=== PATIENT | female | born 1985 | race Caucasian/White ===

== ENCOUNTER 2021-11-05 10:03 | Emergency (ER) | payer OTHER, SELFPAY ==
--- NOTE | 2021-11-05 10:09 | ED.URI ---
HPI - URI/Sore Throat General Chief Complaint: Upper Respiratory Infection Stated Complaint: Cough,Headache,Body Aches Source: patient, RN notes reviewed and old records reviewed History of Present Illness HPI Narrative: 36-year-old female presents with 1-1/2 days of cough, generalized headache, sinus congestion. She also complains of chills. Denies fevers. Has taken Tylenol and ibuprofen for symptoms. MD elicited complaint: cough Pertinent past history: sinusitis Related Data Allergies Allergy/AdvReac Type Severity Reaction Status Date / Time cefprozil Allergy Intermediate DIARRHEA Verified 11/05/21 10:13 clavulanic acid Allergy Intermediate Nausea and Verified 11/05/21 10:13 Vomiting methylphenidate Allergy Intermediate Confusion Verified 11/05/21 10:13 metoclopramide Allergy Intermediate Confusion Verified 11/05/21 10:13 azithromycin AdvReac Intermediate CONSTANT Verified 11/05/21 10:13 DIARRHEA Review of Systems Review of Systems: All systems reviewed & are unremarkable except as noted in HPI and below Constitutional: Constitutional: Reports as per HPI, Reports chills and Denies fever(s) Eyes: Eyes: Reports no additional eye complaints ENT: Reports as per HPI, Reports nasal congestion and Denies sore throat Cardiovascular: Cardiovascular: Denies chest pain Respiratory: Respiratory: Reports as per HPI, Denies chest congestion, Reports cough, Denies dyspnea and Denies wheezing Gastrointestinal: Gastrointestinal: Reports no additional gastrointestinal complaints, Denies abdominal pain, Denies nausea and Denies vomiting Musculoskeletal: Musculoskeletal: Reports no additional musculoskeletal complaints Integumentary/Breasts: Skin/Breast: Reports system reviewed and no additional complaints, except as docu Neurologic: Reports as per HPI and Reports headache(s) Psychiatric: Psychiatric: Reports no additional psychiatric complaints Allergic/Immunologic: Allergic/Immunologic: Reports no additional allergic/immunologic complaints [facility] Surgical History Surgical History (Updated 11/05/21 @ 10:38 by Angelique Shen) Hx of cholecystectomy Social History Social History (Updated 11/05/21 @ 10:38 by Angelique Shen) Living arrangements: with family Gender identity (if verbalized by the patient): Female Comments At the time of my signature, I reviewed and agree with the nursing past medical, surgical, social, and family history. There is no relevant family history pertinent to the patient complaint. Exam Const: General: healthy appearing, no acute distress and alert Nutritional Appearance: well nourished and obese morbidly obese Orientation/consciousness: patient oriented x3 Limitations: no limitations HENMT: Head: normal to inspection Ears: external ears normal, TM's normal bilaterally and EAC's normal Eyes: Conjunctivae: conjunctivae normal Pupils: Equal, round and reactive pupils present Neck: Neck: normal visual inspection, no lymphadenopathy and no meningeal signs Chest: Chest palpation & inspection: normal inspection of the chest Resp: Effort & Inspection: normal respiratory effort and no use of accessory muscles Auscultation: clear to auscultation bilaterally, no crackles, no rales, no rhonchi and no wheezes Cardio: Rate: regular rate Rhythm: regular rhythm Back/Spine/Pelvis: Back: no CVA tenderness Skin: General skin exam: normal color Rashes: no rashes Wounds: no wounds Neuro: General: patient oriented x3, moves all extremities, no meningeal signs and no focal motor deficits Speech: normal speech Gait exam (Neuro): Normal gait present Extrem: General: normal to inspection Psych: Appearance: grossly normal and well kempt Mental Status: mental status grossly normal Affect: normal affect Thought content: Yes Normal thought content present Course Course Emergency Course: Discharge instructions reviewed with patient, as well as provided in writing per nursing staff. The ins
[2021-11-05 10:23] VITALS: BP 159/98; PULSE 112; RESP 18; TEMP 37.6; O2SAT 98
== END 2021-11-05 10:43 | disposition home or self-care (01) ==
PROVIDERS: Emergency Provider Nurse Practitioner; PCP Emergency Medicine
DX: J06.9 Acute upper respiratory infection, unspecified (principal)
CPT/HCPCS: 99213; G0463

== ENCOUNTER 2022-10-18 15:31 | Emergency (ER) | payer OTHER, SELFPAY ==
[2022-10-18 15:55] VITALS: BP 147/101; PULSE 99; RESP 18; TEMP 36.4; O2SAT 98
--- NOTE | 2022-10-18 15:56 | ED.URI ---
HPI - URI/Sore Throat General Chief Complaint: Upper Respiratory Infection Stated Complaint: cough,congestion Time Seen by Provider: 10/18/22 15:57 Source: patient, RN notes reviewed and old records reviewed Mode of arrival: ambulatory Limitations: no limitations History of Present Illness HPI Narrative: 36-year-old female to the [facility] with complaints of cough and congestion for about 1 week. Also complaining of a rash that she normally uses triamcinolone on on the right lateral abdomen. Has tried a couple [id number] cold medications denies chest pain, shortness of breath or abdominal pain. No nausea vomiting or diarrhea. Related Data Allergies Allergy/AdvReac Type Severity Reaction Status Date / Time cefprozil Allergy Intermediate DIARRHEA Verified 10/18/22 16:01 clavulanic acid Allergy Intermediate Nausea and Verified 10/18/22 16:01 Vomiting methylphenidate Allergy Intermediate Confusion Verified 10/18/22 16:01 metoclopramide Allergy Intermediate Confusion Verified 10/18/22 16:01 azithromycin AdvReac Intermediate CONSTANT Verified 10/18/22 16:01 DIARRHEA Review of Systems Review of Systems: All systems reviewed & are unremarkable except as noted in HPI and below Constitutional: Constitutional: Reports no additional constitutional complaints Eyes: Eyes: Reports no additional eye complaints ENT: Reports as per HPI and Reports nasal congestion Cardiovascular: Cardiovascular: Reports no additional cardiovascular complaints, Denies chest pain and Denies dyspnea Respiratory: Respiratory: Reports as per HPI, Denies chest congestion, Reports cough and Denies dyspnea Gastrointestinal: Gastrointestinal: Reports no additional gastrointestinal complaints, Denies abdominal pain, Denies nausea and Denies vomiting Musculoskeletal: Musculoskeletal: Reports no additional musculoskeletal complaints Integumentary/Breasts: Skin/Breast: Reports as per HPI and Reports rash Neurologic: Reports system reviewed and no additional complaints, except as documented Psychiatric: Psychiatric: Reports no additional psychiatric complaints Allergic/Immunologic: Allergic/Immunologic: Reports no additional allergic/immunologic complaints [facility] Surgical History Surgical History Hx of cholecystectomy Social History Social History Gender identity (if verbalized by the patient): Female Comments At the time of my signature, I reviewed and agree with the nursing past medical, surgical, social, and family history. There is no relevant family history pertinent to the patient complaint. Exam Const: General: cooperative, healthy appearing, comfortable, no acute distress, alert and well nourished Nutritional Appearance: well nourished and obese Orientation/consciousness: patient oriented x3 Limitations: no limitations HENMT: Head: normal to inspection Ears: hearing grossly normal bilaterally and external ears normal Face/Nose/Sinus: Normal external nose present, Normal nares present, Normal nasal mucous membranes and turbinates present and normal facial exam Face and sinus: normal facial exam Mouth: Yes Normal oral and palatal mucosa present, Yes lip normal and Yes moist mucous membranes Throat: posterior oropharynx normal, uvula midline and postnasal drainage Eyes: General: appearance normal, both eyes and all related structures Alignment and Position: alignment normal Periorbital: periorbital findings normal Conjunctivae: conjunctivae normal Pupils: Equal, round and reactive pupils present EOM: EOMs intact bilaterally Neck: Neck: normal visual inspection, full ROM, no lymphadenopathy and no meningeal signs Chest: Chest palpation & inspection: normal inspection of the chest Resp: Effort & Inspection: normal respiratory effort and able to speak in complete sentences Auscultation: clear to auscultation bilat
== END 2022-10-18 16:27 | disposition home or self-care (01) ==
PROVIDERS: Emergency Provider Nurse Practitioner; PCP Emergency Medicine
DX: J06.9 Acute upper respiratory infection, unspecified (principal); R21 Rash and other nonspecific skin eruption; R09.82 Postnasal drip
CPT/HCPCS: 99213; G0463

== ENCOUNTER 2024-10-12 10:15 | Outpatient (CLI) | payer OTHER, SELFPAY ==
[2024-10-12 11:43] LABS: Basophils Absolute Auto 0.1 K/mm3 (0.0-0.1); Basophils Percent Auto 0.4 % (0.2-1.2); Eosinophils Absolute Auto 0.2 K/mm3 (0-0.3); Eosinophils Percent Auto 1.3 % (0-4.4); Hematocrit 41.8 % (37.0-47.0); Hemoglobin 14.1 g/dL (12.0-15.0); Immature Granulocyte Absolute 0.13 K/mm3 (0.00-0.031); Immature Granulocyte Percent A 0.9 % (0-0.5); Lymphocytes Percent Auto 17.5 % (18.3-44.2); Mean Corpuscular HGB Conc 33.7 g/dl (32-36); Mean Corpuscular Hemoglobin 29.7 pg (26-34); Mean Corpuscular Volume 88.2 fl (80-100); Mean Platelet Volume 8.8 fl (7.4-10.4); Monocytes Absolute Auto 0.6 K/mm3 (0.1-0.6); Monocytes Percent Auto 4.2 % (2.6-8.5); Neutrophils Absolute Auto 10.8 K/mm3 (1.3-6.7); Neutrophils Percent Auto 75.7 % (45.5-73.1); Platelet Count Result 293 k/mm3 (150-375); Red Blood Count 4.74 M/mm3 (4.2-5.4); Red Cell Distribution Width 12.5 % (11.5-14.5); White Blood Count 14.3 K/mm3 (4.5-10.0)
[2024-10-12 11:54] LABS: Glucose 1 Hour PP 50gm Dose 124 mg/dL
[2024-10-12 12:36] LABS: HIV 1/2 Ab P24 Ag Result Negative (Negative)
[2024-10-12 12:38] LABS: Hepatitis B Surface Antigen Negative (Negative); Rubella IgG Antibody 4.7 IU/ML
[2024-10-12 14:07] LABS: Rapid Plasma Reagin Non-Reactive (NonReactive)
[2024-10-13 08:27] LABS: Varicella IgG Antibody 7.51 S/CO
== END 2024-10-12 10:16 | disposition home or self-care (01) ==
LOC: ANHLAB 10:17
PROVIDERS: PCP Emergency Medicine; Visit Provider Student in an Organized Health Care Education/Training Program
DX: N94.89 Other specified conditions associated with female genital organs and menstrual cycle (principal)
CPT/HCPCS: 36415; 82947; 84702; 85025; 86592; 86644; 86703; 86747; 86762; 86787; 86850; 86900; 86901; 87086; 87340; G0432

== ENCOUNTER 2024-11-11 10:34 | Outpatient (CLI) | payer OTHER, SELFPAY ==
--- NOTE | ~2024-11-11 | US_ITS ---
EXAMINATION: US OB limited DATE: 11/11/2024 12:19 INDICATION: Unable to keep may be on monitor TECHNIQUE: Real-time ultrasound of the pelvis was performed. The interpreting radiologist was not pre sent for the study. COMPARISON: None. FINDINGS: There is a single living fetus in vertex presentation. The placenta is anterior fundal. heart rate is 153 beats per minute (bpm). The amniotic fluid volume is subjectively normal with normal deep est vertical pocket measurement of 6.5 cm. IMPRESSION: 1. Single living fetus in vertex presentation with heart rate of 153 bpm. 2. Subjectively normal amniotic fluid volume. Reviewed, dictated and finalized at location B. AT[employer] PROFESSIONAL IMPRESSION: 1. Single living fetus in vertex presentation with heart rate of 153 bpm . 2. Subjectively normal amniotic fluid volume.
[2024-11-11 11:13] VITALS: BP 134/62; PULSE 84
[2024-11-11 11:16] VITALS: BP 131/56; PULSE 91
[2024-11-11 11:20] LABS: Basophils Absolute Auto 0.1 K/mm3 (0.0-0.1); Basophils Percent Auto 0.5 % (0.2-1.2); Eosinophils Absolute Auto 0.2 K/mm3 (0-0.3); Eosinophils Percent Auto 1.5 % (0-4.4); Hematocrit 37.8 % (37.0-47.0); Hemoglobin 12.9 g/dL (12.0-15.0); Immature Granulocyte Absolute 0.13 K/mm3 (0.00-0.031); Lymphocytes Absolute Auto 2.25 K/mm3 (0.9-3.2); Lymphocytes Percent Auto 17.4 % (18.3-44.2); Mean Corpuscular HGB Conc 34.1 g/dl (32-36); Mean Corpuscular Volume 87.9 fl (80-100); Mean Platelet Volume 8.8 fl (7.4-10.4); Monocytes Absolute Auto 0.9 K/mm3 (0.1-0.6); Monocytes Percent Auto 6.6 % (2.6-8.5); Neutrophils Absolute Auto 9.5 K/mm3 (1.3-6.7); Platelet Count Result 296 k/mm3 (150-375); Red Cell Distribution Width 13.1 % (11.5-14.5)
[2024-11-11 11:24] LABS: Add Urine Microscopic? YES; Appearance Urine Cloudy (Clear); Bacteria Urine 4+ /hpf; Bilirubin Urine Negative (Negative); Blood Urine Negative (Negative); Color Urine Yellow (Yellow); Glucose Urine UA 3+ mg/dL (Negative); Ketones Urine Negative (Negative); Leukocyte Esterase Ur 2+ LEU/UL (Negative); Nitrate Urine Negative (Negative); Non Pathogenic Casts 0-2; Protein Urine Trace mg/dL (Negative); RBC Urine 0-2 /hpf (0-2); Specific Grav Ur 1.022 (1.001-1.035); Squamous Epithelial Cell Urine Many /hpf (Few); Urobilinogen Urine 0.2 mg/dL (<2.0); WBC Urine 21-50 /hpf (0-3); pH Urine 5.5 (5.0-9.0)
[2024-11-11 11:29] LABS: Alanine Aminotransferase 13 U/L (6-35); Albumin Level 3.4 g/dL (3.5-5.1); Alkaline Phosphatase 58 U/L (38-126); Anion Gap 3 mmol/L (4-12); Aspartate Amino Transferase 15 U/L (14-36); Bilirubin,Total 0.3 mg/dL (0.2-1.3); Blood Urea Nitrogen 7 mg/dL (7-17); Calcium 9.2 mg/dL (8.4-10.2); Carbon Dioxide 22 mmol/L (22-30); Chloride 109 mmol/L (98-107); Estimated Glomerular Filt Rate > 60; Glucose 103 mg/dL (65-110); Potassium 3.7 mmol/L (3.4-5.0); Sodium 134 mmol/L (137-145); Uric Acid 4.1 mg/dL (2.5-7.5)
[2024-11-11 11:31] VITALS: BP 130/62; PULSE 79
[2024-11-11 11:37] LABS: Creatinine Urine 94.8 mg/dL; Total Protein Urine Random 8 mg/dL; Ur Ttl Prot Creatinine Ratio 0.08 mg/mg (0-0.20)
--- NOTE | 2024-11-11 11:38 | PC.NURSE ---
Unable to keep baby on the monitor due to gestational age and maternal size, FHT's 130's. Dr Villeda notified and orders for US to confirm well being.
[2024-11-11 12:15] VITALS: BMI 60.3
== END 2024-11-11 12:15 | disposition home or self-care (01) ==
LOC: ANHOBOP 10:37 → ANHOBPP 10:39
PROVIDERS: PCP Emergency Medicine; Visit Provider Obstetrics & Gynecology
DX: O13.9 Gestational [pregnancy-induced] hypertension without significant proteinuria, unspecified trimester (principal); Z3A.00 Weeks of gestation of pregnancy not specified
CPT/HCPCS: 36415; 76815; 80053; 81001; 82570; 84156; 84550; 85025; 87086; 99199

== ENCOUNTER 2024-12-06 08:17 | Outpatient (CLI) | payer OTHER, SELFPAY ==
--- OUTSIDE RECORDS SUMMARY | 2024-12-06 08:33 | XMS_ITS | Clinical Summary ---
Author Organization [facility] Address [address] [place] [address]. 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 6 tablet 3 Active aspirin 81 MG chewable tablet Chew 2 tablets (162 mg total) by mouth daily. Active albuterol sulfate HFA 108 (90 Base) MCG/ACT inhaler Inhale 4 puffs into the lungs every 4 (four) hours as needed for Wheezing or Shortness of breath (cough). 18 g 4 Active Encounters Date Type Department Care Team Description 09/12/2024 11:00 AM INSULATOR TECHNICIAN - 09/12/2024 12:27 PM [facility] Emergency [facility] Emergency Room [address] [place] [address] Amanda Marquez MD URI Discharge Disposition: Home or Self Care (Routine Discharge) 09/12/2024 Travel from Last 3 Months Social History Tobacco Use Types Packs/Day Years Used Date Smoking Tobacco: Never Smokeless Tobacco: Never Tobacco Cessation:Counseling Given: Not Answered Comments Yes Sex and Gender Information Value Date Recorded Sex Assigned at Not on file Legal Sex Female 7:54 PM CDT Gender Identity Not on file Sexual Orientation Not on file Last Filed Vital Signs Vital Sign Reading Time Taken Comments Blood Pressure 131/72 09/12/2024 12:25 PM INSULATOR TECHNICIAN Pulse 70 09/12/2024 12:25 PM INSULATOR TECHNICIAN Temperature 36.7 ??C (98 ??F) 09/12/2024 12:25 PM INSULATOR TECHNICIAN Respiratory Rate 22 09/12/2024 12:25 PM INSULATOR TECHNICIAN Oxygen Saturation 95% 09/12/2024 12:25 PM INSULATOR TECHNICIAN Inhaled Oxygen Concentration - - Weight 159.2 kg (351 lb) 09/12/2024 11:02 AM INSULATOR TECHNICIAN Height 165.1 cm (5' 5 ) 09/12/2024 11:02 AM INSULATOR TECHNICIAN Body Mass Index 58.41 09/12/2024 11:02 AM INSULATOR TECHNICIAN Plan of Treatment Health Maintenance Due Date Last Done Comments Cervical Cancer Screening Pa p Smear (Age 30 to 64) Every 3 Years 1987 Annual Physical 1990 Hepatitis C 2005 DTaP, Tdap and Td Vaccines ( 1 - Tdap) 2006 Hepatitis B Vaccines (1 of 3 - 19+ 3-dose series) 2006 Cervical Cancer Screening Pa p with HPV Testing (Age 30 to 64) Every 5 Years 2017 Cervical Cancer Screening [facility] HPV 2017 COVID-19 Vaccine ( - 2023-2 5 season) 2024 Influenza Adult (#1) 2024 08/06/2019, 07/30/2018, 10/08/2017 RSV Immunization or 60+ Years (1 - 1-dose 75+ series) 2062 HPV Vaccines Aged Out No longer eligi ble based on patient's age to complete this topic Meningococcal B Vaccine Aged Out No l onger eligible based on patient's age to complete this topic Meningococcal Vaccine Aged Out No timur kosta eligible based on patient's age to complete this topic Pneumococcal Vaccine: Pediatrics (0 to 5 Years) and At-Risk Patients (6 to 64 Years) Aged Out No longer eligible b ased on patient's age to complete this topic RSV Immunizations Under 20 Months Aged Out No longer eligible b ased on patient's age to complete this topic Procedures Procedure Name Priority Date/Time Associated Diagnosis Comments XR CHEST PA+LAT STAT 09/12/2024 11:50 AM INSULATOR TECHNICIAN INFLUENZA A & B STAT 09/12/2024 11:23 AM INSULATOR TECHNICIAN CORONAVIRUS (COVID 19) STAT 09/12/2024 11:23 AM INSULATOR TECHNICIAN from Last 3 Months Results * XR CHEST PA+LAT (09/12/2024 11:50 AM INSULATOR TECHNICIAN) Anatomical Region Laterality Modality Chest Radiographic Carmen ging 09/12/2024 11:5 4 AM INSULATOR TECHNICIAN Impressions 09/12/2024 11:54 AM INSULATOR TECHNICIAN IMPRESSION: No acute findings Ordered By: AMANDA MARQUEZ Interpreted By: Caden Valente MD, 09/12/2024 11:54 AM Narrative 09/12/2024 11:54 AM INSULATOR TECHNICIAN [address] [place] [address] 2 VIEWS OF THE CHEST Clinical history: Cough Comparison: None 2 views of the chest demonstrate the cardiac silhouette to be normal in size and appearance. The pulmonary vasculature appears normal. The Lungs are clear. No consolidations or effusions are seen. Procedure Note Caden Valente MD - 09/12/[address] [place] [address] 2 VIEWS OF THE CHEST Clinical history: Cough Comparison: None 2 views of the chest demonstrate the cardiac silhouette to be normal insize and appearance. The pulmonary vasculature appears normal. The Lungsare clear. No consolidations or effusions are seen. IMPRESSION: No acute findings Ordered By: AMANDA MARQUEZ Interpreted By: Caden Valente MD, 09/12/2024 11:54 AM us Amanda Marquez MD GENERAL IMAGING Final Resu lt * CORONAVIRUS (COVID-19) MOLECULAR (09/12/2024 11:23 AM INSULATOR TECHNICIAN) CORONAVIRUS SARS COV 2 RNA NEGATIVE NEGATIVE 09/12/2024 12:17 PM INSULATOR TECHNICIAN [facility] Comment: NEGATIVE RESULTS DO NOT RULE OUT COVID 19 AND SHOULD NOT BE USED THE SOLE BASIS FOR TREATMENT OR PATIENT MANAGEMENT DECISIONS, INCLUDING INFECTION CONTROL DECISIONS. NEGATIVE RESULTS SHOULD BE CONSIDERED IN THE CONTEXT OF A PATIENT'S RECENT EXPOSURES, HISTORY AND THE PRESENCE OF CLINICAL SIGNS AND SYMPTOMS CONSISTENT WITH COVID 19. THE ID NOW COVID-19 2.0 TEST HAS BEEN AUTHORIZED BY THE FDA UNDER EAU FOR USE BY AUTHORIZED LABORATORIES. PERFORMED BY NUCLEIC ACID AMPLIFICATION FOR MOLECULAR QUALITATIVE DETECTION OF SARS-COV-2. SPECIMEN TYPE NASAL 09/12/2024 11:23 AM INSULATOR TECHNICIAN [facility] NASOPHARYNGEAL SWAB / Unknown 09/12/2024 11:23 AM INSULATOR TECHNICIAN Amanda Marquez MD MICROBIOLOGY - GENERAL ORD ERABLES Final Result [facility] [address] [place] [address], [place] [phone] * INFLUENZA A & B (09/12/2024 11:23 AM INSULATOR TECHNICIAN) SPECIMEN TYPE NASOPHARYNX 09/12/2024 11:59 AM INSULATOR TECHNICIAN [facility] INFLUENZA A NEGATIVE NEGATIVE 09/12/2024 11:59 AM INSULATOR TECHNICIAN [facility] INFLUENZA B NEGATIVE NEGATIVE 09/12/2024 11:59 AM INSULATOR TECHNICIAN [facility] NASOPHARYNGEAL SWAB / Unknown 09/12/2024 11:23 AM INSULATOR TECHNICIAN us Amanda Marquez MD MICROBIOLOGY - GENERAL ORD ERABLES Final Result [facility] [address] [place] [address], from Last 3 Months Insurance [employer] Care Teams Thermoforming Machine Operator Relationship Specialty Start Date End Date Yvon Crook MD [address] [place] [address] PCP - General FAMILY PRACTICE 12/18/22
--- OUTSIDE RECORDS SUMMARY | 2024-12-06 08:33 | XMS_ITS | Referral Summary ---
Author Organization [facility] Address [address] [address] Care Team Providers Care Nursing Technician Name Role Phone Unavailable Primary Care Provider Unavailabl e Source Comments [facility],non-owned Affiliates and Associated Physician Practices is amultiple site organization consisting of ambulatory clinics and hospital sitesin [place], [place], [place] and [place]. This disclosure is being madepursuant to the Care Everywhere program and may not contain all information available regarding this patient. Last updated 18.[facility] Encounters Date Type Department Care Team Description 11/09/2024 9:43 AM CRIMINOLOGY PROFESSOR - 11/09/2024 11:59 PM CRIMINOLOGY PROFESSOR Hospital Encounter Replaced by [facility] [address] [place], [place] [id number] Head, Shanel Chen MD Discharge Disposition: Home or Self Care 10/26/2024 8:15 AM CRIMINOLOGY PROFESSOR - 10/26/2024 11:59 PM CRIMINOLOGY PROFESSOR Hospital Encounter Replaced by [facility] [address] [place] [phone] Walter Joshi MD Discharge Disposition: Home or Self Care 10/12/2024 9:00 AM CRIMINOLOGY PROFESSOR - 10/12/2024 11:59 PM CRIMINOLOGY PROFESSOR Hospital Encounter Replaced by [facility] [address] [place] [phone] Lobito Alexander DO SWITCH REPAIRER Discharge Disposition: Home or Self Care 09/28/2024 8:09 AM CRIMINOLOGY PROFESSOR - 09/28/2024 11:59 PM CRIMINOLOGY PROFESSOR Hospital Encounter Replaced by [facility] [address] [place] [phone] Tamia Rangel MD Discharge Disposition: Home or Self Care 09/15/2024 Travel 09/15/2024 12:08 PM CRIMINOLOGY PROFESSOR - 09/15/2024 3:18 PM CRIMINOLOGY PROFESSOR Hospital Encounter [facility] [address] [place] [address] Head, Shanel Chen MD Discharge Disposition: Home or Self Care 09/15/2024 Telephone Replaced by [facility] [address] [place] [phone] Monica Meléndez, DEVANTE Question (Called to see if OB has intial labs are back.) 09/15/2024 8:56 AM CRIMINOLOGY PROFESSOR - 09/15/2024 12:07 PM CRIMINOLOGY PROFESSOR Hospital Encounter Replaced by [facility] [address] [place] [phone] Walter Joshi MD Discharge Disposition: Home or Self Care 09/15/2024 8:54 AM CRIMINOLOGY PROFESSOR - 09/15/2024 8:55 AM CRIMINOLOGY PROFESSOR Hospital Encounter Replaced by [facility] [address] [place] [phone] Walter Joshi MD Discharge Disposition: Home or Self Care 09/14/2024 Telephone Replaced by [facility] [address] [place] [phone] Monica Meléndez RN Future Appointment (Called patient about her upcoming appt tomorrow regarding PTD at 32 weeks. ) from Last 3 Months Allergies Active Allergy Reactions Criticality Noted Date Comments Augmentin Nausea and/or Vomiting 08/24/2024 Azithromycin Diarrhea 08/24/2024 Cefprozil Diarrhea 08/24/2024 Methylphenidate CREW BOSS Dysfunction 08/24/2024 Metoclopramide CREW BOSS Dysfunction 08/24/2024 Medications * Be aware that medications may not be up to date on this document. Alwaysverify current medications with the patient. Medication Sig Dispensed Refills Start Date End Date Status Vit-Fe Fumarate-FA ( vitamin) 28-0.8 MG tablet Take 1 (one) tablet by mouth once daily Active aspirin EC (Ecotrin) 81 MG tablet Take 2 (two) tablets by mouth once daily Active guaiFENesin ER 12hr (Mucinex) 600 MG tablet Take 1 (one) tablet by mouth every 12 hours Active famotidine (Pepcid) 20 MG tablet Take 1 (one) tablet by mouth every 12 hours 30 tablet 2 09/15/2024 Active budesonide-formoterol (Symbicort) 80-4.5 MCG/ACT inhaler Inhale 2 (two) puffs by mouth 2 times daily 10.2 g 1 09/15/2024 Active NIFEdipine CR osmotic 24hr (Procardia-XL) 30 MG tablet Take 1 (one) tablet by mouth once daily 30 tablet 2 09/15/2024 Active Active Problems Problem Noted Date Diagnosed Date Shortness of breath 09/15/2024 Estimated Date of Delivery Comme nts Yes 02/28/2025 Based on last me nstrual period of 05/24/2024 Social History Tobacco Use Types Packs/Day Years Used Date Smoking Tobacco: Never Smokeless Tobacco: Never Tobacco Cessation:Counseling Given: Not Answered Alcohol Use Standard Drinks/Week Comments Not Currently 0 (1 standard drink = 0.6 oz pur e alcohol) Overall Financial Resource Strain (CARDIA) Answe r Date Recorded How hard is it for you to pa y for the very basics like food, housing, medical care, and heating? Not hard at all 09/15/2024 [facility] - Occupational Stress Questionnaire Answer Date Recorded Do you feel stress - tense, restless, nervous, or anxious, or unable to sleep at night because your mind is troubled all the time - these days? Not at all 09/15/2024 Hunger Vital Sign Answer Date Recorded Within the past 12 months, y ou worried that your food would run out before you got the money to buy more. Never true 09/15/20 24 Within the past 12 months, t he food you bought just didn't last and you didn't have money to get more. Never true 09/15/2024 PRAPARE - Transportation Answer Date Re corded In the past 12 months, has l ack of transportation kept you from medical appointments or from getting medications? No 04/2024 In the past 12 months, has l ack of transportation kept you from meetings, work, or from getting things needed for daily living? No 09/15/2024 Housing Stability Vital Sign Answer [place] e Recorded In the last 12 months, was t here a time when you were not able to pay the mortgage or rent on time? No 09/15/2024 In the past 12 months, how m any times have you moved where you were living? 1 09/15/2024 At any time in the past 12 m [facility], were you homeless or living in a correction (including now)? No 09/15/2024 Estimated Date of Delivery Comme nts Yes 02/28/2025 Based on last me nstrual period of 05/24/2024 Sex and Gender Information Value Date Recorded Sex Assigned at Not on file Gender Identity Not on file Sexual Orientation Not on file Last Filed Vital Signs Vital Sign Reading Time Taken Comments Blood Pressure 151/66 09/15/2024 2:50 PM CRIMINOLOGY PROFESSOR Pulse 88 09/15/2024 1:53 PM CRIMINOLOGY PROFESSOR Temperature 37.1 ??C (98.7 ??F) 09/15/2024 12:[address] Respiratory Rate 19 09/15/2024 1:53 PM CRIMINOLOGY PROFESSOR Oxygen Saturation 98% 09/15/2024 1:29 PM CRIMINOLOGY PROFESSOR Inhaled Oxygen Concentration - - Weight 159.2 kg (351 lb) 09/15/2024 9:30 AM CRIMINOLOGY PROFESSOR Height 165.1 cm (5' 5 ) 09/15/2024 9:30 AM CRIMINOLOGY PROFESSOR Body Mass Index 58.41 09/15/2024 9:30 AM CRIMINOLOGY PROFESSOR Plan of Treatment Upcoming Encounters Date Type Department Care Team (Late st Contact Info) Description 12/07/2024 9:45 AM CRIMINOLOGY PROFESSOR Hospital Encounter [facility] [address] [place] [phone] Tamia Rangel MD [address] [place] [address] 03/29/2025 Hospital Encounter [facility] [address] [place] [address] Procedures Procedure Name Priority Date/Time Associated Diagnosis Comments SONOGRAM - COMPLETE Routine 11/09/2024 9 :49 AM CRIMINOLOGY PROFESSOR Antepartum multigravida of advanced maternal age (HCC) Obesity affecting in second trimester, unspecified obesity type (HCC) History of delivery, currently (HCC) 20 weeks gestation of (HCC) Encounter for screening for cervical length (HCC) SONOGRAM - COMPLETE Routine 10/26/2024 8 :17 AM CRIMINOLOGY PROFESSOR Antepartum multigravida of advanced maternal age (HCC) Obesity affecting in second trimester, unspecified obesity type (HCC) History of delivery, currently (HCC) 20 weeks gestation of ([facility]) Encounter for screening for cervical length ([facility]) SONOGRAM - COMPLETE Routine 10/12/2024 9 :07 AM CRIMINOLOGY PROFESSOR Antepartum multigravida of advanced maternal age (HCC) Obesity affecting in second trimester, unspecified obesity type (HCC) History of delivery, currently (HCC) 20 weeks gestation of ([facility]) Encounter for screening for cervical length (HCC) SONOGRAM - TRANSVAGINAL Routine 09/28/2024 8:10 AM CRIMINOLOGY PROFESSOR Antepartum multigravida of advanced maternal age (HCC) Obesity affecting in second trimester, unspecified obesity type (HCC) History of delivery, currently ([facility]) Encounter for screening for cervical length (HCC) 18 weeks gestation of ([facility]) Encounter for anatomic survey ([facility]) URINE MICROSCOPIC ONLY REFLEX TO CULTURE Routine 09/15/2024 2:23 PM CRIMINOLOGY PROFESSOR Chronic hypertension affecting (HCC) PROTEIN CREATININE RATIO URINE RANDOM PNL STAT 09/15/2024 2:23 PM CRIMINOLOGY PROFESSOR Chronic hypertension affecting (HCC) URINALYSIS REFLEX MICROSCOPIC REFLEX CULTURE STAT 09/15/2024 2:23 PM CRIMINOLOGY PROFESSOR Chronic hypertension affecting (HCC) CULTURE URINE Routine 09/15/2024 2:23 PM CRIMINOLOGY PROFESSOR Chronic hypertension affecting (HCC) RESPIRATORY PANEL WITH SARS-COV-2 BY PCR (STL) Routine 09/15/2024 2:13 PM CRIMINOLOGY PROFESSOR Shortness of breath COMPREHENSIVE METABOLIC PANEL STAT 09/15/2024 12:38 PM CRIMINOLOGY PROFESSOR Shortness of breath CBC W AUTO DIFFERENTIAL STAT 09/15/2024 12:38 PM CRIMINOLOGY PROFESSOR Shortness of breath SONOGRAM - COMPLETE Routine 09/15/2024 8 :56 AM CRIMINOLOGY PROFESSOR Encounter for (NT) nuchal translucency scan (HCC) History of delivery, currently (HCC) Antepartum multigravida of advanced maternal age (HCC) Class 3 severe obesity with body mass index (BMI) of 50.0 to 59.9 in adult, unspecified obesity type, unspecified whether serious comorbidity present (HCC) from Last 3 Months Results * SONOGRAM - COMPLETE (11/09/2024 9:49 AM CRIMINOLOGY PROFESSOR) Only the most recent of4 resultswithin the time period is included. Linked Results Indication ======== Incomplete Anatomy Screen Left Complex Adnexal Mass History ====== OB History ? 4. Para 1 ? [id number] ? 1. miscarriage ? 2. live 2010. ? Gest. age 32 w + 5 d. Weight 1,956 g. Details: PPROM/PTL ? 3. miscarriage Lab Tests Test ? Date ? Result NIPT ? Low risk Maternal Assessment Physical Exam ??Height 168 cm, 5 ft 6 in. Initial weight 160 kg, 353 lb. Initial BMI 56.98 kg/m? Method ====== Transabdominal ultrasound. View: Poor view ========= Meier . Number of fetuses: 1 Dating ====== ? Date ?Details ? Gest. age ? RAMU LMP ?05/24/2024 ? 24 w + 1 d ?02/28/2025 U/S ?11/09/2024 ?based upon AC, BPD, Femur, HC ? 24 w + 6 d ?02/23/2025 Assigned dating based on the LMP, selected on 09/15/2024 ?24 w + 1 d ?02/28/2025 General Evaluation Cardiac activity present. FHR 157 bpm. Presentation: cephalic Placenta: Placental site: anterior Amniotic fluid: Amount of AF: normal. MVP 8.4 cm Biometry BPD ?61.0 ?mm ?24w 6d ??68% ? Hadlock HC ? 234.7 ?? mm ?25w 4d ??81% ? Hadlock AC ? 205.4 ?? mm ?25w 1d ??72% ? Hadlock Femur ?42.1 ?mm ?23w 5d ??24% ? Hadlock Humerus ?39.8 ?mm ?24w 1d ??42% ? Jluio HC / AC ?1.14 ?-/- ? Hadlock Weight Calculation: EFW ?718 ? g ? 63% ? Hadlock EFW (lb,oz) ?1 lb 9 ??oz EFW by ? Hadlock ([id number]) appropriate Growth Overview Exam date ?GA ?BPD (mm) ?HC (mm) AC (mm) FL (mm) HL (mm) EFW (g) 09/15/2024 ?16w 2d ??33.5 ?52% ? 122.6 ?? 29% ? 102 ? 48% ? 19.6 ?27% ?143 ?27% 10/12/2024 ?20w 1d ??48.4 ?70% ? 179.4 ?? 53% ? 158.7 ?? 72% ? 33 ?48% ? 29.3 ?32% ? 368 ? 73% 11/09/2024 ? 24w 1d ??61 ?68% ? 234.7 ?? 81% ? 205.4 ?? 72% ? 42.1 ?24% ? 39.8 ?42% ? 718 ? 63% Anatomy The following structures appear normal: Head / Neck ?Cranium. Abdomen ?Stomach. Kidneys. Bladder. The following structures could not be adequately visualized: Heart / Thorax 4-chamber view. 3-vessel view. 5-lctthm-qqeaqib view. Aortic arch view. Great vessels. Spine ?Cervical spine. Thoracic spine. Lumbar spine. Sacral spine. The following structures were documented previously: Head / Neck ?Lateral ventricles. Choroid plexus. Midline falx. Cavum septi pellucidi. Cerebellum. Cisterna magna. Face ? Lips. Profile. Nose. Heart / Thorax RVOT view. LVOT view. Situs. Bicaval view. Ductal arch view. ? Right lung. Left lung. Diaphragm. Abdomen ?Cord insertion. Genitals. Extremities / Skeleton Arms. Hands. Legs. Feet. sex: male. Maternal Structures Left Ovary ? Size 52 mm x 54 mm x 52 mm Left Adnexal Mass ?Findings: Echogenic. Size 21.0 mm x 24.0 mm x 14.0 mm. Mean 19.7 mm. Vol 3.695 cm? Impression ========= Single, live, intrauterine at 24w 1d size appears appropriate Amniotic fluid volume: normal No major malformations were seen within the limitations of ultrasound. Comment ======== A complex adnexal mass is identified on the left. Visualization is difficult due to acoustic properties however this appears largely unchanged from US imaging 10/12. The renal pelves are prominent bilaterally. Follow-up ======== Follow up in 4 weeks to complete anatomy. The left adnexa should be reevaluated at that time as well. Coding ====== Procedures ? 057[address]: US Preg Uterus Follow Up [employer] Anatomical Region Laterality Modality Other 11/09/2024 9:49 AM CRIMINOLOGY PROFESSOR Viktor Rodriguez MD [facility] ORDERABLES * SONOGRAM - TRANSVAGINAL (09/28/2024 8:10 AM CRIMINOLOGY PROFESSOR) Linked Results Indication ======== G1: SAB G2: 32 wk 1956 gm, PROM/PTL G3: SAB G4: Current , AMA 37 low-risk cf-DNA, Class III obesity (BMI 56) History ====== OB History ? 4. Para 1 ? [id number] Lab Tests Test ? Date ? Result NIPT ? Low risk Maternal Assessment = Physical Exam ??Height 168 cm, 5 ft 6 in. Weight 162 kg, 357 lb. Initial weight 160 kg, 353 lb. BMI 57.62 kg/m?. Initial BMI 56.98 kg/m?. Weight gain 2 kg, 4 lb ========= Meier . Number of fetuses: 1 Dating ====== ? Date ?Details ? Gest. age ? RAMU LMP ?05/24/2024 ? 18 w + 1 d ?02/28/2025 Assigned dating based on the LMP, selected on 09/15/2024 ?18 w + 1 d ?02/28/2025 General Evaluation Cardiac activity present. FHR 150 bpm. Presentation: cephalic Placenta: Placental site: anterior Amniotic fluid: Amount of AF: normal. MVP 5.8 cm Maternal Structures Cervix ? reassuring ? Approach - Transvaginal: Cervical length 4.60 cm Impression ========= Single , live, intrauterine at 18w 1d Amniotic fluid volume: normal Transvaginal cervical length appears reassuring measuring 4.6cm Anterior placenta, not a previa. Follow-up ======== Follow up ultrasound in 2 weeks for growth, detailed anatomic survey and transvaginal cervical length screening is recommended Coding ====== Procedures ? 23025: US Uterus Limited ? 13258: US Preg Uterus Transvaginal [employer] PACS Anatomical Region Laterality Modality Other 09/28/2024 8:10 AM CRIMINOLOGY PROFESSOR Viktor Rodriguez MD [facility] ORDERABLES * URINE MICROSCOPIC ONLY REFLEX TO CULTURE (09/15/2024 2:23 PM CRIMINOLOGY PROFESSOR) Reflex Status Culture to follow 09/15/2024 2:51 PM CRIMINOLOGY PROFESSOR [facility] RBC UA 3-5 0 - 5 # /hpf 09/15/2024 2:51 PM CRIMINOLOGY PROFESSOR [facility] WBC UA 0-5 0 - 5 # /hpf 09/15/2024 2:51 PM CRIMINOLOGY PROFESSOR [facility] Bacteria UA None Seen None Seen 09/15/2024 2:51 PM CRIMINOLOGY PROFESSOR [facility] Squamous Epithelial Cells 3-5 0 - 5 /hpf 09/15/2024 2:51 PM CRIMINOLOGY PROFESSOR [facility] Mucus UA 1+ /LPF 09/15/2024 2:51 PM CRIMINOLOGY PROFESSOR [facility] Urine URINE SPECIMEN OBTAINED BY CLEAN CATCH PROCEDURE / Unknown Collection / Unknown 09/15/2024 2:23 PM CRIMINOLOGY PROFESSOR 09/15/2024 2:30 PM CRIMINOLOGY PROFESSOR [facility] - 09/15/2024 2:51 PM CRIMINOLOGY PROFESSOR Shanel Gustavo Cast MD LAB - URINALYSIS ORD ERABLES [facility] [address] [place] [address] * (ABNORMAL) URINALYSIS REFLEX MICROSCOPIC REFLEX CULTURE (09/15/2024 2:23 PM CRIMINOLOGY PROFESSOR) Color UA Yellow Straw, Yellow 09/15/2024 2:47 PM [facility] Clarity UA Slt Cloudy(A) Clear 09/15/2024 2:47 PM [facility] Glucose UA Negative Negative 09/15/2024 2:47 PM [facility] Bilirubin UA Negative Negative 09/15/2024 2:47 PM [facility] Ketone UA 1+(A) Negative 09/15/2024 2:47 PM [facility] Specific [place] UA 1.029 1.005 - 1.030 09/15/2024 2:47 PM [facility] Blood UA Negative Negative 09/15/2024 2:47 PM [facility] pH UA 5.0 5.0 - 8.0 pH 09/15/2024 2:47 PM [facility] Protein UA 1+(A) Negative 09/15/2024 2:47 PM [facility] Urobilinogen UA Negative Negative mg/dL 09/15/2024 2:47 PM [facility] Nitrite UA Negative Negative 09/15/2024 2:47 PM [facility] Leukocyte UA Trace(A) Negative 09/15/2024 2:47 PM [facility] Urine Microscopy Urine microscopy to follow 09/15/2024 2:47 PM [facility] Reflex Status Culture to follow 09/15/2024 2:47 PM [facility] Urine URINE SPECIMEN OBTAINED BY CLEAN CATCH PROCEDURE / Unknown Collection / Unknown 09/15/2024 2:23 PM CRIMINOLOGY PROFESSOR 09/15/2024 2:30 PM CRIMINOLOGY PROFESSOR Narrative [facility] - 09/15/2024 2:47 PM CRIMINOLOGY PROFESSOR Ascorbic Acid can cause false negative urine strip tests for blood, glucose, nitrite, and bilirubin. Authorizing Provider Result Rebeca Cast MD LAB - URINALYSIS ORD ERABLES Performing Organization Address City/[facility]/ZIP Co de Phone Number [facility] [address] [place] [address] * CULTURE URINE (09/15/2024 2:23 PM CRIMINOLOGY PROFESSOR) Culture Urine <10,000 CFU/mL urogenital evgeny REYES 09/16/2024 9:43 PM CRIMINOLOGY PROFESSOR [facility] Urine URINE SPECIMEN OBTAINED BY CLEAN CATCH PROCEDURE / Unknown Collection / Unknown 09/15/2024 2:23 PM CRIMINOLOGY PROFESSOR 09/15/2024 2:30 PM CRIMINOLOGY PROFESSOR Narrative Authorizing Provider Result Rebeca Cast MD LAB - MICROBIOLOGY O RDERABLES Performing Organization Address City/[facility]/ZIP Co de Phone Number [facility] [address] [phone] * (ABNORMAL) PROTEIN CREATININE RATIO URINE RANDOM PNL (09/15/2024 2:23 PM CRIMINOLOGY PROFESSOR) Protein Urine 16.6(H) <11.9 mg/dL 09/15/2024 3:02 PM CRIMINOLOGY PROFESSOR [facility] Creatinine Urine 194.48 mg/dL 09/15/2024 3:02 PM CRIMINOLOGY PROFESSOR [facility] Protein/Creatin ine Ratio Urine 0.09 09/15/2024 3:02 PM CRIMINOLOGY PROFESSOR [facility] Urine URINE SPECIMEN OBTAINED BY CLEAN CATCH PROCEDURE / Unknown Collection / Unknown 09/15/2024 2:23 PM CRIMINOLOGY PROFESSOR 09/15/2024 2:29 PM CRIMINOLOGY PROFESSOR Narrative Authorizing Provider Result Rebeca Cast MD LAB - URINE CHEMISTR Y ORDERABLES Performing Organization Address City/[facility]/ZIP Co de Phone Number [facility] [address] [place] [address] * RESPIRATORY PANEL WITH SARS-COV-2 BY PCR (STL) (09/15/2024 2:13 PM CRIMINOLOGY PROFESSOR) Adenovirus PCR Not detected Not detected 09/15/2024 7:39 PM CRIMINOLOGY PROFESSOR [facility] Coronavirus 229E PCR Not detected Not detected 09/15/2024 7:39 PM CRIMINOLOGY PROFESSOR [facility] Coronavirus HKU1 PCR Not detected Not detected 09/15/2024 7:39 PM CRIMINOLOGY PROFESSOR [facility] Coronavirus NL63 PCR Not detected Not detected 09/15/2024 7:39 PM CRIMINOLOGY PROFESSOR [facility] Coronavirus OC43 PCR Not detected Not detected 09/15/2024 7:39 PM CRIMINOLOGY PROFESSOR [facility] COVID-19 PCR Not detected Not detected 09/15/2024 7:39 PM CRIMINOLOGY PROFESSOR [facility] Human Metapneumovirus PCR Not detected Not detected 09/15/2024 7:39 PM CRIMINOLOGY PROFESSOR [facility] Human Rhinovirus/Enterov irus PCR Not detected Not detected 09/15/2024 7:39 PM CRIMINOLOGY PROFESSOR [facility] Influenza A PCR Not detected Not detected 09/15/2024 7:39 PM CRIMINOLOGY PROFESSOR [facility] Influenza B PCR Not detected Not detected 09/15/2024 7:39 PM CRIMINOLOGY PROFESSOR [facility] Parainfluenza Virus 1 PCR Not detected Not detected 09/15/2024 7:39 PM CRIMINOLOGY PROFESSOR [facility] Parainfluenza Virus 2 PCR Not detected Not detected 09/15/2024 7:39 PM CRIMINOLOGY PROFESSOR [facility] Parainfluenza Virus 3 PCR Not detected Not detected 09/15/2024 7:39 PM CRIMINOLOGY PROFESSOR [facility] Parainfluenza Virus 4 PCR Not detected Not detected 09/15/2024 7:39 PM CRIMINOLOGY PROFESSOR [facility] Respiratory Syncytial Virus PCR Not detected Not detected 09/15/2024 7:39 PM CRIMINOLOGY PROFESSOR [facility] Bordetella parapertussis PCR Not detected Not detected 09/15/2024 7:39 PM CRIMINOLOGY PROFESSOR [facility] Bordetella pertussis PCR Not detected Not detected 09/15/2024 7:39 PM CRIMINOLOGY PROFESSOR [facility] Chlamydia pneumoniae PCR Not detected Not detected 09/15/2024 7:39 PM CRIMINOLOGY PROFESSOR [facility] Mycoplasma pneumoniae PCR Not detected Not detected 09/15/2024 7:39 PM CRIMINOLOGY PROFESSOR [facility] Microbiology SPECIMEN FROM NASOPHARYNGEAL STRUCTURE / Unknown Collection / Unknown 09/15/2024 2:13 PM CRIMINOLOGY PROFESSOR 09/15/2024 2:19 PM CRIMINOLOGY PROFESSOR Narrative [facility] - 09/15/2024 7:39 PM CRIMINOLOGY PROFESSOR This nucleic amplification assay has received FDA authorization via the [employer] [place]. Shanel Cast MD LAB - MICROBIOLOGY O RDERABLES [facility] [address] [place], [place] [address], [place] [phone] * (ABNORMAL) CBC W AUTO DIFFERENTIAL (09/15/2024 12:38 PM CRIMINOLOGY PROFESSOR) WBC 11.6(H) 4.0 - 10.7 x10E9/L 09/15/2024 12:44 PM [facility] RBC Count 4.64 3.90 - 5.20 x10E12/L 09/15/2024 12:44 PM [facility] Hemoglobin 13.6 11.9 - 15.8 g/dL 09/15/2024 12:44 PM [facility] Hematocrit 39.7 34.8 - 46.1 % 09/15/2024 12:44 PM [facility] MCV 85.6 80.0 - 98.0 fL 09/15/2024 12:44 PM [facility] MCH 29.3 26.7 - 33.6 pg 09/15/2024 12:44 PM [facility] MCHC 34.3 31.7 - 36.3 g/dL 09/15/2024 12:44 PM [facility] RDW-CV 11.7 11.3 - 14.8 % 09/15/2024 12:44 PM [facility] Platelet Count 307 150 - 420 x10E9/L 09/15/2024 12:44 PM [facility] MPV 8.5 7.8 - 11.4 fL 09/15/2024 12:44 PM [facility] Neutrophil % 68.6 41.0 - 74.0 % 09/15/2024 12:44 PM [facility] Lymphocyte % 23.2 17.0 - 47.0 % 09/15/2024 12:44 PM [facility] Monocyte % 5.9 3.0 - 11.0 % 09/15/2024 12:44 PM [facility] Eosinophil % 1.2 0.0 - 7.0 % 09/15/2024 12:44 PM [facility] Basophil % 0.3 0.0 - 1.6 % 09/15/2024 12:44 PM [facility] Immature Granulocytes % 0.8 0.0 - 1.0 % 09/15/2024 12:44 PM [facility] Neutrophil Absolute 7.94(H) 1.60 - 7.50 x10E9/L 09/15/2024 12:44 PM [facility] Lymphocyte Absolute 2.69 1.00 - 4.40 x10E9/L 09/15/2024 12:44 PM [facility] Monocyte Absolute 0.68 0.15 - 1.00 x10E9/L 09/15/2024 12:44 PM [facility] Eosinophil Absolute 0.14 0.00 - 0.60 x10E9/L 09/15/2024 12:44 PM [facility] Basophil Absolute 0.04 0.00 - 0.13 x10E9/L 09/15/2024 12:44 PM [facility] Blood BLOOD SPECIMEN / Unknown Venipuncture / Unknown 09/15/2024 12:38 PM CRIMINOLOGY PROFESSOR 09/15/2024 12:41 PM [facility] Shanel Cast MD LAB - HEMATOLOGY ORD ERABLES [facility] [address], [place] [id number] * (ABNORMAL) COMPREHENSIVE METABOLIC PANEL (09/15/2024 12:38 PM [facility]) [facility] Glucose 81 70 - 99 mg/dL 09/15/2024 1:03 PM [facility] Sodium 137 136 - 145 mmol/L 09/15/2024 1:03 PM [facility] Potassium 3.8 3.5 - 5.1 mmol/L 09/15/2024 1:03 PM [facility] Chloride 110(H) 98 - 107 mmol/L 09/15/2024 1:03 PM [facility] CO2 18(L) 22 - 29 mmol/L 09/15/2024 1:03 PM CRIMINOLOGY PROFESSOR [facility] Calcium 9.1 8.4 - 10.4 mg/dL 09/15/2024 1:03 PM CRIMINOLOGY PROFESSOR [facility] Anion Gap 9 6 - 16 mmol/L 09/15/2024 1:03 PM CRIMINOLOGY PROFESSOR [facility] BUN 6 5.3 - 18.7 mg/dL 09/15/2024 1:03 PM CRIMINOLOGY PROFESSOR [facility] Creatinine 0.52(L) 0.57 - 1.11 mg/dL 09/15/2024 1:03 PM [facility]INOLOG[facility] PROFESS[facility] Alkaline Phosphatase 42 40 - 150 U/L 09/15/2024 1:03 PM CRIMINOLOG[facility] PROFESS[facility] ALT 14 0 - 55 U/L 09/15/2024 1:03 PM CRIMINOLOGY PROFESSOR [facility] AST 14 5 - 34 U/L 09/15/2024 1:03 PM [facility] Protein Total 6.9 6.4 - 8.3 gm/dL 09/15/2024 1:03 PM CRIMINOLOGY PROFESSOR [facility] Albumin 2.8(L) 3.4 - 5.0 gm/dL 09/15/2024 1:03 PM [facility] Bilirubin Total 0.2 0.2 - 1.2 mg/dL 09/15/2024 1:03 PM CRIMINOLOGY PROFESSOR [facility] eGFR by CKD-EPI >90 >=90 mL/min/1.7 3 m2 09/15/2024 1:03 PM [facility] Blood BLOOD SPECIMEN / Unknown Venipuncture / Unknown 09/15/2024 12:38 PM CRIMINOLOGY PROFESSOR 09/15/2024 12:41 PM CRIMINOLOGY PROFESSOR Shanel Cast MD LAB - CHEMISTRY ROSARIO DURÁN Performing Organization Address City/State/[facility] Co de Phone Number [facility] [address] [place] [address] from Last 3 Months Jennifer Guzman Personal/Family Self 1985
--- OUTSIDE RECORDS SUMMARY | 2024-12-06 08:33 | XMS_ITS | Clinical Summary ---
Author Organization [facility] [email or web address] Address [address] [place] [address] Care Team Providers Care Plastics Fabricator And Assembler Name Role Phone Unavailable Primary Care Provider Unavailabl e Source Comments [facility] [email or web address],non-owned Affiliates and Associated Physician Practices is amultiple site organization consisting of ambulatory clinics and hospital sitesin [place], [place], [place] and [place]. This disclosure is being madepursuant to the Care Everywhere program and may not contain all information available regarding this patient. Last updated 18.[facility] [email or web address] Allergies Active Allergy Reactions Criticality Noted Date Comments Augmentin Nausea and/or Vomiting 08/24/2024 Azithromycin Diarrhea 08/24/2024 Cefprozil Diarrhea 08/24/2024 Methylphenidate TECHNICIAN'S HELPER Dysfunction 08/24/2024 Metoclopramide TECHNICIAN'S HELPER Dysfunction 08/24/2024 Medications * Be aware that [...] on last me nstrual period of 05/24/2024 Encounters Date Type Department Care Team Description 11/09/2024 9:43 AM STOCK GRADER - 11/09/2024 11:59 PM STOCK GRADER Hospital Encounter [facility] [address] [place] [phone] Head, Shanel Chen MD Discharge Disposition: Home or Self Care 10/26/2024 8:15 AM STOCK GRADER - 10/26/2024 11:59 PM STOCK GRADER Hospital Encounter [facility] [address] [place] [phone] Walter Joshi MD Discharge Disposition: Home or Self Care 10/12/2024 9:00 AM STOCK GRADER - 10/12/2024 11:59 PM STOCK GRADER Hospital Encounter [facility] [address] [place] [phone] Lobito Alexander DO BONE CHAR KILN TENDER Discharge Disposition: Home or Self Care 09/28/2024 8:09 AM STOCK GRADER - 09/28/2024 11:59 PM STOCK GRADER Hospital Encounter [facility] [address] [place] [phone] Tamia Rangel MD Discharge Disposition: Home or Self Care 09/15/2024 12:08 PM STOCK GRADER - 09/15/2024 3:18 PM STOCK GRADER Hospital Encounter [facility] [address] [place] [phone] Head, Shanel Chen MD Discharge Disposition: Home or Self Care 09/15/2024 8:56 AM STOCK GRADER - 09/15/2024 12:07 PM STOCK GRADER Hospital Encounter [facility] [address] [place] [address] [phone] Walter Joshi MD Discharge Disposition: Home or Self Care 09/15/2024 8:54 AM STOCK GRADER - 09/15/2024 8:55 AM STOCK GRADER Hospital Encounter [facility] [address] [place], [place] [phone] Walter Joshi MD Discharge Disposition: Home or Self Care 09/15/2024 Travel 09/15/2024 Telephone [facility] [address] [place] [phone] Monica Meléndez, RN Question (Called to see if OB has intial labs are back.) 09/14/2024 Telephone [facility] [address] [place] [phone] Monica Meléndez RN Future Appointment (Called patient about her upcoming appt tomorrow regarding PTD at 32 weeks. ) from Last 3 Months Family History Medical History Relation Name Comments Hypertension Father Anxiety Disorder Mother Hypertension Mother Relation Name Status Comments Father Mother Social History Tobacco Use Types Packs/Day Years [...] and heating? Not hard at all 09/15/2024 [facility] [place] [facility] Occupat ional [facility] - Occupational Stress [...] any time in the past 12 m [facility], were you homeless or living in a prison (including now)? No 09/15/2024 Estimated Date of Delivery Comme nts Yes 02/28/2025 Based on last me nstrual period of 05/24/2024 Sex and Gender Information Value Date Recorded Sex Assigned at Not on file Gender Identity Not on file Sexual Orientation Not on file Last Filed Vital Signs Vital Sign Reading Time Taken Comments Blood Pressure 151/66 09/15/2024 2:50 PM STOCK GRADER Pulse 88 09/15/2024 1:53 PM STOCK GRADER Temperature 37.1 ??C (98.7 ??F) 09/15/2024 12:[address] Respiratory Rate 19 09/15/2024 1:53 PM STOCK GRADER Oxygen Saturation 98% 09/15/2024 1:29 PM STOCK GRADER Inhaled Oxygen Concentration - - Weight 159.2 kg (351 lb) 09/15/2024 9:30 AM STOCK GRADER Height 165.1 cm (5' 5 ) 09/15/2024 9:30 AM STOCK GRADER Body Mass Index 58.41 09/15/2024 9:30 AM STOCK GRADER Plan of Treatment Upcoming Encounters Date Type Department Care Team (Late st Contact Info) Description 12/07/2024 9:45 AM STOCK GRADER Hospital Encounter [facility] [address] [place] [address] Tamia Rangel MD [facility] 4[address] [place] [address] 03/29/2025 Hospital Encounter [facility] [address] [place] [address] Health Maintenance Due Date Last Done Comments PAP SMEAR 1985 HIV SCREENING 2002 HEPATITIS C SCREENING 10/17/2005 DTAP/TDAP/TD VACCINES (1 - Tdap) 2006 HEPATITIS B VACCINE (1 of 3 - 19+ 3-dose series) 2006 COVID-19 VACCINE (2023-2 5 season) 2024 INFLUENZA VACCINE (#1) 2024 9, 07/30/2018, 10/08/2017 DEPRESSION SCREENING 11/10/2024 OB-ONE HOUR GLUCOSE 11/22/2024 OB-TDAP CURRENT 11/29/2024 OB-RHOGAM INJECTION 12/06/2024 ZOSTER VACCINE (1 of 2) 2037 HIB VACCINE Aged Out No longer eligi ble based on patient's age to complete this topic HPV VACCINE Aged Out No longer eligi ble based on patient's age to complete this topic MENINGOCOCCAL (Group B) VACCINE Aged Out No longer eligible b ased on patient's age to complete this topic MENINGOCOCCAL VACCINE Aged Out No timur kosta eligible based on patient's age to complete this topic PNEUMOCOCCAL VACCINE Aged Out No long er eligible based on patient's age to complete this topic Respiratory Syncytial Virus (RSV) Vaccine Pt: or over 60 yrs (No Doses Required) Completed Procedures Procedure Name Priority Date/Time Associated Diagnosis Comments SONOGRAM - COMPLETE Routine 11/09/2024 9 :49 AM STOCK GRADER Antepartum multigravida of advanced maternal age (HCC) Obesity affecting in second trimester, unspecified obesity type (HCC) History of delivery, currently (HCC) 20 weeks gestation of (HCC) Encounter for screening for cervical length (HCC) SONOGRAM - COMPLETE Routine 10/26/2024 8 :17 AM STOCK GRADER Antepartum multigravida of advanced maternal age (HCC) Obesity affecting in second trimester, unspecified obesity type (HCC) History of delivery, currently (HCC) 20 weeks gestation of (HCC) Encounter for screening for cervical length (HCC) SONOGRAM - COMPLETE Routine 10/12/2024 9 :07 AM STOCK GRADER Antepartum multigravida of advanced maternal age (HCC) Obesity affecting in second trimester, unspecified obesity type ([facility]) History of delivery, currently (HCC) 20 weeks gestation of ([facility]) Encounter for screening for cervical length ([facility]) SONOGRAM - TRANSVAGINAL Routine 09/28/2024 8:10 AM STOCK GRADER Antepartum multigravida of advanced maternal age (HCC) Obesity affecting in second trimester, unspecified obesity type (HCC) History of delivery, currently ([facility]) Encounter for screening for cervical length ([facility]) 18 weeks gestation of ([facility]) Encounter for anatomic survey ([facility]) URINE MICROSCOPIC ONLY REFLEX TO CULTURE Routine 09/15/2024 2:23 PM STOCK GRADER Chronic hypertension affecting ([facility]) PROTEIN CREATININE RATIO URINE RANDOM PNL STAT 09/15/2024 2:23 PM STOCK GRADER Chronic hypertension affecting ([facility]) URINALYSIS REFLEX MICROSCOPIC REFLEX CULTURE STAT 09/15/2024 2:23 PM STOCK GRADER Chronic hypertension affecting ([facility]) CULTURE URINE Routine 09/15/2024 2:23 PM STOCK GRADER Chronic hypertension affecting ([facility]) RESPIRATORY PANEL WITH SARS-COV-2 BY PCR ([facility]) Routine 09/15/2024 2:13 PM STOCK GRADER Shortness of breath COMPREHENSIVE METABOLIC PANEL STAT 09/15/2024 12:38 PM STOCK GRADER Shortness of breath CBC W AUTO DIFFERENTIAL STAT 09/15/2024 12:38 PM STOCK GRADER Shortness of breath SONOGRAM - COMPLETE Routine 09/15/2024 8 :56 AM STOCK GRADER Encounter for (NT) nuchal translucency scan ([facility]) History of delivery, currently ([facility]) Antepartum multigravida of advanced maternal age ([facility]) Class 3 severe obesity with body mass index (BMI) of 50.0 to 59.9 in adult, unspecified obesity type, unspecified whether serious comorbidity present ([facility]) from Last 3 Months Results * SONOGRAM - COMPLETE (11/09/2024 9:49 AM STOCK GRADER) Only the most recent of4 resultswithin the time period is included. Linked Results Indication ======== Incomplete Anatomy Screen Left Complex Adnexal Mass History ====== OB History ? 4. Para 1 ? [id number] ? 1. miscarriage ? 2. live 2010. [...] Humerus ?39.8 ?mm ?24w 1d ??42% ? Julio HC / AC ?1.14 ?-/- ? Hadlock Weight Calculation: EFW ?718 ? g ? 63% ? Hadlock EFW (lb,oz) ?1 lb 9 ??oz EFW by ? Hadlock ([id number]) appropriate Growth Overview Exam date ?GA ?BPD [...] Heart / Thorax 4-chamber view. 3-vessel view. 6-pjgeyz-ccyuqce view. Aortic arch view. Great vessels. Spine [...] time as well. Coding ====== Procedures ? 90284: US Preg Uterus Follow Up Runnit PACS Anatomical Region Laterality Modality Other 11/09/2024 9:49 AM STOCK GRADER Viktor Rodriguez MD [facility] ORDERABLES * SONOGRAM - TRANSVAGINAL (09/28/2024 8:10 AM STOCK GRADER) Linked Results Indication ======== G1: SAB G2: 32 wk 1956 gm, PROM/PTL G3: SAB G4: Current , AMA 37 low-risk cf-DNA, Class III obesity (BMI 56) History ====== OB History ? 4. Para 1 ? [id number] Lab Tests Test ? Date ? Result [...] screening is recommended Coding ====== Procedures ? 78410: US Uterus Limited ? 44715: US Preg Uterus Transvaginal [facility] Dizzion PACS Anatomical Region Laterality Modality Other 09/28/2024 8:10 AM STOCK GRADER Viktor Rodriguez MD [facility] ORDERABLES * URINE MICROSCOPIC ONLY REFLEX TO CULTURE (09/15/2024 2:23 PM STOCK GRADER) Reflex Status Culture to follow 09/15/2024 2:51 PM STOCK GRADER [facility] RBC UA 3-5 0 - 5 # /hpf 09/15/2024 2:51 PM STOCK GRADER [facility] WBC UA 0-5 0 - 5 # /hpf 09/15/2024 2:51 PM STOCK GRADER [facility] Bacteria UA None Seen None Seen 09/15/2024 2:51 PM STOCK GRADER [facility] Squamous Epithelial Cells 3-5 0 - 5 /hpf 09/15/2024 2:51 PM STOCK GRADER [facility] Mucus UA 1+ /LPF 09/15/2024 2:51 PM STOCK GRADER [facility] Urine URINE SPECIMEN OBTAINED BY CLEAN CATCH PROCEDURE / Unknown Collection / Unknown 09/15/2024 2:23 PM STOCK GRADER 09/15/2024 2:30 PM STOCK GRADER Narrative [facility] - 09/15/2024 2:51 PM STOCK GRADER Shanel Cast MD LAB - URINALYSIS ORD ERABLES [facility] [address] [place] [address] * (ABNORMAL) URINALYSIS REFLEX MICROSCOPIC REFLEX CULTURE (09/15/2024 2:23 PM STOCK GRADER) Color UA Yellow Straw, Yellow 09/15/2024 2:47 PM STOCK GRADER [facility] Clarity UA Slt Cloudy(A) Clear 09/15/2024 2:47 PM STOCK GRADER [facility] Glucose UA Negative Negative 09/15/2024 2:47 PM STOCK GRADER [facility] Bilirubin UA Negative Negative 09/15/2024 2:47 PM STOCK GRADER [facility] Ketone UA 1+(A) Negative 09/15/2024 2:47 PM STOCK GRADER [facility] Specific [place] UA 1.029 1.005 - 1.030 09/15/2024 2:47 PM STOCK GRADER [facility] Blood UA Negative Negative 09/15/2024 2:47 PM STOCK GRADER [facility] pH UA 5.0 5.0 - 8.0 pH 09/15/2024 2:47 PM STOCK GRADER [facility] Protein UA 1+(A) Negative 09/15/2024 2:47 PM STOCK GRADER [facility] Urobilinogen UA Negative Negative mg/dL 09/15/2024 2:47 PM STOCK GRADER [facility] Nitrite UA Negative Negative 09/15/2024 2:47 PM STOCK GRADER [facility] Leukocyte UA Trace(A) Negative 09/15/2024 2:47 PM [facility] Urine Microscopy Urine microscopy to follow 09/15/2024 2:47 PM [facility] Reflex Status Culture to follow 09/15/2024 2:47 PM [facility] Urine URINE SPECIMEN OBTAINED BY CLEAN CATCH PROCEDURE / Unknown Collection / Unknown 09/15/2024 2:23 PM STOCK GRADER 09/15/2024 2:30 PM STOCK GRADER Narrative [facility] - 09/15/2024 2:47 PM STOCK GRADER Ascorbic Acid can cause false negative urine strip tests for blood, glucose, nitrite, and bilirubin. Shanel Cast MD LAB - URINALYSIS ORD ERABLES [facility] [address] [place], [place] [id number] * CULTURE URINE (09/15/2024 2:23 PM STOCK GRADER) Culture Urine <10,000 CFU/mL urogenital evgeny REYES 09/16/2024 9:[address] [facility] Urine URINE SPECIMEN OBTAINED BY CLEAN CATCH PROCEDURE / Unknown Collection / Unknown 09/15/2024 2:23 PM STOCK GRADER 09/15/2024 2:30 PM STOCK GRADER Narrative Authorizing Provider Result Rebeca Cast MD LAB - MICROBIOLOGY O RDERABLES [facility] [address] [place] [address], [facility] [phone] * (ABNORMAL) PROTEIN CREATININE RATIO URINE RANDOM PNL (09/15/2024 2:23 PM STOCK GRADER) Pathologist [facility] Protein Urine 16.6(H) <11.9 mg/dL 09/15/2024 3:02 PM STOCK GRADER [facility] Creatinine Urine 194.48 mg/dL 09/15/2024 3:02 PM STOCK GRADER [facility] Protein/Creatin ine Ratio Urine 0.09 09/15/2024 3:02 PM STOCK GRADER [facility] Urine URINE SPECIMEN OBTAINED BY CLEAN CATCH PROCEDURE / Unknown Collection / Unknown 09/15/2024 2:23 PM STOCK GRADER 09/15/2024 2:29 PM STOCK GRADER Narrative Authorizing Provider Result Rebeac Cast MD LAB - URINE CHEMISTR Y ORDERABLES [facility] [address] [place] [address] * RESPIRATORY PANEL WITH SARS-COV-2 BY PCR ([facility]) (09/15/2024 2:13 PM STOCK GRADER) Pathologist [facility] Adenovirus PCR Not detected Not detected 09/15/2024 7:39 PM [facility] Coronavirus 229E PCR Not detected Not detected 09/15/2024 7:[address] [facility] Coronavirus HKU1 PCR Not detected Not detected 09/15/2024 7:[address] [facility] Coronavirus NL63 PCR Not detected Not detected 09/15/2024 7:39 PM STOCK GRADER [facility] Coronavirus OC43 PCR Not detected Not detected 09/15/2024 7:39 PM [facility] COVID-19 PCR Not detected Not detected 09/15/2024 7:39 PM STOCK GRADER [facility] Human Metapneumovirus PCR Not detected Not detected 09/15/2024 7:[address] [facility] Human Rhinovirus/Enterov irus PCR Not detected Not detected 09/15/2024 7:39 PM STOCK GRADER [facility] Influenza A PCR Not detected Not detected 09/15/2024 7:39 PM STOCK GRADER [facility] Influenza B PCR Not detected Not detected 09/15/2024 7:[address] [facility] Parainfluenza Virus 1 PCR Not detected Not detected 09/15/2024 7:39 PM STOCK GRADER [facility] Parainfluenza Virus 2 PCR Not detected Not detected 09/15/2024 7:39 PM STOCK GRADER [facility] Parainfluenza Virus 3 PCR Not detected Not detected 09/15/2024 7:39 PM STOCK GRADER [facility] Parainfluenza Virus 4 PCR Not detected Not detected 09/15/2024 7:[address] [facility] Respiratory Syncytial Virus PCR Not detected Not detected 09/15/2024 7:[address] [facility] Bordetella parapertussis PCR Not detected Not detected 09/15/2024 7:[address] [facility] Bordetella pertussis PCR Not detected Not detected 09/15/2024 7:[address] [facility] Chlamydia pneumoniae PCR Not detected Not detected 09/15/2024 7:39 PM STOCK GRADER [facility] Mycoplasma pneumoniae PCR Not detected Not detected 09/15/2024 7:[address] [facility] Microbiology SPECIMEN FROM NASOPHARYNGEAL STRUCTURE / Unknown Collection / Unknown 09/15/2024 2:13 PM STOCK GRADER 09/15/2024 2:19 PM STOCK GRADER Narrative [facility] - 09/15/2024 7:39 PM STOCK GRADER This nucleic amplification assay has received FDA authorization via the [employer]. Shanel Cast MD LAB - MICROBIOLOGY O RDERABLES [facility] [address] [place] [address], [facility] [phone] * (ABNORMAL) CBC W AUTO DIFFERENTIAL (09/15/2024 12:38 PM STOCK GRADER) WBC 11.6(H) 4.0 - 10.7 x10E9/L 09/15/2024 12:44 PM STOCK GRADER [facility] RBC Count 4.64 3.90 - 5.20 x10E12/L 09/15/2024 12:44 PM [facility] Hemoglobin 13.6 11.9 - 15.8 g/dL 09/15/2024 12:44 PM [facility] Hematocrit 39.7 34.8 - 46.1 % 09/15/2024 12:44 PM [facility] MCV 85.6 80.0 - 98.0 fL 09/15/2024 12:44 PM [facility] MCH 29.3 26.7 - 33.6 pg 09/15/2024 12:44 PM [facility] MCHC 34.3 31.7 - 36.3 g/dL 09/15/2024 12:44 PM [facility] RDW-CV 11.7 11.3 - 14.8 % 09/15/2024 12:44 PM [facility] Platelet Count 307 150 - 420 x10E9/L 09/15/2024 12:44 PM [facility] MPV 8.5 7.8 - 11.4 fL 09/15/2024 12:44 PM [facility] Neutrophil % 68.6 41.0 - 74.0 % 09/15/2024 12:44 PM [facility] Lymphocyte % 23.2 17.0 - 47.0 % 09/15/2024 12:44 PM [facility] Monocyte % 5.9 3.0 - 11.0 % 09/15/2024 12:44 PM [facility] Eosinophil % 1.2 0.0 - 7.0 % 09/15/2024 12:44 PM [facility] Basophil % 0.3 0.0 - 1.6 % 09/15/2024 12:44 PM [facility] Immature Granulocytes % 0.8 0.0 - 1.0 % 09/15/2024 12:44 PM [facility] Neutrophil Absolute 7.94(H) 1.60 - 7.50 x10E9/L 09/15/2024 12:44 PM [facility] Lymphocyte Absolute 2.69 1.00 - 4.40 x10E9/L 09/15/2024 12:44 PM [facility] Monocyte Absolute 0.68 0.15 - 1.00 x10E9/L 09/15/2024 12:44 PM [facility] Eosinophil Absolute 0.14 0.00 - 0.60 x10E9/L 09/15/2024 12:44 PM [facility] Basophil Absolute 0.04 0.00 - 0.13 x10E9/L 09/15/2024 12:44 PM [facility] Blood BLOOD SPECIMEN / Unknown Venipuncture / Unknown 09/15/2024 12:38 PM STOCK GRADER 09/15/2024 12:41 PM [facility] Shanel Cast MD LAB - HEMATOLOGY ORD ERABLES [facility] [address] [place], [place] [id number] * (ABNORMAL) COMPREHENSIVE METABOLIC PANEL (09/15/2024 12:38 PM [facility]) Glucose 81 70 - 99 mg/dL 09/15/2024 1:03 PM [facility] Sodium 137 136 - 145 mmol/L 09/15/2024 1:03 PM [facility] Potassium 3.8 3.5 - 5.1 mmol/L 09/15/2024 1:03 PM [facility] Chloride 110(H) 98 - 107 mmol/L 09/15/2024 1:03 PM [facility] CO2 18(L) 22 - 29 mmol/L 09/15/2024 1:03 PM [facility] Calcium 9.1 8.4 - 10.4 mg/dL 09/15/2024 1:03 PM [facility] Anion Gap 9 6 - 16 mmol/L 09/15/2024 1:03 PM [facility] BUN 6 5.3 - 18.7 mg/dL 09/15/2024 1:03 PM [facility] Creatinine 0.52(L) 0.57 - 1.11 mg/dL 09/15/2024 1:03 PM [facility] Alkaline Phosphatase 42 40 - 150 U/L 09/15/2024 1:03 PM [facility] ALT 14 0 - 55 U/L 09/15/2024 1:03 PM [facility] AST 14 5 - 34 U/L 09/15/2024 1:03 PM [facility] Protein Total 6.9 6.4 - 8.3 gm/dL 09/15/2024 1:03 PM STOCK GRADER [facility] Albumin 2.8(L) 3.4 - 5.0 gm/dL 09/15/2024 1:03 PM STOCK GRADER [facility] Bilirubin Total 0.2 0.2 - 1.2 mg/dL 09/15/2024 1:03 PM STOCK GRADER [facility] eGFR by CKD-EPI >90 >=90 mL/min/1.7 3 m2 09/15/2024 1:03 PM STOCK GRADER [facility] Blood BLOOD SPECIMEN / Unknown Venipuncture / Unknown 09/15/2024 12:38 PM STOCK GRADER 09/15/2024 12:41 PM STOCK GRADER Shanel Cast MD LAB - CHEMISTRY ROSARIO DURÁN Performing Organization Address City/State/[facility] Co de Phone Number [facility] [address] [place] [address] from Last 3 Months Jennifer Guzman Personal/Family Self 1985
--- OUTSIDE RECORDS SUMMARY | 2024-12-06 08:33 | XMS_ITS | Patient Health Summary ---
Author Organization [facility] [employer] Address [address] [place] [address] Care Team Providers Care Scalp Treatment Operator Name Role Phone Unavailable Primary Care Provider Unavailabl e Note from [facility],non-owned Affiliates and Associated Physician Practices is amultiple site organization consisting of ambulatory clinics and hospital sitesin [place], [place], [place] and [place]. This disclosure is being madepursuant to the Care Everywhere program and may not contain all information available regarding this patient. Last updated 18.[facility] [employer] Allergies * Augmentin(Nausea and/or Vomiting) * Azithromycin(Diarrhea) * Cefprozil(Diarrhea) * Methylphenidate(CROP DUSTER Dysfunction) * Metoclopramide(CROP DUSTER Dysfunction) Medications * Be aware that medications may not be up to date on this document. Alwaysverify current medications with the patient. * Vit-Fe Fumarate-FA ( vitamin) 28-0.8 MG tablet Take 1 (one) tablet by mouth once daily * aspirin EC (Ecotrin) 81 MG tablet Take 2 (two) tablets by mouth once daily * guaiFENesin ER 12hr (Mucinex) 600 MG tablet Take 1 (one) tablet by mouth every 12 hours * famotidine (Pepcid) 20 MG tablet(Started 09/15/2024) Take 1 (one) tablet by mouth every 12 hours 2 refills by 09/15/2025 * budesonide-formoterol (Symbicort) 80-4.5 MCG/ACT inhaler(Started 09/15/2024) Inhale 2 (two) puffs by mouth 2 times daily 1 refill by 09/15/2025 * NIFEdipine CR osmotic 24hr (Procardia-XL) 30 MG tablet(Started 09/15/2024) Take 1 (one) tablet by mouth once daily 2 refills by 09/15/2025 Active Problems Problem Noted Date Diagnosed Date Shortness of breath 09/15/2024 Social History Tobacco Use Types Packs/Day Years [...] and heating? Not hard at all 09/15/2024 [facility] Occupat ional Health - Occupational Stress [...] any time in the past 12 m [facility], were you homeless or living in a intermediate (including now)? No 09/15/2024 Estimated Date of Delivery Comme nts Yes 02/28/2025 Based on last me nstrual period of 05/24/2024 Sex and Gender Information Value Date Recorded Sex Assigned at Not on file Gender Identity Not on file Sexual Orientation Not on file Last Filed Vital Signs Vital Sign Reading Time Taken Comments Blood Pressure 151/66 09/15/2024 2:50 PM FACILITY ENVIRONMENTAL TECHNICIAN Pulse 88 09/15/2024 1:53 PM FACILITY ENVIRONMENTAL TECHNICIAN Temperature 37.1 ??C (98.7 ??F) 09/15/2024 12:[address] Respiratory Rate 19 09/15/2024 1:53 PM FACILITY ENVIRONMENTAL TECHNICIAN Oxygen Saturation 98% 09/15/2024 1:29 PM FACILITY ENVIRONMENTAL TECHNICIAN Inhaled Oxygen Concentration - - Weight 159.2 kg (351 lb) 09/15/2024 9:30 AM FACILITY ENVIRONMENTAL TECHNICIAN Height 165.1 cm (5' 5 ) 09/15/2024 9:30 AM FACILITY ENVIRONMENTAL TECHNICIAN Body Mass Index 58.41 09/15/2024 9:30 AM FACILITY ENVIRONMENTAL TECHNICIAN Procedures * SONOGRAM - COMPLETE(Performed 11/09/2024) Performed for Antepartum multigravida of advanced maternal age ([facility]), Obesity affecting in second trimester, unspecified obesity type ([facility]), History of delivery, currently ([facility]), 20 weeks gestation of ([facility]), Encounter for screening for cervical length ([facility]) * SONOGRAM - COMPLETE(Performed 10/26/2024) Performed for Antepartum multigravida of advanced maternal age (HCC), Obesity affecting in second trimester, unspecified obesity type ([facility]), History of delivery, currently ([facility]), 20 weeks gestation of ([facility]), Encounter for screening for cervical length ([facility]) * SONOGRAM - COMPLETE(Performed 10/12/2024) Performed for Antepartum multigravida of advanced maternal age (HCC), Obesity affecting in second trimester, unspecified obesity type ([facility]), History of delivery, currently ([facility]), 20 weeks gestation of ([facility]), Encounter for screening for cervical length ([facility]) * SONOGRAM - TRANSVAGINAL(Performed 09/28/2024) Performed for Antepartum multigravida of advanced maternal age (HCC), Obesity affecting in second trimester, unspecified obesity type ([facility]), History of delivery, currently ([facility]), Encounter for screening for cervical length ([facility]), 18 weeks gestation of ([facility]), Encounter for anatomic survey ([facility]) * URINE MICROSCOPIC ONLY REFLEX TO CULTURE(Performed 09/15/2024) Performed for Chronic hypertension affecting (HCC) * PROTEIN CREATININE RATIO URINE RANDOM PNL(Performed 09/15/2024) Performed for Chronic hypertension affecting (HCC) * URINALYSIS REFLEX MICROSCOPIC REFLEX CULTURE(Performed 09/15/2024) Performed for Chronic hypertension affecting (HCC) * CULTURE URINE(Performed 09/15/2024) Performed for Chronic hypertension affecting (HCC) * RESPIRATORY PANEL WITH SARS-COV-2 BY PCR ([facility])(Performed 09/15/2024) Performed for Shortness of breath * COMPREHENSIVE METABOLIC PANEL(Performed 09/15/2024) Performed for Shortness of breath * CBC W AUTO DIFFERENTIAL(Performed 09/15/2024) Performed for Shortness of breath * SONOGRAM - COMPLETE(Performed 09/15/2024) Performed for Encounter for (NT) nuchal translucency scan (HCC), History of delivery, currently (HCC), Antepartum multigravida of advanced maternal age (HCC), Class 3 severe obesity with body mass index (BMI) of 50.0 to 59.9 in adult, unspecified obesity type, unspecified whether serious comorbidity present (HCC) * SONOGRAM - COMPLETE(Performed 08/27/2024) Performed for Encounter for (NT) nuchal translucency scan (HCC), History of delivery, currently (HCC), Antepartum multigravida of advanced maternal age (HCC), Class 3 severe obesity with body mass index (BMI) of 50.0 to 59.9 in adult, unspecified obesity type, unspecified whether serious comorbidity present (HCC) Results * SONOGRAM - COMPLETE (11/09/2024 9:49 AM FACILITY ENVIRONMENTAL TECHNICIAN) Only the most recent of5 resultswithin the time period is included. Linked Results Indication ======== Incomplete Anatomy Screen Left Complex Adnexal Mass History ====== OB History ? 4. Para 1 ? [id number] ? 1. miscarriage ? 2. live 2010. [...] lb 9 ??oz EFW by ? Hadlock ([id number]) appropriate Growth Overview Exam date ?GA ?BPD [...] Heart / Thorax 4-chamber view. 3-vessel view. 0-llfsyu-zksodih view. Aortic arch view. Great vessels. Spine [...] time as well. Coding ====== Procedures ? 80846: US Preg Uterus Follow Up [email or web address] PACS Anatomical Region Laterality Modality Other 11/09/2024 9:49 AM FACILITY ENVIRONMENTAL TECHNICIAN Viktor Rodriguez MD [facility] ORDERABLES * SONOGRAM - TRANSVAGINAL (09/28/2024 8:10 AM FACILITY ENVIRONMENTAL TECHNICIAN) Linked Results Indication ======== G1: SAB G2: 32 wk 1956 gm, PROM/PTL G3: SAB G4: Current , AMA 37 low-risk cf-DNA, Class III obesity (BMI 56) History ====== OB History ? 4. Para 1 ? [id number] Lab Tests Test ? Date ? Result [...] screening is recommended Coding ====== Procedures ? 91149: US Uterus Limited ? 13460: US Preg Uterus Transvaginal [employer] PACS Anatomical Region Laterality Modality Other 09/28/2024 8:10 AM FACILITY ENVIRONMENTAL TECHNICIAN Viktor Rodriguez MD [facility] ORDERABLES * URINE MICROSCOPIC ONLY REFLEX TO CULTURE (09/15/2024 2:23 PM FACILITY ENVIRONMENTAL TECHNICIAN) Reflex Status Culture to follow 09/15/2024 2:51 PM FACILITY ENVIRONMENTAL TECHNICIAN [facility] RBC UA 3-5 0 - 5 # /hpf 09/15/2024 2:51 PM FACILITY ENVIRONMENTAL TECHNICIAN [facility] WBC UA 0-5 0 - 5 # /hpf 09/15/2024 2:51 PM FACILITY ENVIRONMENTAL TECHNICIAN [facility] Bacteria UA None Seen None Seen 09/15/2024 2:51 PM FACILITY ENVIRONMENTAL TECHNICIAN [facility] Squamous Epithelial Cells 3-5 0 - 5 /hpf 09/15/2024 2:51 PM FACILITY ENVIRONMENTAL TECHNICIAN [facility] Mucus UA 1+ /LPF 09/15/2024 2:51 PM FACILITY ENVIRONMENTAL TECHNICIAN [facility] Urine URINE SPECIMEN OBTAINED BY CLEAN CATCH PROCEDURE / Unknown Collection / Unknown 09/15/2024 2:23 PM FACILITY ENVIRONMENTAL TECHNICIAN 09/15/2024 2:30 PM FACILITY ENVIRONMENTAL TECHNICIAN Narrative [facility] - 09/15/2024 2:51 PM FACILITY ENVIRONMENTAL TECHNICIAN Shanel Cast MD LAB - URINALYSIS ORD ERABLES [facility] [address] [place] [address] * (ABNORMAL) URINALYSIS REFLEX MICROSCOPIC REFLEX CULTURE (09/15/2024 2:23 PM FACILITY ENVIRONMENTAL TECHNICIAN) Color UA Yellow Straw, Yellow 09/15/2024 2:47 PM FACILITY ENVIRONMENTAL TECHNICIAN [facility] Clarity UA Slt Cloudy(A) Clear 09/15/2024 2:47 PM FACILITY ENVIRONMENTAL TECHNICIAN [facility] Glucose UA Negative Negative 09/15/2024 2:47 PM FACILITY ENVIRONMENTAL TECHNICIAN [facility] Bilirubin UA Negative Negative 09/15/2024 2:47 PM FACILITY ENVIRONMENTAL TECHNICIAN [facility] Ketone UA 1+(A) Negative 09/15/2024 2:47 PM FACILITY ENVIRONMENTAL TECHNICIAN [facility] Specific [place] UA 1.029 1.005 - 1.030 09/15/2024 2:47 PM FACILITY ENVIRONMENTAL TECHNICIAN [facility] Blood UA Negative Negative 09/15/2024 2:47 PM FACILITY ENVIRONMENTAL TECHNICIAN [facility] pH UA 5.0 5.0 - 8.0 pH 09/15/2024 2:47 PM FACILITY ENVIRONMENTAL TECHNICIAN [facility] Protein UA 1+(A) Negative 09/15/2024 2:47 PM FACILITY ENVIRONMENTAL TECHNICIAN [facility] Urobilinogen UA Negative Negative mg/dL 09/15/2024 2:47 PM FACILITY ENVIRONMENTAL TECHNICIAN [facility] Nitrite UA Negative Negative 09/15/2024 2:47 PM FACILITY ENVIRONMENTAL TECHNICIAN [facility] Leukocyte UA Trace(A) Negative 09/15/2024 2:47 PM FACILITY ENVIRONMENTAL TECHNICIAN [facility] Urine Microscopy Urine microscopy to follow 09/15/2024 2:47 PM FACILITY ENVIRONMENTAL TECHNICIAN [facility] Reflex Status Culture to follow 09/15/2024 2:47 PM FACILITY ENVIRONMENTAL TECHNICIAN [facility] Urine URINE SPECIMEN OBTAINED BY CLEAN CATCH PROCEDURE / Unknown Collection / Unknown 09/15/2024 2:23 PM FACILITY ENVIRONMENTAL TECHNICIAN 09/15/2024 2:30 PM FACILITY ENVIRONMENTAL TECHNICIAN Narrative [facility] - 09/15/2024 2:47 PM FACILITY ENVIRONMENTAL TECHNICIAN Ascorbic Acid can cause false negative urine strip tests for blood, glucose, nitrite, and bilirubin. Shanel Cast MD LAB - URINALYSIS ORD ERABLES Performing Organization Address City/[facility]/ZIP Co de Phone Number [facility] [address] [place] [address] * CULTURE URINE (09/15/2024 2:23 PM FACILITY ENVIRONMENTAL TECHNICIAN) Culture Urine <10,000 CFU/mL urogenital evgeny REEYS 09/16/2024 9:43 PM FACILITY ENVIRONMENTAL TECHNICIAN [facility] Urine URINE SPECIMEN OBTAINED BY CLEAN CATCH PROCEDURE / Unknown Collection / Unknown 09/15/2024 2:23 PM FACILITY ENVIRONMENTAL TECHNICIAN 09/15/2024 2:30 PM FACILITY ENVIRONMENTAL TECHNICIAN Narrative Authorizing Provider Result Rebeca Cast MD LAB - MICROBIOLOGY O RDERABLES [facility] [address] [phone] * (ABNORMAL) PROTEIN CREATININE RATIO URINE RANDOM PNL (09/15/2024 2:23 PM FACILITY ENVIRONMENTAL TECHNICIAN) Protein Urine 16.6(H) <11.9 mg/dL 09/15/2024 3:02 PM [facility] Creatinine Urine 194.48 mg/dL 09/15/2024 3:02 PM [facility] Protein/Creatin ine Ratio Urine 0.09 09/15/2024 3:02 PM FACILITY ENVIRONMENTAL TECHNICIAN [facility] Urine URINE SPECIMEN OBTAINED BY CLEAN CATCH PROCEDURE / Unknown Collection / Unknown 09/15/2024 2:23 PM FACILITY ENVIRONMENTAL TECHNICIAN 09/15/2024 2:29 PM FACILITY ENVIRONMENTAL TECHNICIAN Shanel Chne Head LAB - URINE CHEMISTR Y ORDERABLES [facility] [address] [id number] * RESPIRATORY PANEL WITH SARS-COV-2 BY PCR ([facility]) (09/15/2024 2:13 PM FACILITY ENVIRONMENTAL TECHNICIAN) Adenovirus PCR Not detected Not detected 09/15/2024 7:39 PM FACILITY ENVIRONMENTAL TECHNICIAN [facility] Coronavirus 229E PCR Not detected Not detected 09/15/2024 7:39 PM FACILITY ENVIRONMENTAL TECHNICIAN [facility] Coronavirus HKU1 PCR Not detected Not detected 09/15/2024 7:39 PM FACILITY ENVIRONMENTAL TECHNICIAN [facility] Coronavirus NL63 PCR Not detected Not detected 09/15/2024 7:39 PM FACILITY ENVIRONMENTAL TECHNICIAN [facility] Coronavirus OC43 PCR Not detected Not detected 09/15/2024 7:39 PM FACILITY ENVIRONMENTAL TECHNICIAN [facility] COVID-19 PCR Not detected Not detected 09/15/2024 7:39 PM FACILITY ENVIRONMENTAL TECHNICIAN [facility] Human Metapneumovirus PCR Not detected Not detected 09/15/2024 7:39 PM FACILITY ENVIRONMENTAL TECHNICIAN [facility] Human Rhinovirus/Enterov irus PCR Not detected Not detected 09/15/2024 7:39 PM FACILITY ENVIRONMENTAL TECHNICIAN [facility] Influenza A PCR Not detected Not detected 09/15/2024 7:39 PM FACILITY ENVIRONMENTAL TECHNICIAN [facility] Influenza B PCR Not detected Not detected 09/15/2024 7:39 PM FACILITY ENVIRONMENTAL TECHNICIAN [facility] Parainfluenza Virus 1 PCR Not detected Not detected 09/15/2024 7:39 PM FACILITY ENVIRONMENTAL TECHNICIAN [facility] Parainfluenza Virus 2 PCR Not detected Not detected 09/15/2024 7:39 PM FACILITY ENVIRONMENTAL TECHNICIAN [facility] Parainfluenza Virus 3 PCR Not detected Not detected 09/15/2024 7:39 PM FACILITY ENVIRONMENTAL TECHNICIAN [facility] Parainfluenza Virus 4 PCR Not detected Not detected 09/15/2024 7:39 PM FACILITY ENVIRONMENTAL TECHNICIAN [facility] Respiratory Syncytial Virus PCR Not detected Not detected 09/15/2024 7:39 PM FACILITY ENVIRONMENTAL TECHNICIAN [facility] Bordetella parapertussis PCR Not detected Not detected 09/15/2024 7:39 PM FACILITY ENVIRONMENTAL TECHNICIAN [facility] Bordetella pertussis PCR Not detected Not detected 09/15/2024 7:39 PM FACILITY ENVIRONMENTAL TECHNICIAN [facility] Chlamydia pneumoniae PCR Not detected Not detected 09/15/2024 7:39 PM FACILITY ENVIRONMENTAL TECHNICIAN [facility] Mycoplasma pneumoniae PCR Not detected Not detected 09/15/2024 7:39 PM [facility] Microbiology SPECIMEN FROM NASOPHARYNGEAL STRUCTURE / Unknown Collection / Unknown 09/15/2024 2:13 PM FACILITY ENVIRONMENTAL TECHNICIAN 09/15/2024 2:19 PM FACILITY ENVIRONMENTAL TECHNICIAN Narrative [facility] - 09/15/2024 7:39 PM FACILITY ENVIRONMENTAL TECHNICIAN This nucleic amplification assay has received FDA authorization via the [place] [employer]. Shanel Chen Head LAB - MICROBIOLOGY O R[place] [facility] [address] [place] [address], [facility] [phone] * (ABNORMAL) CBC W AUTO DIFFERENTIAL (09/15/2024 12:38 PM FACILITY ENVIRONMENTAL TECHNICIAN) WBC 11.6(H) 4.0 - 10.7 x10E9/L 09/15/2024 12:44 PM FACILITY ENVIRONMENTAL TECHNICIAN [facility] RBC Count 4.64 3.90 - 5.20 x10E12/L 09/15/2024 12:44 PM FACILITY ENVIRONMENTAL TECHNICIAN [facility] Hemoglobin 13.6 11.9 - 15.8 g/dL 09/15/2024 12:44 PM FACILITY ENVIRONMENTAL TECHNICIAN [facility] Hematocrit 39.7 34.8 - 46.1 % 09/15/2024 12:44 PM FACILITY ENVIRONMENTAL TECHNICIAN [facility] MCV 85.6 80.0 - 98.0 fL 09/15/2024 12:44 PM FACILITY ENVIRONMENTAL TECHNICIAN [facility] MCH 29.3 26.7 - 33.6 pg 09/15/2024 12:44 PM FACILITY ENVIRONMENTAL TECHNICIAN [facility] MCHC 34.3 31.7 - 36.3 g/dL 09/15/2024 12:44 PM FACILITY ENVIRONMENTAL TECHNICIAN [facility] RDW-CV 11.7 11.3 - 14.8 % 09/15/2024 12:44 PM [facility] Platelet Count 307 150 - 420 x10E9/L 09/15/2024 12:44 PM [facility] MPV 8.5 7.8 - 11.4 fL 09/15/2024 12:44 PM [facility] Neutrophil % 68.6 41.0 - 74.0 % 09/15/2024 12:44 PM [facility] Lymphocyte % 23.2 17.0 - 47.0 % 09/15/2024 12:44 PM [facility] Monocyte % 5.9 3.0 - 11.0 % 09/15/2024 12:44 PM [facility] Eosinophil % 1.2 0.0 - 7.0 % 09/15/2024 12:44 PM [facility] Basophil % 0.3 0.0 - 1.6 % 09/15/2024 12:44 PM [facility] Immature Granulocytes % 0.8 0.0 - 1.0 % 09/15/2024 12:44 PM [facility] Neutrophil Absolute 7.94(H) 1.60 - 7.50 x10E9/L 09/15/2024 12:44 PM [facility] Lymphocyte Absolute 2.69 1.00 - 4.40 x10E9/L 09/15/2024 12:44 PM [facility] Monocyte Absolute 0.68 0.15 - 1.00 x10E9/L 09/15/2024 12:44 PM [facility] Eosinophil Absolute 0.14 0.00 - 0.60 x10E9/L 09/15/2024 12:44 PM [facility] Basophil Absolute 0.04 0.00 - 0.13 x10E9/L 09/15/2024 12:44 PM [facility] Blood BLOOD SPECIMEN / Unknown Venipuncture / Unknown 09/15/2024 12:38 PM FACILITY ENVIRONMENTAL TECHNICIAN 09/15/2024 12:41 PM [facility] Shanel Cast MD LAB - HEMATOLOGY ORD ERABLES [facility] [address] [place] [address] * (ABNORMAL) COMPREHENSIVE METABOLIC PANEL (09/15/2024 12:38 PM [facility]) [facility] Glucose 81 70 - 99 mg/dL 09/15/2024 1:03 PM [facility] Sodium 137 136 - 145 mmol/L 09/15/2024 1:03 PM [facility] Potassium 3.8 3.5 - 5.1 mmol/L 09/15/2024 1:03 PM [facility] Chloride 110(H) 98 - 107 mmol/L 09/15/2024 1:03 PM [facility] CO2 18(L) 22 - 29 mmol/L 09/15/2024 1:03 PM [facility] Calcium 9.1 8.4 - 10.4 mg/dL 09/15/2024 1:03 PM [facility] Anion Gap 9 6 - 16 mmol/L 09/15/2024 1:03 PM [facility] BUN 6 5.3 - 18.7 mg/dL 09/15/2024 1:03 PM [facility] Creatinine 0.52(L) 0.57 - 1.11 mg/dL 09/15/2024 1:03 PM [facility] Alkaline Phosphatase 42 40 - 150 U/L 09/15/2024 1:03 PM [facility] ALT 14 0 - 55 U/L 09/15/2024 1:03 PM [facility] AST 14 5 - 34 U/L 09/15/2024 1:03 PM [facility] Protein Total 6.9 6.4 - 8.3 gm/dL 09/15/2024 1:03 PM [facility] Albumin 2.8(L) 3.4 - 5.0 gm/dL 09/15/2024 1:03 PM [facility] Bilirubin Total 0.2 0.2 - 1.2 mg/dL 09/15/2024 1:03 PM [facility] eGFR by CKD-EPI >90 >=90 mL/min/1.7 3 m2 09/15/2024 1:03 PM [facility] Blood BLOOD SPECIMEN / Unknown Venipuncture / Unknown 09/15/2024 12:38 PM [facility] 09/15/2024 12:41 PM FACILITY ENVIRONMENTAL TECHNICIAN Shanel Chen Head LAB - CHEMISTRY ROSARIO DURÁN Performing Organization Address City/State/[facility] Co de Phone Number [facility] [address] [place] [address]
[2024-12-06 09:08] LABS: Basophils Absolute Auto 0.1 K/mm3 (0.0-0.1); Basophils Percent Auto 0.5 % (0.2-1.2); Eosinophils Absolute Auto 0.2 K/mm3 (0-0.3); Eosinophils Percent Auto 1.3 % (0-4.4); Hematocrit 41.4 % (37.0-47.0); Hemoglobin 13.8 g/dL (12.0-15.0); Immature Granulocyte Absolute 0.15 K/mm3 (0.00-0.031); Immature Granulocyte Percent A 1.1 % (0-0.5); Lymphocytes Absolute Auto 2.04 K/mm3 (0.9-3.2); Lymphocytes Percent Auto 14.8 % (18.3-44.2); Mean Corpuscular HGB Conc 33.3 g/dl (32-36); Mean Corpuscular Hemoglobin 29.9 pg (26-34); Mean Corpuscular Volume 89.6 fl (80-100); Monocytes Absolute Auto 0.7 K/mm3 (0.1-0.6); Monocytes Percent Auto 5.4 % (2.6-8.5); Neutrophils Absolute Auto 10.6 K/mm3 (1.3-6.7); Neutrophils Percent Auto 76.9 % (45.5-73.1); Platelet Count Result 319 k/mm3 (150-375); Red Blood Count 4.62 M/mm3 (4.2-5.4); Red Cell Distribution Width 13.2 % (11.5-14.5); White Blood Count 13.8 K/mm3 (4.5-10.0)
[2024-12-06 09:24] LABS: Alanine Aminotransferase 12 U/L (6-35); Albumin Level 3.4 g/dL (3.5-5.1); Alkaline Phosphatase 69 U/L (38-126); Anion Gap 11 mmol/L (4-12); Aspartate Amino Transferase 17 U/L (14-36); Bilirubin,Total 0.4 mg/dL (0.2-1.3); Blood Urea Nitrogen 7 mg/dL (7-17); Calcium 9.3 mg/dL (8.4-10.2); Carbon Dioxide 22 mmol/L (22-30); Chloride 102 mmol/L (98-107); Estimated Glomerular Filt Rate > 60; Glucose 98 mg/dL (65-110); Lactate Dehydrogenase 153 U/L (120-246); Potassium 4.1 mmol/L (3.4-5.0); Sodium 135 mmol/L (137-145); Uric Acid 4.3 mg/dL (2.5-7.5)
[2024-12-06 09:55] LABS: Rapid Plasma Reagin Non-Reactive (NonReactive)
[2024-12-06 09:56] LABS: HIV 1/2 Ab P24 Ag Result Negative (Negative)
[2024-12-06 10:03] LABS: Total Protein Urine Random < 5 mg/dL
== END 2024-12-06 08:18 | disposition home or self-care (01) ==
PROVIDERS: PCP Emergency Medicine; Visit Provider Obstetrics & Gynecology
DX: O10.919 Unspecified pre-existing hypertension complicating pregnancy, unspecified trimester (principal); Z3A.00 Weeks of gestation of pregnancy not specified
CPT/HCPCS: 36415; 80053; 81050; 82570; 83615; 84156; 84550; 85025; 86592; 86703; G0432

== ENCOUNTER 2024-12-20 07:56 | Outpatient (CLI) | payer OTHER, SELFPAY ==
--- OUTSIDE RECORDS SUMMARY | 2024-12-20 08:01 | XMS_ITS | Patient Health Summary ---
Author Organization [facility] [employer] Address [address] [place] [address] Care Team Providers Care Career Based Intervention Coordinator Name Role Phone Unavailable Primary Care Provider Unavailabl e Note from [facility] [place],non-owned Affiliates and Associated Physician Practices is amultiple site organization consisting of ambulatory clinics and hospital sitesin [place], [place], [place] and [place]. This disclosure is being madepursuant to the Care Everywhere program and may not contain all information available regarding this patient. Last updated 18.[facility] [employer] Allergies * Augmentin(Nausea and/or Vomiting) * Azithromycin(Diarrhea) * Cefprozil(Diarrhea) * Methylphenidate(PATIENT'S LIBRARIAN Dysfunction) * Metoclopramide(PATIENT'S LIBRARIAN Dysfunction) Medications * Be aware that medications [...] and heating? Not hard at all 09/15/2024 [facility] - Occupational Stress [...] any time in the past 12 m [facility], were you homeless or living in a retirement (including now)? No 09/15/2024 Estimated Date of Delivery Comme nts Yes 02/28/2025 Based on last me nstrual period of 05/24/2024 Sex and Gender Information Value Date Recorded Sex Assigned at Not on file Gender Identity Not on file Sexual Orientation Not on file Last Filed Vital Signs Vital Sign Reading Time Taken Comments Blood Pressure 151/66 09/15/2024 2:50 PM ANNUAL GIVING MANAGER Pulse 88 09/15/2024 1:53 PM ANNUAL GIVING MANAGER Temperature 37.1 C (98.7 F) 09/15/2024 12:14 PM ANNUAL GIVING MANAGER Respiratory Rate 19 09/15/2024 1:53 PM ANNUAL GIVING MANAGER Oxygen Saturation 98% 09/15/2024 1:29 PM ANNUAL GIVING MANAGER Inhaled Oxygen Concentration - - Weight 159.2 kg (351 lb) 09/15/2024 9:30 AM ANNUAL GIVING MANAGER Height 165.1 cm (5' 5 ) 09/15/2024 9:30 AM ANNUAL GIVING MANAGER Body Mass Index 58.41 09/15/2024 9:30 AM ANNUAL GIVING MANAGER Procedures * SONOGRAM - COMPLETE(Performed 12/07/2024) Performed for Antepartum multigravida of advanced maternal age (HCC), History of delivery, currently (HCC), Obesity affecting in second trimester, unspecified obesity type (HCC), Encounter for ultrasound to assess growth ([facility]), Encounter for follow-up ultrasound of anatomy ([facility]), 28 weeks gestation of ([facility]) * SONOGRAM - COMPLETE(Performed 11/09/2024) Performed for Antepartum multigravida of advanced maternal age (HCC), Obesity affecting in second trimester, unspecified obesity type (HCC), History of delivery, currently (HCC), 20 weeks gestation of (HCC), Encounter for screening for cervical length ([facility]) * SONOGRAM - COMPLETE(Performed 10/26/2024) Performed for Antepartum multigravida of advanced maternal age (HCC), Obesity affecting in second trimester, unspecified obesity type (HCC), History of delivery, currently (HCC), 20 weeks gestation of (HCC), Encounter for screening for cervical length ([facility]) * SONOGRAM - COMPLETE(Performed 10/12/2024) Performed for Antepartum multigravida of advanced maternal age (HCC), Obesity affecting in second trimester, unspecified obesity type (HCC), History of delivery, currently (HCC), 20 weeks gestation of (HCC), Encounter for screening for cervical length ([facility]) * SONOGRAM - TRANSVAGINAL(Performed 09/28/2024) Performed for Antepartum multigravida of advanced maternal age (HCC), Obesity affecting in second trimester, unspecified obesity type (HCC), History of delivery, currently (HCC), Encounter for screening for cervical length ([facility]), 18 weeks gestation of ([facility]), Encounter for anatomic survey ([facility]) * URINE MICROSCOPIC ONLY REFLEX TO CULTURE(Performed [...] present (HCC) Results * SONOGRAM - COMPLETE (12/07/2024 9:40 AM ANNUAL GIVING MANAGER) Only the most recent of6 resultswithin the time period is included. Linked Results Indication ======== Incomplete Anatomy Screen Left Complex Adnexal Mass Class III Obesity History of History ====== OB History 4. Para 1 [id number] 1. miscarriage 2. live 2010. Gest. age 32 w + 5 d. Weight 1,956 g. Details: PPROM/PTL 3. miscarriage Lab Tests Test Date Result NIPT Low risk Maternal Assessment Physical Exam Height 168 cm, 5 ft 6 in. Weight 164 kg, 362 lb. Initial weight 160 kg, 353 lb. BMI 58.43 kg/m . Initial BMI 56.98 kg/m . Weight gain 4 kg, 9 lb Method ====== Transabdominal ultrasound. View: Suboptimal view: limited by maternal body habitus ========= Meier . Number of fetuses: 1 Dating ====== Date Details Gest. age RAMU LMP 05/24/2024 28 w + 1 d 02/28/2025 U/S 12/07/2024 based upon AC, BPD, Femur, HC 29 w + 5 d 02/17/2025 Assigned dating based on the LMP, selected on 09/15/2024 28 w + 1 d 02/28/2025 General Evaluation Cardiac activity present. Presentation: cephalic Placenta: Placental site: anterior Amniotic fluid: Amount of AF: normal. MVP 8.7 cm. RAZ 19.9 cm. Q1 5.0 cm, Q2 4.4 cm, Q3 1.8 cm, Q4 8.7 cm Biometry BPD 75.8 mm 30w 3d 95% Hadlock HC 275.8 mm 30w 1d 80% Hadlock AC 249.9 mm 29w 1d 75% Hadlock Femur 55.2 mm 29w 1d 64% Hadlock Humerus 48.4 mm 28w 3d 52% Julio HC / AC 1.10 -/- Hadlock Weight Calculation: EFW 1,378 g 81% Hadlock EFW (lb,oz) 3 lb 1 oz EFW by Hadlock ([id number]) appropriate Growth Overview Exam date GA BPD (mm) HC (mm) AC (mm) FL (mm) HL (mm) EFW (g) 09/15/2024 16w 2d 33.5 52% 122.6 29% 102 48% 19.6 27% 143 27% 10/12/2024 20w 1d 48.4 70% 179.4 53% 158.7 72% 33 48% 29.3 32% 368 73% 11/09/2024 24w 1d 61 68% 234.7 81% 205.4 72% 42.1 24% 39.8 42% 718 63% 12/07/2024 28w 1d 75.8 95% 275.8 80% 249.9 75% 55.2 64% 48.4 52% 1378 81% Anatomy The following structures appear normal: Head / Neck Cranium. Heart / Thorax 4-chamber view. Interventricular septum. Great vessels. Abdomen Stomach. Kidneys. Bladder. Spine Cervical spine. Thoracic spine. Lumbar spine. Sacral spine. The following structures could not be adequately visualized: Heart / Thorax 9-[id number] view. Aortic arch view. The following structures were documented previously: Head / Neck Lateral ventricles. Choroid plexus. Midline falx. Cavum septi pellucidi. Cerebellum. Cisterna magna. Face Lips. Profile. Nose. Orbits. Heart / Thorax RVOT view. LVOT view. 3-vessel view. Situs. Bicaval view. Ductal arch view. Right lung. Left lung. Diaphragm. Abdomen Cord insertion. Genitals. Extremities / Skeleton Arms. Hands. Legs. Feet. sex: male. Maternal Structures Left Ovary Abnormal Size 55 mm x 39 mm x 44 mm Left Adnexal Mass Size 20.0 mm x 24.0 mm x 19.0 mm. Mean 21.0 mm. Vol 4.775 cm Impression ========= Single, live, intrauterine at 28w 1d size is consistent with the stated gestational age. Amniotic fluid volume: normal Left adnexal mass again noted No major malformations were seen within the limitations of ultrasound - Overall exam quality is suboptimal, due to poor acoustic window. Follow-up ======== Follow up ultrasound in 4 weeks to complete anatomy and growth Coding ====== Procedures [id number]: US Preg Uterus Follow Up [facility] PACS Anatomical Region Laterality Modality Other 12/07/2024 9:40 AM ANNUAL GIVING MANAGER Viktor Rodriguez MD [facility] ORDERABLES * SONOGRAM - TRANSVAGINAL (09/28/2024 8:10 AM ANNUAL GIVING MANAGER) Linked Results Indication ======== G1: SAB G2: 32 wk 1956 gm, PROM/PTL G3: SAB G4: Current , AMA 37 low-risk cf-DNA, Class III obesity (BMI 56) History ====== OB History 4. Para 1 [id number] Lab Tests Test Date Result NIPT Low risk Maternal Assessment = Physical Exam Height 168 cm, 5 ft 6 in. Weight 162 kg, 357 lb. Initial weight 160 kg, 353 lb. BMI 57.62 kg/m . Initial BMI 56.98 kg/m . Weight gain 2 kg, 4 lb ========= Meier . Number of fetuses: 1 Dating ====== Date Details Gest. age RAMU LMP 05/24/2024 18 w + 1 d 02/28/2025 Assigned dating based on the LMP, selected on 09/15/2024 18 w + 1 d 02/28/2025 General Evaluation Cardiac activity present. FHR 150 bpm. Presentation: cephalic Placenta: Placental site: anterior Amniotic fluid: Amount of AF: normal. MVP 5.8 cm Maternal Structures Cervix reassuring Approach - Transvaginal: Cervical length 4.60 cm Impression ========= Single , live, intrauterine at 18w 1d Amniotic fluid volume: normal Transvaginal cervical length appears reassuring measuring 4.6cm Anterior placenta, not a previa. Follow-up ======== Follow up ultrasound in 2 weeks for growth, detailed anatomic survey and transvaginal cervical length screening is recommended Coding ====== Procedures [id number]: US Uterus Limited [id number]: US Preg [facility] Anatom[facility] Region Laterality Modality Other 09/28/2024 8:10 AM ANNUAL GIVING MANAGER Viktor Rodriguez MD [facility] ORDERABLES * URINE MICROSCOPIC ONLY REFLEX TO CULTURE (09/15/2024 2:23 PM ANNUAL GIVING MANAGER) Reflex Status Culture to follow 09/15/2024 2:51 PM ANNUAL GIVING MANAGER [facility] RBC UA 3-5 0 - 5 # /hpf 09/15/2024 2:51 PM ANNUAL GIVING MANAGER [facility] WBC UA 0-5 0 - 5 # /hpf 09/15/2024 2:51 PM ANNUAL GIVING MANAGER [facility] Bacteria UA None Seen None Seen 09/15/2024 2:51 PM ANNUAL GIVING MANAGER [facility] Squamous Epithelial Cells 3-5 0 - 5 /hpf 09/15/2024 2:51 PM ANNUAL GIVING MANAGER [facility] Mucus UA 1+ /LPF 09/15/2024 2:51 PM ANNUAL GIVING MANAGER [facility] Urine URINE SPECIMEN OBTAINED BY CLEAN CATCH PROCEDURE / Unknown Collection / Unknown 09/15/2024 2:23 PM ANNUAL GIVING MANAGER 09/15/2024 2:30 PM ANNUAL GIVING MANAGER Narrative [facility] - 09/15/2024 2:51 PM ANNUAL GIVING MANAGER Shanel Cast MD LAB - URINALYSIS ORD ERABLES [facility] [address] [place] [address] * (ABNORMAL) URINALYSIS REFLEX MICROSCOPIC REFLEX CULTURE (09/15/2024 2:23 PM ANNUAL GIVING MANAGER) Color UA Yellow Straw, Yellow 09/15/2024 2:47 PM ANNUAL GIVING MANAGER [facility] Clarity UA Slt Cloudy(A) Clear 09/15/2024 2:47 PM ANNUAL GIVING MANAGER [facility] Glucose UA Negative Negative 09/15/2024 2:47 PM ANNUAL GIVING MANAGER [facility] Bilirubin UA Negative Negative 09/15/2024 2:47 PM ANNUAL GIVING MANAGER [facility] Ketone UA 1+(A) Negative 09/15/2024 2:47 PM ANNUAL GIVING MANAGER [facility] Specific [place] UA 1.029 1.005 - 1.030 09/15/2024 2:47 PM ANNUAL GIVING MANAGER [facility] Blood UA Negative Negative 09/15/2024 2:47 PM ANNUAL GIVING MANAGER [facility] pH UA 5.0 5.0 - 8.0 pH 09/15/2024 2:47 PM ANNUAL GIVING MANAGER [facility] Protein UA 1+(A) Negative 09/15/2024 2:47 PM ANNUAL GIVING MANAGER [facility] Urobilinogen UA Negative Negative mg/dL 09/15/2024 2:47 PM ANNUAL GIVING MANAGER [facility] Nitrite UA Negative Negative 09/15/2024 2:47 PM ANNUAL GIVING MANAGER [facility] Leukocyte UA Trace(A) Negative 09/15/2024 2:[address] [facility] Urine Microscopy Urine microscopy to follow 09/15/2024 2:[address] [facility] Reflex Status Culture to follow 09/15/2024 2:47 PM ANNUAL GIVING MANAGER [facility] Urine URINE SPECIMEN OBTAINED BY CLEAN CATCH PROCEDURE / Unknown Collection / Unknown 09/15/2024 2:23 PM ANNUAL GIVING MANAGER 09/15/2024 2:30 PM ANNUAL GIVING MANAGER Narrative [facility] - 09/15/2024 2:47 PM ANNUAL GIVING MANAGER Ascorbic Acid can cause false negative urine strip tests for blood, glucose, nitrite, and bilirubin. Shanel Cast MD LAB - URINALYSIS ORD ERABLES [facility] [address] [place] [address] * CULTURE URINE (09/15/2024 2:23 PM ANNUAL GIVING MANAGER) Culture Urine <10,000 CFU/mL urogenital evgeny REYES 09/16/2024 9:43 PM ANNUAL GIVING MANAGER [facility] Urine URINE SPECIMEN OBTAINED BY CLEAN CATCH PROCEDURE / Unknown Collection / Unknown 09/15/2024 2:23 PM ANNUAL GIVING MANAGER 09/15/2024 2:30 PM ANNUAL GIVING MANAGER Narrative Authorizing Provider Result Rebeca Cast MD LAB - MICROBIOLOGY O RDERABLES [facility] [address] [place] [address], [facility] [phone] * (ABNORMAL) PROTEIN CREATININE RATIO URINE RANDOM PNL (09/15/2024 2:23 PM ANNUAL GIVING MANAGER) Protein Urine 16.6(H) <11.9 mg/dL 09/15/2024 3:02 PM ANNUAL GIVING MANAGER [facility] Creatinine Urine 194.48 mg/dL 09/15/2024 3:02 PM ANNUAL GIVING MANAGER [facility] Protein/Creatin ine Ratio Urine 0.09 09/15/2024 3:02 PM ANNUAL GIVING MANAGER [facility] Urine URINE SPECIMEN OBTAINED BY CLEAN CATCH PROCEDURE / Unknown Collection / Unknown 09/15/2024 2:23 PM ANNUAL GIVING MANAGER 09/15/2024 2:29 PM ANNUAL GIVING MANAGER Narrative Authorizing Provider Result Rebeca Cast MD LAB - URINE CHEMISTR Y ORDERABLES [facility] [address] [place] [phone] * RESPIRATORY PANEL WITH SARS-COV-2 BY PCR (ST[facility]) (09/15/2024 2:13 PM ANNUAL GIVING MANAGER) Pathologist [facility] Adenovirus PCR Not detected Not detected 09/15/2024 7:39 PM [facility] Coronavirus 229E PCR Not detected Not detected 09/15/2024 7:39 PM [facility] Coronavirus HKU1 PCR Not detected Not detected 09/15/2024 7:39 PM ANNUAL GIVING MANAGER [facility] MICRO[facility]OLOG[facility] Coronavirus NL63 PCR Not detected Not detected 09/15/2024 7:39 PM ANNUAL GIVING MANAGER [facility] MICRO[facility]OLOG[facility] Coronavirus OC43 PCR Not detected Not detected 09/15/2024 7:39 PM [facility] COVID-19 PCR Not detected Not detected 09/15/2024 7:39 PM ANNUAL GIVING MANAGER [facility]CRO[facility] Human Metapneumovirus PCR Not detected Not detected 09/15/2024 7:39 PM [facility] Human Rhinovirus/Enterov irus PCR Not detected Not detected 09/15/2024 7:39 PM ANNUAL GIVING MANAGER [facility] Influenza A PCR Not detected Not detected 09/15/2024 7:39 PM ANNUAL GIVING MANAGER [facility] MICRO[facility]OLOG[facility] Influenza B PCR Not detected Not detected 09/15/2024 7:39 PM ANNUAL GIVING MANAGER [facility] MICROBIOLOGY Parainfluenza Virus 1 PCR Not detected Not detected 09/15/2024 7:39 PM ANNUAL GIVING MANAGER [facility]CRO[facility] Parainfluenza Virus 2 PCR Not detected Not detected 09/15/2024 7:39 PM ANNUAL GIVING MANAGER [facility] MICRO[facility] Parainfluenza Virus 3 PCR Not detected Not detected 09/15/2024 7:39 PM ANNUAL GIVING MANAGER [facility] Parainfluenza Virus 4 PCR Not detected Not detected 09/15/2024 7:39 PM ANNUAL GIVING MANAGER [facility] Respiratory Syncytial Virus PCR Not detected Not detected 09/15/2024 7:39 PM ANNUAL GIVING MANAGER [facility] MICRO[facility]OLOG[facility] Bordetella parapertussis PCR Not detected Not detected 09/15/2024 7:39 PM ANNUAL GIVING MANAGER [facility] MICROBIOLOG[facility] Bordetella pertussis PCR Not detected Not detected 09/15/2024 7:39 PM ANNUAL GIVING MANAGER [facility] MICROBIOLOGY Chlamydia pneumoniae PCR Not detected Not detected 09/15/2024 7:39 PM ANNUAL GIVING MANAGER [facility] Mycoplasma pneumoniae PCR Not detected Not detected 09/15/2024 7:39 PM ANNUAL GIVING MANAGER [facility] MICRO[facility]OLOG[facility] Microbiology SPECIMEN FROM NASOPHARYNGEAL STRUCTURE / Unknown Collection / Unknown 09/15/2024 2:13 PM ANNUAL GIVING MANAGER 09/15/2024 2:19 PM ANNUAL GIVING MANAGER Narrative [facility]CRO[facility]OLOG[facility] - 09/15/2024 7:39 PM ANNUAL GIVING MANAGER This nucleic amplification assay has received FDA authorization via the [place] [employer]. Shanel Cast MD LAB - MICROBIOLOGY O RDERABLES [facility]OLOG[facility] [address] [place], [place] [address], [facility] [phone] * (ABNORMAL) CBC W AUTO DIFFERENTIAL (09/15/2024 12:38 PM ANNUAL GIVING MANAGER) WBC 11.6(H) 4.0 - 10.7 x10E9/L 09/15/2024 12:44 PM ANNUAL GIVING MANAGER [facility] RBC Count 4.64 3.90 - 5.20 x10E12/L 09/15/2024 12:[address] [facility] Hemoglobin 13.6 11.9 - 15.8 g/dL 09/15/2024 12:[address] [facility] Hematocrit 39.7 34.8 - 46.1 % 09/15/2024 12:[address] [facility] MCV 85.6 80.0 - 98.0 fL 09/15/2024 12:[address] [facility] MCH 29.3 26.7 - 33.6 pg 09/15/2024 12:[address] [facility] MCHC 34.3 31.7 - 36.3 g/dL 09/15/2024 12:[address] [facility] RDW-CV 11.7 11.3 - 14.8 % 09/15/2024 12:[address] [facility] Platelet Count 307 150 - 420 x10E9/L 09/15/2024 12:[address] [facility] MPV 8.5 7.8 - 11.4 fL 09/15/2024 12:[address] [facility] Neutrophil % 68.6 41.0 - 74.0 % 09/15/2024 12:[address] [facility] Lymphocyte % 23.2 17.0 - 47.0 % 09/15/2024 12:[address] [facility] Monocyte % 5.9 3.0 - 11.0 % 09/15/2024 12:[address] [facility] Eosinophil % 1.2 0.0 - 7.0 % 09/15/2024 12:[address] [facility] Basophil % 0.3 0.0 - 1.6 % 09/15/2024 12:[address] [facility] Immature Granulocytes % 0.8 0.0 - 1.0 % 09/15/2024 12:[address] [facility] Neutrophil Absolute 7.94(H) 1.60 - 7.50 x10E9/L 09/15/2024 12:[address] [facility] Lymphocyte Absolute 2.69 1.00 - 4.40 x10E9/L 09/15/2024 12:[address] [facility] Monocyte Absolute 0.68 0.15 - 1.00 x10E9/L 09/15/2024 12:[address] [facility] Eosinophil Absolute 0.14 0.00 - 0.60 x10E9/L 09/15/2024 12:[address] [facility] Basophil Absolute 0.04 0.00 - 0.13 x10E9/L 09/15/2024 12:[address] [facility] Blood BLOOD SPECIMEN / Unknown Venipuncture / Unknown 09/15/2024 12:38 PM ANNUAL GIVING MANAGER 09/15/2024 12:41 PM [facility] Shanel Cast MD LAB - HEMATOLOGY ORD ERABLES [facility] [address] [place] [address] * (ABNORMAL) COMPREHENSIVE METABOLIC PANEL (09/15/2024 12:38 PM [facility]) Glucose 81 70 - 99 mg/dL 09/15/2024 1:[address] [facility] Sodium 137 136 - 145 mmol/L 09/15/2024 1:[address] [facility] Potassium 3.8 3.5 - 5.1 mmol/L 09/15/2024 1:[address] [facility] Chloride 110(H) 98 - 107 mmol/L 09/15/2024 1:[address] [facility] CO2 18(L) 22 - 29 mmol/L 09/15/2024 1:[address] [facility] Calcium 9.1 8.4 - 10.4 mg/dL 09/15/2024 1:[address] [facility] Anion Gap 9 6 - 16 mmol/L 09/15/2024 1:[address] [facility] BUN 6 5.3 - 18.7 mg/dL 09/15/2024 1:[address] [facility] Creatinine 0.52(L) 0.57 - 1.11 mg/dL 09/15/2024 1:[address] [facility] Alkaline Phosphatase 42 40 - 150 U/L 09/15/2024 1:[address] [facility] ALT 14 0 - 55 U/L 09/15/2024 1:[address] [facility] AST 14 5 - 34 U/L 09/15/2024 1:[address] [facility] Protein Total 6.9 6.4 - 8.3 gm/dL 09/15/2024 1:03 PM ANNUAL GIVING MANAGER [facility] Albumin 2.8(L) 3.4 - 5.0 gm/dL 09/15/2024 1:03 PM ANNUAL GIVING MANAGER [facility] Bilirubin Total 0.2 0.2 - 1.2 mg/dL 09/15/2024 1:03 PM ANNUAL GIVING MANAGER [facility] eGFR by CKD-EPI >90 >=90 mL/min/1.7 3 m2 09/15/2024 1:03 PM ANNUAL GIVING MANAGER [facility] Blood BLOOD SPECIMEN / Unknown Venipuncture / Unknown 09/15/2024 12:38 PM ANNUAL GIVING MANAGER 09/15/2024 12:41 PM ANNUAL GIVING MANAGER Shanel Cast MD LAB - CHEMISTRY ROSARIO DURÁN [facility] [address], [place] [id number]
--- OUTSIDE RECORDS SUMMARY | 2024-12-20 08:01 | XMS_ITS | Clinical Summary ---
Author Organization [facility] Address [address] [place] [address] Care Team Providers Care Adult Protective Caseworker Name Role Phone Unavailable Primary Care Provider Unavailabl e Source Comments [facility],non-owned Affiliates and Associated Physician Practices is amultiple site organization consisting of ambulatory clinics and hospital sitesin [place], [place], [place] and [place]. This disclosure is being madepursuant to the Care Everywhere program and may not contain all information available regarding this patient. Last updated 18.[facility] Allergies Active Allergy Reactions Criticality Noted Date Comments Augmentin Nausea and/or Vomiting 08/24/2024 Azithromycin Diarrhea 08/24/2024 Cefprozil Diarrhea 08/24/2024 Methylphenidate DIRECTOR OF CONSULTING SERVICES Dysfunction 08/24/2024 Metoclopramide DIRECTOR OF CONSULTING SERVICES Dysfunction 08/24/2024 Medications * Be aware that [...] Encounters Date Type Department Care Team Description 12/07/2024 9:39 AM CLERICAL ASSISTANT - 12/07/2024 11:59 PM CLERICAL ASSISTANT Hospital Encounter [facility] [address] [place] [address] [phone] Tamia Rangel MD Discharge Disposition: Home or Self Care 12/07/2024 Travel 11/09/2024 9:43 AM CLERICAL ASSISTANT - 11/09/2024 11:59 PM CLERICAL ASSISTANT Hospital Encounter [facility] [address] [place] [phone] Segun, Shanel Chen MD Discharge Disposition: Home or Self Care 10/26/2024 8:15 AM CLERICAL ASSISTANT - 10/26/2024 11:59 PM CLERICAL ASSISTANT Hospital Encounter [facility] [address] [place] [address] [phone] Walter Joshi MD Discharge Disposition: Home or Self Care 10/12/2024 9:00 AM CLERICAL ASSISTANT - 10/12/2024 11:59 PM CLERICAL ASSISTANT Hospital Encounter [facility] [address] [place] [address] [phone] Lobito Alexander DO VESSEL LINER Discharge Disposition: Home or Self Care 09/28/2024 8:09 AM CLERICAL ASSISTANT - 09/28/2024 11:59 PM CLERICAL ASSISTANT Hospital Encounter [facility] [address] [place] [address] [phone] Tamia Rangel MD Discharge Disposition: Home or Self Care from Last 3 Months Family History Medical [...] and heating? Not hard at all 09/15/2024 [facility] [place] of Occupat ional Health - Occupational Stress [...] any time in the past 12 m [facility], were you homeless or living in a [...] Comments Blood Pressure 151/66 09/15/2024 2:50 PM CLERICAL ASSISTANT Pulse 88 09/15/2024 1:53 PM CLERICAL ASSISTANT Temperature 37.1 C (98.7 F) 09/15/2024 12:14 PM CLERICAL ASSISTANT Respiratory Rate 19 09/15/2024 1:53 PM CLERICAL ASSISTANT Oxygen Saturation 98% 09/15/2024 1:29 PM CLERICAL ASSISTANT Inhaled Oxygen Concentration - - Weight 159.2 kg (351 lb) 09/15/2024 9:30 AM CLERICAL ASSISTANT Height 165.1 cm (5' 5 ) 09/15/2024 9:30 AM CLERICAL ASSISTANT Body Mass Index 58.41 09/15/2024 9:30 AM CLERICAL ASSISTANT Plan of Treatment Upcoming Encounters Date Type Department Care Team (Late st Contact Info) Description 01/03/2025 8:15 AM CLERICAL ASSISTANT Hospital Encounter [facility] Maternal & Care [address] [place] [phone] 03/29/2025 Hospital Encounter [facility] [address] [place] [address] Health Maintenance Due Date Last Done Comments PAP SMEAR 1987 HIV SCREENING 2002 HEPATITIS C SCREENING 10/17/2005 DTAP/TDAP/TD VACCINES (1 - Tdap) 2006 HEPATITIS B VACCINE (1 of 3 - 19+ 3-dose series) 2006 COVID-19 VACCINE ( - 2023-2 5 season) 2024 INFLUENZA VACCINE (#1) 2024 [...] Associated Diagnosis Comments SONOGRAM - COMPLETE Routine 12/07/2024 9 :40 AM CLERICAL ASSISTANT Antepartum multigravida of advanced maternal age (HCC) History of delivery, currently (HCC) Obesity affecting in second trimester, unspecified obesity type (HCC) Encounter for ultrasound to assess growth (HCC) Encounter for follow-up ultrasound of anatomy (HCC) 28 weeks gestation of (HCC) SONOGRAM - COMPLETE Routine 11/09/2024 9 :49 AM CLERICAL ASSISTANT Antepartum multigravida of advanced maternal age (HCC) Obesity affecting in second trimester, unspecified obesity type (HCC) History of delivery, currently (HCC) 20 weeks gestation of (HCC) Encounter for screening for cervical length (HCC) SONOGRAM - COMPLETE Routine 10/26/2024 8 :17 AM CLERICAL ASSISTANT Antepartum multigravida of advanced maternal age (HCC) Obesity affecting in second trimester, unspecified obesity type (HCC) History of delivery, currently (HCC) 20 weeks gestation of (HCC) Encounter for screening for cervical length (HCC) SONOGRAM - COMPLETE Routine 10/12/2024 9 :07 AM CLERICAL ASSISTANT Antepartum multigravida of advanced maternal age (HCC) Obesity affecting in second trimester, unspecified obesity type (HCC) History of delivery, currently (HCC) 20 weeks gestation of (HCC) Encounter for screening for cervical length (HCC) SONOGRAM - TRANSVAGINAL Routine 09/28/2024 8:10 AM CLERICAL ASSISTANT Antepartum multigravida of advanced maternal age (HCC) Obesity affecting in second trimester, unspecified obesity type (HCC) History of delivery, currently (HCC) Encounter for screening for cervical length (HCC) 18 weeks gestation of (HCC) Encounter for anatomic survey (HCC) from Last 3 Months Results * SONOGRAM - COMPLETE (12/07/2024 9:40 AM CLERICAL ASSISTANT) Only the most recent of4 resultswithin the time period is included. Linked Results Indication ======== Incomplete Anatomy Screen Left Complex Adnexal Mass Class III Obesity History of History ====== OB History 4. Para 1 [id number] 1. miscarriage 2. live 2010. Gest. age [...] 3 lb 1 oz EFW by Hadlock ([id number]) appropriate Growth Overview Exam date [place] BPD [...] not be adequately visualized: Heart / Thorax 3-[id number]-[id number] view. Aortic arch view. The following structures [...] complete anatomy and growth Coding ====== Procedures [id number]: US Preg Uterus Follow Up [facility] [email or web address] PACS Anatomical Region Laterality Modality Other 12/07/2024 9:4 0 AM CLERICAL ASSISTANT Viktor Rodriguez MD [facility] ORDERABLES * SONOGRAM - TRANSVAGINAL (09/28/2024 8:10 AM CLERICAL ASSISTANT) Linked Results Indication ======== G1: SAB G2: 32 wk 1956 gm, PROM/PTL G3: SAB G4: Current , AMA 37 low-risk cf-DNA, Class III obesity (BMI 56) History ====== OB History 4. Para 1 [id number] Lab Tests Test Date Result NIPT Low [...] length screening is recommended Coding ====== Procedures 13086: US Uterus Limited 97996: US Preg Uterus Transvaginal [facility] [email or web address] PACS Anatomical Region Laterality Modality Other 09/28/2024 8:10 AM CLERICAL ASSISTANT Viktor Rodriguez MD [facility] ORDERABLES from Last 3 Months Jennifer Guzman Personal/Family Self 1985
--- OUTSIDE RECORDS SUMMARY | 2024-12-20 08:01 | XMS_ITS | Referral Summary ---
Author Organization [facility] Address [address] [place] [address] Care Team Providers Care Geomagnetist Name Role Phone Unavailable Primary Care Provider Unavailabl e Source Comments [facility],non-owned Affiliates and Associated Physician Practices is amultiple site organization consisting of ambulatory clinics and hospital sitesin [place], [place], [place] and [place]. This disclosure is being madepursuant to the Care Everywhere program and may not contain all information available regarding this patient. Last updated 18.[facility] Encounters Date Type Department Care Team Description 12/07/2024 Travel 12/07/2024 9:39 AM BARREL LATHE OPERATOR INSIDE - 12/07/2024 11:59 PM BARREL LATHE OPERATOR INSIDE Hospital Encounter [facility] Maternal & Care [address] [place] [address] [phone] Tamia Rangel MD Discharge Disposition: Home or Self Care 11/09/2024 9:43 AM BARREL LATHE OPERATOR INSIDE - 11/09/2024 11:59 PM BARREL LATHE OPERATOR INSIDE Hospital Encounter [facility] & Care [address] [place] [address] [phone] Head, Shanel Chen MD Discharge Disposition: Home or Self Care 10/26/2024 8:15 AM BARREL LATHE OPERATOR INSIDE - 10/26/2024 11:59 PM BARREL LATHE OPERATOR INSIDE Hospital Encounter [facility] & Care [address] [place] [phone] Walter Joshi MD Discharge Disposition: Home or Self Care 10/12/2024 9:00 AM BARREL LATHE OPERATOR INSIDE - 10/12/2024 11:59 PM BARREL LATHE OPERATOR INSIDE Hospital Encounter [facility] Care [address] [place] [address] Lobito Alexander DO PETROLEUM REFINERY OPERATOR Discharge Disposition: Home or Self Care 09/28/2024 8:09 AM BARREL LATHE OPERATOR INSIDE - 09/28/2024 11:59 PM BARREL LATHE OPERATOR INSIDE Hospital Encounter [facility] [address] [place] [address] Tamia Rangel MD Discharge Disposition: Home or Self Care from Last 3 Months Allergies Active Allergy Reactions Criticality Noted Date Comments Augmentin Nausea and/or Vomiting 08/24/2024 Azithromycin Diarrhea 08/24/2024 Cefprozil Diarrhea 08/24/2024 Methylphenidate LABORER POWERHOUSE Dysfunction 08/24/2024 Metoclopramide LABORER POWERHOUSE Dysfunction 08/24/2024 Medications * Be aware that [...] and heating? Not hard at all 09/15/2024 [facility] [place] of Occupat ional Health - Occupational Stress [...] any time in the past [address] [facility], were you homeless or living in a chcf (including now)? No 09/15/2024 Estimated Date of Delivery Comme nts Yes 02/28/2025 Based on last me nstrual period of 05/24/2024 Sex and Gender Information Value Date Recorded Sex Assigned at Not on file Gender Identity Not on file Sexual Orientation Not on file Last Filed Vital Signs Vital Sign Reading Time Taken Comments Blood Pressure 151/66 09/15/2024 2:50 PM BARREL LATHE OPERATOR INSIDE Pulse 88 09/15/2024 1:53 PM BARREL LATHE OPERATOR INSIDE Temperature 37.1 C (98.7 F) 09/15/2024 12:14 PM BARREL LATHE OPERATOR INSIDE Respiratory Rate 19 09/15/2024 1:53 PM BARREL LATHE OPERATOR INSIDE Oxygen Saturation 98% 09/15/2024 1:29 PM BARREL LATHE OPERATOR INSIDE Inhaled Oxygen Concentration - - Weight 159.2 kg (351 lb) 09/15/2024 9:30 AM BARREL LATHE OPERATOR INSIDE Height 165.1 cm (5' 5 ) 09/15/2024 9:30 AM BARREL LATHE OPERATOR INSIDE Body Mass Index 58.41 09/15/2024 9:30 AM BARREL LATHE OPERATOR INSIDE Plan of Treatment Upcoming Encounters Date Type Department Care Team (Late st Contact Info) Description 01/03/2025 8:15 AM BARREL LATHE OPERATOR INSIDE Hospital Encounter [facility] Maternal & Care [address] [place] [phone] 03/29/2025 Hospital Encounter [facility] [address] [place] [address] Procedures Procedure Name Priority Date/Time Associated Diagnosis Comments SONOGRAM - COMPLETE Routine 12/07/2024 9 :40 AM BARREL LATHE OPERATOR INSIDE Antepartum multigravida of advanced maternal age (HCC) History of delivery, currently (HCC) Obesity affecting in second trimester, unspecified obesity type (HCC) Encounter for ultrasound to assess growth ([facility]) Encounter for follow-up ultrasound of anatomy (HCC) 28 weeks gestation of (HCC) SONOGRAM - COMPLETE Routine 11/09/2024 9 :49 AM BARREL LATHE OPERATOR INSIDE Antepartum multigravida of advanced maternal age (HCC) Obesity affecting in second trimester, unspecified obesity type (HCC) History of delivery, currently (HCC) 20 weeks gestation of (HCC) Encounter for screening for cervical length (HCC) SONOGRAM - COMPLETE Routine 10/26/2024 8 :17 AM BARREL LATHE OPERATOR INSIDE Antepartum multigravida of advanced maternal age (HCC) Obesity affecting in second trimester, unspecified obesity type (HCC) History of delivery, currently (HCC) 20 weeks gestation of (HCC) Encounter for screening for cervical length (HCC) SONOGRAM - COMPLETE Routine 10/12/2024 9 :07 AM BARREL LATHE OPERATOR INSIDE Antepartum multigravida of advanced maternal age (HCC) Obesity affecting in second trimester, unspecified obesity type (HCC) History of delivery, currently (HCC) 20 weeks gestation of (HCC) Encounter for screening for cervical length (HCC) SONOGRAM - TRANSVAGINAL Routine 09/28/2024 8:10 AM BARREL LATHE OPERATOR INSIDE Antepartum multigravida of advanced maternal age (HCC) Obesity affecting in second trimester, unspecified obesity type (HCC) History of delivery, currently ([facility]) Encounter for screening for cervical length (HCC) 18 weeks gestation of ([facility]) Encounter for anatomic survey ([facility]) from Last 3 Months Results * SONOGRAM - COMPLETE (12/07/2024 9:40 AM BARREL LATHE OPERATOR INSIDE) Only the most recent of4 resultswithin the time period is included. Linked Results Indication ======== Incomplete Anatomy Screen Left Complex Adnexal Mass Class III Obesity History of History ====== OB History 4. Para 1 [id number] 1. miscarriage 2. live 2010. Gest. age [...] 3 lb 1 oz EFW by Hadlock ([id number]) appropriate Growth Overview Exam date [place] BPD [...] not be adequately visualized: Heart / Thorax 2-fojawa-vietayu view. Aortic arch view. The following structures [...] complete anatomy and growth Coding ====== Procedures [id number]: US Preg Uterus Follow Up [facility] PACS Anatomical Region Laterality Modality Other 12/07/2024 9:40 AM BARREL LATHE OPERATOR INSIDE Viktor Rodriguez MD [facility] ORDERABLES * SONOGRAM - TRANSVAGINAL (09/28/2024 8:10 AM BARREL LATHE OPERATOR INSIDE) Linked Results Indication ======== G1: SAB G2: 32 wk 1956 gm, PROM/PTL G3: SAB G4: Current , AMA 37 low-risk cf-DNA, Class III obesity (BMI 56) History ====== OB History 4. Para 1 [id number] Lab Tests Test Date Result NIPT Low [...] length screening is recommended Coding ====== Procedures 48983: US Uterus Limited 91843: US Preg Uterus Transvaginal [facility] PACS Anatomical Region Laterality Modality Other 09/28/2024 8:10 AM BARREL LATHE OPERATOR INSIDE Viktor Rodriguez MD [facility] ORDERABLES from Last 3 Months Jennifer Guzman Personal/Family Self 1985
--- OUTSIDE RECORDS SUMMARY | 2024-12-20 08:01 | XMS_ITS | Clinical Summary ---
Author Organization [facility] Address [facility] [place] [address] Care Team Providers Care Sliver Cutter Name Role Phone Yvon Crook MD Primary Care Provider [phone] Allergies Active Allergy Reactions Criticality Noted Date [...] of breath (cough). 18 g 4 Active Social History Tobacco Use Types Packs/Day Years [...] Comments Blood Pressure 131/72 09/12/2024 12:25 PM CROSS CUT SAW OPERATOR Pulse 70 09/12/2024 12:25 PM CROSS CUT SAW OPERATOR Temperature 36.7 C (98 F) 09/12/2024 12:25 PM CROSS CUT SAW OPERATOR Respiratory Rate 22 09/12/2024 12:25 PM CROSS CUT SAW OPERATOR Oxygen Saturation 95% 09/12/2024 12:25 PM CROSS CUT SAW OPERATOR Inhaled Oxygen Concentration - - Weight 159.2 kg (351 lb) 09/12/2024 11:02 AM CROSS CUT SAW OPERATOR Height 165.1 cm (5' 5 ) 09/12/2024 11:02 AM CROSS CUT SAW OPERATOR Body Mass Index 58.41 09/12/2024 11:02 AM CROSS CUT SAW OPERATOR Plan of Treatment Health Maintenance Due Date [...] Every 5 Years 2017 Cervical Cancer Screening wi HPV 2017 COVID-19 Vaccine ( - 2023-2 [...] on patient's age to complete this topic Insurance Care Teams Sliver Cutter Relationship Specialty Start Date End Date Yvon Crook MD [address] [place] [address] PCP - General FAMILY PRACTICE 12/18/22
[2024-12-20 09:46] LABS: Glucose 1 Hour PP 50gm Dose 153 mg/dL
== END 2024-12-20 07:57 | disposition home or self-care (01) ==
LOC: ANHLAB 07:57
PROVIDERS: PCP Emergency Medicine; Visit Provider Obstetrics & Gynecology
DX: Z34.90 Encounter for supervision of normal pregnancy, unspecified, unspecified trimester (principal)
CPT/HCPCS: 36415; 82947

== ENCOUNTER 2024-12-21 08:53 | Outpatient (CLI) | payer OTHER, SELFPAY ==
--- NOTE | ~2024-12-21 | US_ITS ---
EXAMINATION: US OB limited w BPP DATE: 12/21/2024 11:01 INDICATION: -induced hypertension during third trimester of TECHNIQUE: Real-time pelvic ultrasound was performed. The interpreting radiologist was not present fo r the study. COMPARISON: None. FINDINGS: There is a single living fetus in vertex presentation. The placenta is anterior fundal. heart rate is 131 beats per minute (bpm). Normal amniotic fluid index of 13.0 cm (5th%-95%: 9.0-23.4 cm at 30 weeks estimated gestational age). Biophysical profile performed by the technologist: breathing (30 sec sustained breathing in 30 minutes): 2 out of 2 movement (3 gross body movements in 30 minutes): 2 out of 2 tone (one episode of gzvlgcm-hshmonlly-iguhksx limb movement): 2 out of 2 Amniotic fluid pocket (2 cm): 2 out of 2 Total score: 8 out of 8 IMPRESSION: 1. Single living fetus in vertex presentation with heart rate of 131 bpm. 2. Biophysical profile 8 out of 8. 3. Normal amniotic fluid index of 13.0 cm. Reviewed, dictated and finalized at location A. [facility]
[2024-12-21 09:33] VITALS: BP 153/71; PULSE 87
[2024-12-21 09:40] VITALS: BMI 60.7
--- OUTSIDE RECORDS SUMMARY | 2024-12-21 09:42 | XMS_ITS | Clinical Summary ---
Author Organization [facility] Address [address] [place] [address] Care Team Providers Care Assistant Account Manager Name Role Phone Unavailable Primary Care Provider Unavailabl e Source Comments [facility],non-owned Affiliates and Associated Physician Practices is amultiple site organization consisting of ambulatory clinics and hospital sitesin [place], [place], [place] and [place]. This disclosure is being madepursuant to the Care Everywhere program and may not contain all information available regarding this patient. Last updated 18.[facility] Allergies Active Allergy Reactions Criticality Noted Date Comments Augmentin Nausea and/or Vomiting 08/24/2024 Azithromycin Diarrhea 08/24/2024 Cefprozil Diarrhea 08/24/2024 Methylphenidate GEOSCIENCES PROFESSOR Dysfunction 08/24/2024 Metoclopramide GEOSCIENCES PROFESSOR Dysfunction 08/24/2024 Medications * Be aware that [...] Department Care Team Description 12/07/2024 9:39 AM DAIRY LABORATORY TECHNICIAN - 12/07/2024 11:59 PM DAIRY LABORATORY TECHNICIAN Hospital Encounter [facility] Maternal & Care [address] [place] [address] [phone] Tamia Rangel MD Discharge Disposition: Home or Self Care 12/07/2024 Travel 11/09/2024 9:43 AM DAIRY LABORATORY TECHNICIAN - 11/09/2024 11:59 PM DAIRY LABORATORY TECHNICIAN Hospital Encounter [facility]aternal & Care [address] [place] [phone] Segun, Shanel Chen MD Discharge Disposition: Home or Self Care 10/26/2024 8:15 AM DAIRY LABORATORY TECHNICIAN - 10/26/2024 11:59 PM DAIRY LABORATORY TECHNICIAN Hospital Encounter [facility] M[facility] & Care [address] [place] [address] [phone] Walter Joshi MD Discharge Disposition: Home or Self Care 10/12/2024 9:00 AM DAIRY LABORATORY TECHNICIAN - 10/12/2024 11:59 PM DAIRY LABORATORY TECHNICIAN Hospital Encounter [facility] Maternal & Care [address] [place] [phone] Lobito Alexander DO CLAY PRESS OPERATOR Discharge Disposition: Home or Self Care 09/28/2024 8:09 AM DAIRY LABORATORY TECHNICIAN - 09/28/2024 11:59 PM DAIRY LABORATORY TECHNICIAN Hospital Encounter [facility] Maternal & Care [address] [place] [phone] Tamia Rangel MD Discharge Disposition: Home or [...] and heating? Not hard at all 09/15/2024 [facility] [place] of Occupat ional Health - Occupational Stress [...] any time in the past 12 m [facility], were you homeless or living in a snf (including now)? No 09/15/2024 Estimated Date of Delivery Comme nts Yes 02/28/2025 Based on last me nstrual period of 05/24/2024 Sex and Gender Information Value Date Recorded Sex Assigned at Not on file Gender Identity Not on file Sexual Orientation Not on file Last Filed Vital Signs Vital Sign Reading Time Taken Comments Blood Pressure 151/66 09/15/2024 2:50 PM DAIRY LABORATORY TECHNICIAN Pulse 88 09/15/2024 1:53 PM DAIRY LABORATORY TECHNICIAN Temperature 37.1 C (98.7 F) 09/15/2024 12:14 PM DAIRY LABORATORY TECHNICIAN Respiratory Rate 19 09/15/2024 1:53 PM DAIRY LABORATORY TECHNICIAN Oxygen Saturation 98% 09/15/2024 1:29 PM DAIRY LABORATORY TECHNICIAN Inhaled Oxygen Concentration - - Weight 159.2 kg (351 lb) 09/15/2024 9:30 AM DAIRY LABORATORY TECHNICIAN Height 165.1 cm (5' 5 ) 09/15/2024 9:30 AM DAIRY LABORATORY TECHNICIAN Body Mass Index 58.41 09/15/2024 9:30 AM DAIRY LABORATORY TECHNICIAN Plan of Treatment Upcoming Encounters Date Type Department Care Team (Late st Contact Info) Description 01/03/2025 8:15 AM DAIRY LABORATORY TECHNICIAN Hospital Encounter [facility] Maternal & Care [address] [place] [phone] 03/29/2025 Hospital Encounter [facility] [address] [place] [address] Health Maintenance Due Date Last Done Comments [...] - COMPLETE Routine 12/07/2024 9 :40 AM DAIRY LABORATORY TECHNICIAN Antepartum multigravida of advanced maternal age (HCC) History of delivery, currently (HCC) Obesity affecting in second trimester, unspecified obesity type (HCC) Encounter for ultrasound to assess growth (HCC) Encounter for follow-up ultrasound of anatomy (HCC) 28 weeks gestation of (HCC) SONOGRAM - COMPLETE Routine 11/09/2024 9 :49 AM DAIRY LABORATORY TECHNICIAN Antepartum multigravida of advanced maternal age (HCC) Obesity affecting in second trimester, unspecified obesity type (HCC) History of delivery, currently (HCC) 20 weeks gestation of (HCC) Encounter for screening for cervical length (HCC) SONOGRAM - COMPLETE Routine 10/26/2024 8 :17 AM DAIRY LABORATORY TECHNICIAN Antepartum multigravida of advanced maternal age (HCC) Obesity affecting in second trimester, unspecified obesity type (HCC) History of delivery, currently (HCC) 20 weeks gestation of (HCC) Encounter for screening for cervical length (HCC) SONOGRAM - COMPLETE Routine 10/12/2024 9 :07 AM DAIRY LABORATORY TECHNICIAN Antepartum multigravida of advanced maternal age (HCC) Obesity affecting in second trimester, unspecified obesity type (HCC) History of delivery, currently (HCC) 20 weeks gestation of (HCC) Encounter for screening for cervical length (HCC) SONOGRAM - TRANSVAGINAL Routine 09/28/2024 8:10 AM DAIRY LABORATORY TECHNICIAN Antepartum multigravida of advanced maternal age (HCC) Obesity affecting in second trimester, unspecified obesity type (HCC) History of delivery, currently (HCC) Encounter for screening for cervical length (HCC) 18 weeks gestation of (HCC) Encounter for anatomic survey (HCC) from Last 3 Months Results * SONOGRAM - COMPLETE (12/07/2024 9:40 AM DAIRY LABORATORY TECHNICIAN) Only the most recent of4 resultswithin the time period is included. Linked Results Indication ======== Incomplete Anatomy Screen Left Complex Adnexal Mass Class III Obesity History of History ====== OB History 4. Para 1 [id number] 1. miscarriage 2. live 2010. Gest. age [...] 3 lb 1 oz EFW by Hadlock ([id number]) appropriate Growth Overview Exam date [place] BPD [...] not be adequately visualized: Heart / Thorax 7-[id number]-[id number] view. Aortic arch view. The following structures [...] complete anatomy and growth Coding ====== Procedures [id number]: US Preg Uterus Follow Up [facility] [email or web address] PACS Anatomical Region Laterality Modality Other 12/07/2024 9:4 0 AM DAIRY LABORATORY TECHNICIAN Viktor Rodriguez MD [facility] ORDERABLES * SONOGRAM - TRANSVAGINAL (09/28/2024 8:10 AM DAIRY LABORATORY TECHNICIAN) Linked Results Indication ======== G1: SAB G2: 32 wk 1956 gm, PROM/PTL G3: SAB G4: Current , AMA 37 low-risk cf-DNA, Class III obesity (BMI 56) History ====== OB History 4. Para 1 [id number] Lab Tests Test Date Result NIPT Low [...] length screening is recommended Coding ====== Procedures 16188: US Uterus Limited 03784: US Preg Uterus Transvaginal . [facility] [email or web address] PACS Anatomical Region Laterality Modality Other 09/28/2024 8:10 AM DAIRY LABORATORY TECHNICIAN Viktor Rodriguez MD [facility] ORDERABLES from Last 3 Months Jennifer Guzman Personal/Family Self 1985
--- OUTSIDE RECORDS SUMMARY | 2024-12-21 09:42 | XMS_ITS | Clinical Summary ---
Author Organization [facility] Address Formerly [facility] [place] [address] Care Team Providers Care Beam Dyer Name Role Phone Yvon Crook MD Primary Care Provider [phone] Allergies Active Allergy Reactions Criticality Noted Date [...] Comments Blood Pressure 131/72 09/12/2024 12:25 PM REGIONAL EHS MANAGER Pulse 70 09/12/2024 12:25 PM REGIONAL EHS MANAGER Temperature 36.7 C (98 F) 09/12/2024 12:25 PM REGIONAL EHS MANAGER Respiratory Rate 22 09/12/2024 12:25 PM REGIONAL EHS MANAGER Oxygen Saturation 95% 09/12/2024 12:25 PM REGIONAL EHS MANAGER Inhaled Oxygen Concentration - - Weight 159.2 kg (351 lb) 09/12/2024 11:02 AM REGIONAL EHS MANAGER Height 165.1 cm (5' 5 ) 09/12/2024 11:02 AM REGIONAL EHS MANAGER Body Mass Index 58.41 09/12/2024 11:02 AM REGIONAL EHS MANAGER Plan of Treatment Health Maintenance Due Date [...] to complete this topic Insurance Care Teams Beam Dyer Relationship Specialty Start Date End Date Yvon Crook MD [address] [place] [address] PCP - General FAMILY PRACTICE 12/18/22
--- OUTSIDE RECORDS SUMMARY | 2024-12-21 09:42 | XMS_ITS | Patient Health Summary ---
Author Organization [facility] Address [address] [place] [address] Care Team Providers Care Retort Load Expediter Name Role Phone Unavailable Primary Care Provider Unavailabl e Note from [facility],non-owned Affiliates and Associated Physician Practices is amultiple site organization consisting of ambulatory clinics and hospital sitesin [place], [place], [place] and [place]. This disclosure is being madepursuant to the Care Everywhere program and may not contain all information available regarding this patient. Last updated 18.[facility] Allergies * Augmentin(Nausea and/or Vomiting) * Azithromycin(Diarrhea) * Cefprozil(Diarrhea) * Methylphenidate(RETAIL MERCHANDISING MANAGER Dysfunction) * Metoclopramide(RETAIL MERCHANDISING MANAGER Dysfunction) Medications * Be aware that medications [...] and heating? Not hard at all 09/15/2024 [facility] [place] [facility] - Occupational Stress [...] any time in the past 12 [facility], were you homeless or living in a senior living (including now)? No 09/15/2024 Estimated Date of Delivery Comme nts Yes 02/28/2025 Based on last me nstrual period of 05/24/2024 Sex and Gender Information Value Date Recorded Sex Assigned at Not on file Gender Identity Not on file Sexual Orientation Not on file Last Filed Vital Signs Vital Sign Reading Time Taken Comments Blood Pressure 151/66 09/15/2024 2:50 PM ASSEMBLER CATERPILLAR SPIDER Pulse 88 09/15/2024 1:53 PM ASSEMBLER CATERPILLAR SPIDER Temperature 37.1 C (98.7 F) 09/15/2024 12:14 PM ASSEMBLER CATERPILLAR SPIDER Respiratory Rate 19 09/15/2024 1:53 PM ASSEMBLER CATERPILLAR SPIDER Oxygen Saturation 98% 09/15/2024 1:29 PM ASSEMBLER CATERPILLAR SPIDER Inhaled Oxygen Concentration - - Weight 159.2 kg (351 lb) 09/15/2024 9:30 AM ASSEMBLER CATERPILLAR SPIDER Height 165.1 cm (5' 5 ) 09/15/2024 9:30 AM ASSEMBLER CATERPILLAR SPIDER Body Mass Index 58.41 09/15/2024 9:30 AM ASSEMBLER CATERPILLAR SPIDER Procedures * SONOGRAM - COMPLETE(Performed 12/07/2024) Performed for Antepartum multigravida of advanced maternal age (HCC), History of delivery, currently (HCC), Obesity affecting in second trimester, unspecified obesity type (HCC), Encounter for ultrasound to assess growth ([facility]), Encounter for follow-up ultrasound of anatomy ([facility]), 28 weeks gestation of ([facility]) * SONOGRAM - COMPLETE(Performed 11/09/2024) Performed for Antepartum multigravida of advanced maternal age (HCC), Obesity affecting in second trimester, unspecified obesity type (HCC), History of delivery, currently (HCC), 20 weeks gestation of (HCC), Encounter for screening for cervical length ([facility]) * SONOGRAM - COMPLETE(Performed 10/26/2024) Performed for Antepartum multigravida of advanced maternal age (HCC), Obesity affecting in second trimester, unspecified obesity type (HCC), History of delivery, currently (HCC), 20 weeks gestation of (HCC), Encounter for screening for cervical length ([facility]) * SONOGRAM - COMPLETE(Performed 10/12/2024) Performed for Antepartum multigravida of advanced maternal age (HCC), Obesity affecting in second trimester, unspecified obesity type (HCC), History of delivery, currently (HCC), 20 weeks gestation of (HCC), Encounter for screening for cervical length ([facility]) * SONOGRAM - TRANSVAGINAL(Performed 09/28/2024) Performed for Antepartum multigravida of advanced maternal age (HCC), Obesity affecting in second trimester, unspecified obesity type (HCC), History of delivery, currently (HCC), Encounter for screening for cervical length ([facility]), 18 weeks gestation of ([facility]), Encounter for anatomic survey ([facility]) * URINE MICROSCOPIC ONLY REFLEX TO CULTURE(Performed [...] * SONOGRAM - COMPLETE (12/07/2024 9:40 AM ASSEMBLER CATERPILLAR SPIDER) Only the most recent of6 resultswithin the time period is included. Linked Results Indication ======== Incomplete Anatomy Screen Left Complex Adnexal Mass Class III Obesity History of History ====== OB History 4. Para 1 [id number] 1. miscarriage 2. live 2010. Gest. age [...] 3 lb 1 oz EFW by Hadlock ([id number]) appropriate Growth Overview Exam date [place] BPD [...] not be adequately visualized: Heart / Thorax [id number] view. Aortic arch view. The following structures [...] complete anatomy and growth Coding ====== Procedures 90813: US Preg Uterus Follow Up [facility] PACS Anatomical Region Laterality Modality Other 12/07/2024 9:40 AM ASSEMBLER CATERPILLAR SPIDER Viktor Rodriguez MD [facility] ORDERABLES * SONOGRAM - TRANSVAGINAL (09/28/2024 8:10 AM ASSEMBLER CATERPILLAR SPIDER) Linked Results Indication ======== G1: SAB G2: 32 wk 1956 gm, PROM/PTL G3: SAB G4: Current , AMA 37 low-risk cf-DNA, Class III obesity (BMI 56) History ====== OB History 4. Para 1 [id number] Lab Tests Test Date Result NIPT Low [...] length screening is recommended Coding ====== Procedures 38342: US Uterus Limited 88054: US Preg [facility]us [facility] Anatomical Region Laterality Modality Other 09/28/2024 8:10 AM ASSEMBLER CATERPILLAR SPIDER Viktor Rodriguez MD [facility] ORDERABLES * URINE MICROSCOPIC ONLY REFLEX TO CULTURE (09/15/2024 2:23 PM ASSEMBLER CATERPILLAR SPIDER) Reflex Status Culture to follow 09/15/2024 2:51 PM ASSEMBLER CATERPILLAR SPIDER [facility] RBC UA 3-5 0 - 5 # /hpf 09/15/2024 2:51 PM ASSEMBLER CATERPILLAR SPIDER [facility] WBC UA 0-5 0 - 5 # /hpf 09/15/2024 2:51 PM ASSEMBLER CATERPILLAR SPIDER [facility] Bacteria UA None Seen None Seen 09/15/2024 2:51 PM ASSEMBLER CATERPILLAR SPIDER [facility] Squamous Epithelial Cells 3-5 0 - 5 /hpf 09/15/2024 2:51 PM ASSEMBLER CATERPILLAR SPIDER [facility] Mucus UA 1+ /LPF 09/15/2024 2:51 PM ASSEMBLER CATERPILLAR SPIDER [facility] Urine URINE SPECIMEN OBTAINED BY CLEAN CATCH PROCEDURE / Unknown Collection / Unknown 09/15/2024 2:23 PM ASSEMBLER CATERPILLAR SPIDER 09/15/2024 2:30 PM ASSEMBLER CATERPILLAR SPIDER Narrative [facility] - 09/15/2024 2:51 PM ASSEMBLER CATERPILLAR SPIDER Shanel Cast MD LAB - URINALYSIS ORD ERABLES [facility] [address] [place] [address] * (ABNORMAL) URINALYSIS REFLEX MICROSCOPIC REFLEX CULTURE (09/15/2024 2:23 PM ASSEMBLER CATERPILLAR SPIDER) Color UA Yellow Straw, Yellow 09/15/2024 2:47 PM ASSEMBLER CATERPILLAR SPIDER [facility] Clarity UA Slt Cloudy(A) Clear 09/15/2024 2:47 PM ASSEMBLER CATERPILLAR SPIDER [facility] Glucose UA Negative Negative 09/15/2024 2:47 PM ASSEMBLER CATERPILLAR SPIDER [facility] Bilirubin UA Negative Negative 09/15/2024 2:47 PM ASSEMBLER CATERPILLAR SPIDER [facility] Ketone UA 1+(A) Negative 09/15/2024 2:47 PM ASSEMBLER CATERPILLAR SPIDER [facility] Specific [place] UA 1.029 1.005 - 1.030 09/15/2024 2:47 PM ASSEMBLER CATERPILLAR SPIDER [facility] Blood UA Negative Negative 09/15/2024 2:47 PM ASSEMBLER CATERPILLAR SPIDER [facility] pH UA 5.0 5.0 - 8.0 pH 09/15/2024 2:47 PM ASSEMBLER CATERPILLAR SPIDER [facility] Protein UA 1+(A) Negative 09/15/2024 2:47 PM ASSEMBLER CATERPILLAR SPIDER [facility] Urobilinogen UA Negative Negative mg/dL 09/15/2024 2:47 PM ASSEMBLER CATERPILLAR SPIDER [facility] Nitrite UA Negative Negative 09/15/2024 2:47 PM ASSEMBLER CATERPILLAR SPIDER [facility] Leukocyte UA Trace(A) Negative 09/15/2024 2:[address] [facility] Urine Microscopy Urine microscopy to follow 09/15/2024 2:[address] [facility] Reflex Status Culture to follow 09/15/2024 2:47 PM ASSEMBLER CATERPILLAR SPIDER [facility] Urine URINE SPECIMEN OBTAINED BY CLEAN CATCH PROCEDURE / Unknown Collection / Unknown 09/15/2024 2:23 PM ASSEMBLER CATERPILLAR SPIDER 09/15/2024 2:30 PM ASSEMBLER CATERPILLAR SPIDER Narrative [facility] - 09/15/2024 2:47 PM ASSEMBLER CATERPILLAR SPIDER Ascorbic Acid can cause false negative urine strip tests for blood, glucose, nitrite, and bilirubin. Shanel Cast MD LAB - URINALYSIS ORD ERABLES [facility] [address] [place] [address] * CULTURE URINE (09/15/2024 2:23 PM ASSEMBLER CATERPILLAR SPIDER) Culture Urine <10,000 CFU/mL urogenital evgeny REYES 09/16/2024 9:43 PM ASSEMBLER CATERPILLAR SPIDER [facility] Urine URINE SPECIMEN OBTAINED BY CLEAN CATCH PROCEDURE / Unknown Collection / Unknown 09/15/2024 2:23 PM ASSEMBLER CATERPILLAR SPIDER 09/15/2024 2:30 PM ASSEMBLER CATERPILLAR SPIDER Narrative Authorizing Provider Result Rebeca Cast MD LAB - MICROBIOLOGY O RDERABLES [facility] [address] [place] [address], [facility] [phone] * (ABNORMAL) PROTEIN CREATININE RATIO URINE RANDOM PNL (09/15/2024 2:23 PM ASSEMBLER CATERPILLAR SPIDER) Protein Urine 16.6(H) <11.9 mg/dL 09/15/2024 3:02 PM ASSEMBLER CATERPILLAR SPIDER [facility] Creatinine Urine 194.48 mg/dL 09/15/2024 3:02 PM ASSEMBLER CATERPILLAR SPIDER [facility] Protein/Creatin ine Ratio Urine 0.09 09/15/2024 3:02 PM ASSEMBLER CATERPILLAR SPIDER [facility] Urine URINE SPECIMEN OBTAINED BY CLEAN CATCH PROCEDURE / Unknown Collection / Unknown 09/15/2024 2:23 PM ASSEMBLER CATERPILLAR SPIDER 09/15/2024 2:29 PM ASSEMBLER CATERPILLAR SPIDER Narrative Authorizing Provider Result Rebeca Cast MD LAB - URINE CHEMISTR Y ORDERABLES [facility] [address] [place] [id number] * RESPIRATORY PANEL WITH SARS-COV-2 BY PCR (STL) (09/15/2024 2:13 PM ASSEMBLER CATERPILLAR SPIDER) Pathologist [facility] Adenovirus PCR Not detected Not detected 09/15/2024 7:39 PM [facility] Coronavirus 229E PCR Not detected Not detected 09/15/2024 7:39 PM [facility] Coronavirus HKU1 PCR Not detected Not detected 09/15/2024 7:39 PM ASSEMBLER CATERPILLAR SPIDER [facility] Coronavirus NL63 PCR Not detected Not detected 09/15/2024 7:39 PM ASSEMBLER CATERPILLAR SPIDER [facility] Coronavirus OC43 PCR Not detected Not detected 09/15/2024 7:39 PM [facility] COVID-19 PCR Not detected Not detected 09/15/2024 7:39 PM ASSEMBLER CATERPILLAR SPIDER [facility] Human Metapneumovirus PCR Not detected Not detected 09/15/2024 7:39 PM [facility] Human Rhinovirus/Enterov irus PCR Not detected Not detected 09/15/2024 7:39 PM ASSEMBLER CATERPILLAR SPIDER [facility] Influenza A PCR Not detected Not detected 09/15/2024 7:39 PM ASSEMBLER CATERPILLAR SPIDER [facility] Influenza B PCR Not detected Not detected 09/15/2024 7:39 PM ASSEMBLER CATERPILLAR SPIDER [facility] Parainfluenza Virus 1 PCR Not detected Not detected 09/15/2024 7:39 PM ASSEMBLER CATERPILLAR SPIDER [facility] Parainfluenza Virus 2 PCR Not detected Not detected 09/15/2024 7:39 PM ASSEMBLER CATERPILLAR SPIDER [facility] Parainfluenza Virus 3 PCR Not detected Not detected 09/15/2024 7:39 PM ASSEMBLER CATERPILLAR SPIDER [facility] Parainfluenza Virus 4 PCR Not detected Not detected 09/15/2024 7:39 PM ASSEMBLER CATERPILLAR SPIDER [facility] Respiratory Syncytial Virus PCR Not detected Not detected 09/15/2024 7:39 PM ASSEMBLER CATERPILLAR SPIDER [facility] Bordetella parapertussis PCR Not detected Not detected 09/15/2024 7:39 PM ASSEMBLER CATERPILLAR SPIDER [facility] Bordetella pertussis PCR Not detected Not detected 09/15/2024 7:39 PM ASSEMBLER CATERPILLAR SPIDER [facility] Chlamydia pneumoniae PCR Not detected Not detected 09/15/2024 7:39 PM ASSEMBLER CATERPILLAR SPIDER [facility] Mycoplasma pneumoniae PCR Not detected Not detected 09/15/2024 7:39 PM ASSEMBLER CATERPILLAR SPIDER [facility] Microbiology SPECIMEN FROM NASOPHARYNGEAL STRUCTURE / Unknown Collection / Unknown 09/15/2024 2:13 PM ASSEMBLER CATERPILLAR SPIDER 09/15/2024 2:19 PM ASSEMBLER CATERPILLAR SPIDER Narrative [facility] - 09/15/2024 7:39 PM ASSEMBLER CATERPILLAR SPIDER This nucleic amplification assay has received FDA authorization via the [place] [employer]. Shanel Cast MD LAB - MICROBIOLOGY O RDERABLES [facility] [address] [place], [place] [address], [facility] [phone] * (ABNORMAL) CBC W AUTO DIFFERENTIAL (09/15/2024 12:38 PM ASSEMBLER CATERPILLAR SPIDER) WBC 11.6(H) 4.0 - 10.7 x10E9/L 09/15/2024 12:44 PM ASSEMBLER CATERPILLAR SPIDER [facility] RBC Count 4.64 3.90 - 5.20 x10E12/L 09/15/2024 12:[address] [facility] Hemoglobin 13.6 11.9 - 15.8 g/dL 09/15/2024 12:[address] [facility] Hematocrit 39.7 34.8 - 46.1 % 09/15/2024 12:[address] [facility] MCV 85.6 80.0 - 98.0 fL 09/15/2024 12:[address] [facility] MCH 29.3 26.7 - 33.6 pg 09/15/2024 12:[address] [facility] MCHC 34.3 31.7 - 36.3 g/dL 09/15/2024 12:[address] [facility] RDW-CV 11.7 11.3 - 14.8 % 09/15/2024 12:[address] [facility] Platelet Count 307 150 - 420 x10E9/L 09/15/2024 12:[address] [facility] MPV 8.5 7.8 - 11.4 fL 09/15/2024 12:[address] [facility] Neutrophil % 68.6 41.0 - 74.0 % 09/15/2024 12:[address] [facility] Lymphocyte % 23.2 17.0 - 47.0 % 09/15/2024 12:[address] [facility] Monocyte % 5.9 3.0 - 11.0 % 09/15/2024 12:[address] [facility] Eosinophil % 1.2 0.0 - 7.0 % 09/15/2024 12:[address] [facility] Basophil % 0.3 0.0 - 1.6 % 09/15/2024 12:[address] [facility] Immature Granulocytes % 0.8 0.0 - 1.0 % 09/15/2024 12:[address] [facility] Neutrophil Absolute 7.94(H) 1.60 - 7.50 x10E9/L 09/15/2024 12:[address] [facility] Lymphocyte Absolute 2.69 1.00 - 4.40 x10E9/L 09/15/2024 12:[address] [facility] Monocyte Absolute 0.68 0.15 - 1.00 x10E9/L 09/15/2024 12:[address] [facility] Eosinophil Absolute 0.14 0.00 - 0.60 x10E9/L 09/15/2024 12:[address] [facility] Basophil Absolute 0.04 0.00 - 0.13 x10E9/L 09/15/2024 12:[address] [facility] Blood BLOOD SPECIMEN / Unknown Venipuncture / Unknown 09/15/2024 12:38 PM ASSEMBLER CATERPILLAR SPIDER 09/15/2024 12:41 PM [facility] Shanel Cast MD LAB - HEMATOLOGY ORD ERABLES [facility] [address] [place] [address] * (ABNORMAL) COMPREHENSIVE METABOLIC PANEL (09/15/2024 12:38 PM [facility]) Glucose 81 70 - 99 mg/dL 09/15/2024 1:[address] [facility] Sodium 137 136 - 145 mmol/L 09/15/2024 1:[address] [facility] Potassium 3.8 3.5 - 5.1 mmol/L 09/15/2024 1:[address] [facility] Chloride 110(H) 98 - 107 mmol/L 09/15/2024 1:[address] [facility] CO2 18(L) 22 - 29 mmol/L 09/15/2024 1:[address] [facility] Calcium 9.1 8.4 - 10.4 mg/dL 09/15/2024 1:[address] [facility] Anion Gap 9 6 - 16 mmol/L 09/15/2024 1:[address] [facility] BUN 6 5.3 - 18.7 mg/dL 09/15/2024 1:[address] [facility] Creatinine 0.52(L) 0.57 - 1.11 mg/dL 09/15/2024 1:[address] [facility] Alkaline Phosphatase 42 40 - 150 U/L 09/15/2024 1:[address] [facility] ALT 14 0 - 55 U/L 09/15/2024 1:[address] [facility] AST 14 5 - 34 U/L 09/15/2024 1:[address] [facility] Protein Total 6.9 6.4 - 8.3 gm/dL 09/15/2024 1:03 PM ASSEMBLER CATERPILLAR SPIDER [facility] Albumin 2.8(L) 3.4 - 5.0 gm/dL 09/15/2024 1:03 PM ASSEMBLER CATERPILLAR SPIDER [facility] Bilirubin Total 0.2 0.2 - 1.2 mg/dL 09/15/2024 1:03 PM ASSEMBLER CATER[employer]LLAR SPIDER [facility] eGFR by CKD-EPI >90 >=90 mL/min/1.7 3 m2 09/15/2024 1:03 PM ASSEMBLER CATERPILLAR SPIDER [facility] Blood BLOOD SPECIMEN / Unknown Venipuncture / Unknown 09/15/2024 12:38 PM ASSEMBLER CATERPILLAR SPIDER 09/15/2024 12:41 PM ASSEMBLER CATERPILLAR SPIDER Shanel Cats MD LAB - CHEMISTRY ROSARIO DURÁN [facility] [address] [place], [place] [id number]
--- OUTSIDE RECORDS SUMMARY | 2024-12-21 09:42 | XMS_ITS | Referral Summary ---
Author Organization [facility] Address [address] [place] [address] Care Team Providers Care Overlock Operator Name Role Phone Unavailable Primary Care Provider Unavailabl e Source Comments [facility],non-owned Affiliates and Associated Physician Practices is amultiple site organization consisting of ambulatory clinics and hospital sitesin [place], [place], [place] and [place]. This disclosure is being madepursuant to the Care Everywhere program and may not contain all information available regarding this patient. Last updated 18.[facility] Encounters Date Type Department Care Team Description 12/07/2024 Travel 12/07/2024 9:39 AM ESOL TEACHER - 12/07/2024 11:59 PM ESOL TEACHER Hospital Encounter [facility] [address] [place] [phone] aTmia Rangel MD Discharge Disposition: Home or Self Care 11/09/2024 9:43 AM ESOL TEACHER - 11/09/2024 11:59 PM ESOL TEACHER Hospital Encounter [facility] [address] [place] [phone] Head, Shanel Chen MD Discharge Disposition: Home or Self Care 10/26/2024 8:15 AM ESOL TEACHER - 10/26/2024 11:59 PM ESOL TEACHER Hospital Encounter [facility] [address] [place] [phone] Walter Joshi MD Discharge Disposition: Home or Self Care 10/12/2024 9:00 AM ESOL TEACHER - 10/12/2024 11:59 PM ESOL TEACHER Hospital Encounter [facility] [address] [place] [address] Lobito Alexander DO HEALTH ADMINISTRATION TEACHER Discharge Disposition: Home or Self Care 09/28/2024 8:09 AM ESOL TEACHER - 09/28/2024 11:59 PM ESOL TEACHER Hospital Encounter [facility] [address] [place] [address] Tamia Rangel MD Discharge Disposition: Home or Self Care from Last 3 Months Allergies Active Allergy Reactions Criticality Noted Date Comments Augmentin Nausea and/or Vomiting 08/24/2024 Azithromycin Diarrhea 08/24/2024 Cefprozil Diarrhea 08/24/2024 Methylphenidate GAS SHOVEL OPERATOR Dysfunction 08/24/2024 Metoclopramide GAS SHOVEL OPERATOR Dysfunction 08/24/2024 Medications * Be aware that [...] and heating? Not hard at all 09/15/2024 [facility] [place] [facility] - Occupational Stress [...] time in the past 12 m [facility], were you homeless or living in a [place] [facility] care facility (including now)? No 09/15/2024 Estimated Date of Delivery Comme nts Yes 02/28/2025 Based on last me nstrual period of 05/24/2024 Sex and Gender Information Value Date Recorded Sex Assigned at Not on file Gender Identity Not on file Sexual Orientation Not on file Last Filed Vital Signs Vital Sign Reading Time Taken Comments Blood Pressure 151/66 09/15/2024 2:50 PM ESOL TEACHER Pulse 88 09/15/2024 1:53 PM ESOL TEACHER Temperature 37.1 C (98.7 F) 09/15/2024 12:14 PM ESOL TEACHER Respiratory Rate 19 09/15/2024 1:53 PM ESOL TEACHER Oxygen Saturation 98% 09/15/2024 1:29 PM ESOL TEACHER Inhaled Oxygen Concentration - - Weight 159.2 kg (351 lb) 09/15/2024 9:30 AM ESOL TEACHER Height 165.1 cm (5' 5 ) 09/15/2024 9:30 AM ESOL TEACHER Body Mass Index 58.41 09/15/2024 9:30 AM ESOL TEACHER Plan of Treatment Upcoming Encounters Date Type Department Care Team (Late st Contact Info) Description 01/03/2025 8:15 AM ESOL TEACHER Hospital Encounter [facility] [address] [place] [phone] 03/29/2025 Hospital Encounter [facility] [address] [place] [address] Procedures Procedure Name Priority Date/Time Associated Diagnosis Comments SONOGRAM - COMPLETE Routine 12/07/2024 9 :40 AM ESOL TEACHER Antepartum multigravida of advanced maternal age (HCC) History of delivery, currently (HCC) Obesity affecting in second trimester, unspecified obesity type (HCC) Encounter for ultrasound to assess growth ([facility]) Encounter for follow-up ultrasound of anatomy (HCC) 28 weeks gestation of (HCC) SONOGRAM - COMPLETE Routine 11/09/2024 9 :49 AM ESOL TEACHER Antepartum multigravida of advanced maternal age (HCC) Obesity affecting in second trimester, unspecified obesity type (HCC) History of delivery, currently (HCC) 20 weeks gestation of (HCC) Encounter for screening for cervical length (HCC) SONOGRAM - COMPLETE Routine 10/26/2024 8 :17 AM ESOL TEACHER Antepartum multigravida of advanced maternal age (HCC) Obesity affecting in second trimester, unspecified obesity type (HCC) History of delivery, currently (HCC) 20 weeks gestation of (HCC) Encounter for screening for cervical length (HCC) SONOGRAM - COMPLETE Routine 10/12/2024 9 :07 AM ESOL TEACHER Antepartum multigravida of advanced maternal age (HCC) Obesity affecting in second trimester, unspecified obesity type (HCC) History of delivery, currently (HCC) 20 weeks gestation of (HCC) Encounter for screening for cervical length (HCC) SONOGRAM - TRANSVAGINAL Routine 09/28/2024 8:10 AM ESOL TEACHER Antepartum multigravida of advanced maternal age (HCC) Obesity affecting in second trimester, unspecified obesity type (HCC) History of delivery, currently ([facility]) Encounter for screening for cervical length (HCC) 18 weeks gestation of ([facility]) Encounter for anatomic survey ([facility]) from Last 3 Months Results * SONOGRAM - COMPLETE (12/07/2024 9:40 AM ESOL TEACHER) Only the most recent of4 resultswithin the time period is included. Linked Results Indication ======== Incomplete Anatomy Screen Left Complex Adnexal Mass Class III Obesity History of History ====== OB History 4. Para 1 [id number] 1. miscarriage 2. live 2010. Gest. age [...] 3 lb 1 oz EFW by Hadlock ([id number]) appropriate Growth Overview Exam date [place] BPD [...] not be adequately visualized: Heart / Thorax 5-namtas-expwrjt view. Aortic arch view. The following structures [...] complete anatomy and growth Coding ====== Procedures [id number]: US Preg Uterus Follow Up [employer] PACS Anatomical Region Laterality Modality Other 12/07/2024 9:40 AM ESOL TEACHER Viktor Rodriguez MD [facility] ORDERABLES * SONOGRAM - TRANSVAGINAL (09/28/2024 8:10 AM ESOL TEACHER) Linked Results Indication ======== G1: SAB G2: 32 wk 1956 gm, PROM/PTL G3: SAB G4: Current , AMA 37 low-risk cf-DNA, Class III obesity (BMI 56) History ====== OB History 4. Para 1 [id number] Lab Tests Test Date Result NIPT Low [...] length screening is recommended Coding ====== Procedures [id number]: US Uterus Limited 12263: US Preg Uterus Transvaginal [employer] PACS Anatomical Region Laterality Modality Other 09/28/2024 8:10 AM ESOL TEACHER Viktor Rodriguez MD [facility] ORDERABLES from Last 3 Months Jennifer Guzman Personal/Family Self 1985
[2024-12-21 09:45] LABS: Basophils Percent Auto 0.3 % (0.2-1.2); Eosinophils Absolute Auto 0.1 K/mm3 (0-0.3); Eosinophils Percent Auto 0.6 % (0-4.4); Hematocrit 37.7 % (37.0-47.0); Immature Granulocyte Absolute 0.12 K/mm3 (0.00-0.031); Lymphocytes Absolute Auto 2.26 K/mm3 (0.9-3.2); Lymphocytes Percent Auto 19.7 % (18.3-44.2); Mean Corpuscular HGB Conc 34.5 g/dl (32-36); Mean Corpuscular Volume 87.1 fl (80-100); Mean Platelet Volume 8.8 fl (7.4-10.4); Monocytes Absolute Auto 0.6 K/mm3 (0.1-0.6); Neutrophils Absolute Auto 8.4 K/mm3 (1.3-6.7); Neutrophils Percent Auto 73.4 % (45.5-73.1); Platelet Count Result 261 k/mm3 (150-375); Red Blood Count 4.33 M/mm3 (4.2-5.4); Red Cell Distribution Width 12.7 % (11.5-14.5); White Blood Count 11.5 K/mm3 (4.5-10.0)
[2024-12-21 09:55] LABS: Alanine Aminotransferase 20 U/L (6-35); Albumin Level 3.1 g/dL (3.5-5.1); Alkaline Phosphatase 65 U/L (38-126); Anion Gap 11 mmol/L (4-12); Aspartate Amino Transferase 24 U/L (14-36); Bilirubin,Total 0.4 mg/dL (0.2-1.3); Blood Urea Nitrogen 5 mg/dL (7-17); Calcium 8.8 mg/dL (8.4-10.2); Carbon Dioxide 19 mmol/L (22-30); Chloride 107 mmol/L (98-107); Estimated CRCL calculation 307 ml/min; Estimated Glomerular Filt Rate > 60; Glucose 122 mg/dL (65-110); Potassium 3.6 mmol/L (3.4-5.0); Sodium 137 mmol/L (137-145); Uric Acid 4.3 mg/dL (2.5-7.5)
[2024-12-21 10:00] VITALS: BP 149/79; PULSE 86
[2024-12-21 10:03] LABS: Influenza A QL RT-PCR Negative (Negative); Influenza B QL RT-PCR Negative (Negative); SARS-CoV-2 RNA PCR Negative (Negative)
[2024-12-21 10:40] LABS: Creatinine Urine 166.2 mg/dL
[2024-12-21 10:42] LABS: Total Protein Urine Random < 5 mg/dL; Ur Ttl Prot Creatinine Ratio < 0.03 mg/mg (0-0.20)
[2024-12-21 12:30] LABS: Add Urine Microscopic? YES; Appearance Urine Clear (Clear); Bacteria Urine 3+ /hpf; Bilirubin Urine Negative (Negative); Blood Urine Negative (Negative); Calcium Oxalate Crystals Urine Present /hpf; Color Urine Dark Yellow (Yellow); Glucose Urine UA 1+ mg/dL (Negative); Ketones Urine Trace mg/dL (Negative); Leukocyte Esterase Ur Trace LEU/UL (Negative); Mucus Urine Present /lpf; Need Manual Microscopic Reviewed; Nitrate Urine Negative (Negative); Non Pathogenic Casts 0-2; Protein Urine Trace mg/dL (Negative); RBC Urine 0-2 /hpf (0-2); Specific Grav Ur 1.029 (1.001-1.035); Squamous Epithelial Cell Urine Moderate /hpf (Few); Urobilinogen Urine 0.2 mg/dL (<2.0); WBC Urine 0-5 /hpf (0-3); pH Urine 5.5 (5.0-9.0)
== END 2024-12-21 11:40 | disposition home or self-care (01) ==
LOC: ANHOBOP 09:00 → ANHOBPP 09:02
PROVIDERS: Visit Provider Obstetrics & Gynecology
DX: O13.9 Gestational [pregnancy-induced] hypertension without significant proteinuria, unspecified trimester (principal); Z3A.00 Weeks of gestation of pregnancy not specified
CPT/HCPCS: 36415; 59025; 76815; 76819; 80053; 81001; 82570; 84156; 84550; 85025; 87636; 99199

== ENCOUNTER 2025-01-04 07:44 | Outpatient (CLI) | payer OTHER, SELFPAY ==
--- OUTSIDE RECORDS SUMMARY | 2025-01-04 07:47 | XMS_ITS | Patient Health Summary ---
Author Organization [facility] Address [address] [place] [address] Care Team Providers Care Mental Health Social Worker Name Role Phone Unavailable Primary Care Provider Unavailabl e Note from [facility],non-owned Affiliates and Associated Physician Practices is amultiple site organization consisting of ambulatory clinics and hospital sitesin [place], [place], [place] and [place]. This disclosure is being madepursuant to the Care Everywhere program and may not contain all information available regarding this patient. Last updated 18.[facility] Allergies * Augmentin(Nausea and/or Vomiting) * Azithromycin(Diarrhea) * Cefprozil(Diarrhea) * Methylphenidate(SALES AND DISTRIBUTION CLERK Dysfunction) * Metoclopramide(SALES AND DISTRIBUTION CLERK Dysfunction) Medications * Be aware that medications [...] and heating? Not hard at all 09/15/2024 [facility] [place] of Occupat ional Health - Occupational Stress [...] any time in the past 12 m [facility], were you homeless or living in a detention (including now)? No 09/15/2024 Estimated Date of Delivery Comme nts Yes 02/28/2025 Based on last me nstrual period of 05/24/2024 Sex and Gender Information Value Date Recorded Sex Assigned at Not on file Gender Identity Not on file Sexual Orientation Not on file Last Filed Vital Signs Vital Sign Reading Time Taken Comments Blood Pressure 151/66 09/15/2024 2:50 PM METALLURGICAL INSPECTOR Pulse 88 09/15/2024 1:53 PM METALLURGICAL INSPECTOR Temperature 37.1 C (98.7 F) 09/15/2024 12:14 PM METALLURGICAL INSPECTOR Respiratory Rate 19 09/15/2024 1:53 PM METALLURGICAL INSPECTOR Oxygen Saturation 98% 09/15/2024 1:29 PM METALLURGICAL INSPECTOR Inhaled Oxygen Concentration - - Weight 159.2 kg (351 lb) 09/15/2024 9:30 AM METALLURGICAL INSPECTOR Height 165.1 cm (5' 5 ) 09/15/2024 9:30 AM METALLURGICAL INSPECTOR Body Mass Index 58.41 09/15/2024 9:30 AM METALLURGICAL INSPECTOR Procedures * SONOGRAM - COMPLETE(Performed 01/03/2025) Performed for Antepartum multigravida of advanced maternal age (HCC), History of delivery, currently (HCC), Obesity affecting in second trimester, unspecified obesity type (HCC), Encounter for ultrasound to assess growth ([facility]), Encounter for follow-up ultrasound of anatomy ([facility]), 28 weeks gestation of ([facility]) * SONOGRAM - COMPLETE(Performed 12/07/2024) Performed for Antepartum multigravida of advanced maternal age (HCC), History of delivery, currently (HCC), Obesity affecting in second trimester, unspecified obesity type (HCC), Encounter for ultrasound to assess growth (HCC), Encounter for follow-up ultrasound of anatomy ([facility]), 28 weeks gestation of (HCC) * SONOGRAM - COMPLETE(Performed 11/09/2024) Performed for Antepartum multigravida of advanced maternal age (HCC), Obesity affecting in second trimester, unspecified obesity type (HCC), History of delivery, currently (HCC), 20 weeks gestation of (HCC), Encounter for screening for cervical length ([facility]) * SONOGRAM - COMPLETE(Performed 10/26/2024) Performed for Antepartum multigravida of advanced maternal age (HCC), Obesity affecting in second trimester, unspecified obesity type (HCC), History of delivery, currently (HCC), 20 weeks gestation of (HCC), Encounter for screening for cervical length ([facility]) * SONOGRAM - COMPLETE(Performed 10/12/2024) Performed for Antepartum multigravida of advanced maternal age (HCC), Obesity affecting in second trimester, unspecified obesity type (HCC), History of delivery, currently (HCC), 20 weeks gestation of (HCC), Encounter for screening for cervical length ([facility]) * SONOGRAM - TRANSVAGINAL(Performed 09/28/2024) Performed for Antepartum multigravida of advanced maternal age (HCC), Obesity affecting in second trimester, unspecified obesity type (HCC), History of delivery, currently (HCC), Encounter for screening for cervical length ([facility]), 18 weeks gestation of ([facility]), Encounter for anatomic survey ([facility]) * URINE MICROSCOPIC ONLY REFLEX TO CULTURE(Performed 09/15/2024) Performed for Chronic hypertension affecting ([facility]) * PROTEIN CREATININE RATIO URINE RANDOM PNL(Performed 09/15/2024) Performed for Chronic hypertension affecting ([facility]) * URINALYSIS REFLEX MICROSCOPIC REFLEX CULTURE(Performed 09/15/2024) [...] present (HCC) Results * SONOGRAM - COMPLETE (01/03/2025 8:02 AM METALLURGICAL INSPECTOR) Only the most recent of7 resultswithin the time period is included. Linked Results Indication ======== Incomplete Anatomy Screen Left Complex Adnexal Mass Class III Obesity History of Failed GCT, awaiting GTT results History ====== OB History 4. Para 1 [id number] 1. miscarriage 2. live 2010. Gest. age 32 w + 5 d. Weight 1,956 g. Details: PPROM/PTL 3. miscarriage Lab Tests Test Date Result NIPT Low risk Maternal Assessment Physical Exam Height 168 cm, 5 ft 6 in. Weight 163 kg, 360 lb. Initial weight 160 kg, 353 lb. BMI 58.11 kg/m . Initial BMI 56.98 kg/m . Weight gain 3 kg, 7 lb Method ====== Transabdominal ultrasound. View: limited secondary to challenging acoustic properties ========= Meier . Number of fetuses: 1 Dating ====== Date Details Gest. age RAMU LMP 05/24/2024 32 w + 0 d 02/28/2025 Stated RAMU 32 w + 0 d 02/28/2025 U/S 01/03/2025 based upon AC, BPD, Femur, HC 34 w + 0 d 02/14/2025 Assigned dating based on the LMP, selected on 09/15/2024 32 w + 0 d 02/28/2025 General Evaluation Cardiac activity present. FHR 145 bpm. Presentation: cephalic Placenta: Placental site: anterior Amniotic fluid: Amount of AF: normal. MVP 5.5 cm. RAZ 9.8 cm. Q1 5.5 cm, Q2 1.3 cm, Q3 0.0 cm, Q4 3.1 cm Biometry BPD 86.0 mm 34w 5d 97% Hadlock HC 320.1 mm 36w 1d 97% Hadlock AC 291.3 mm 33w 1d 80% Hadlock Femur 61.9 mm 32w 1d 39% Hadlock Humerus 57.2 mm 33w 2d 82% Julio HC / AC 1.10 Weight Calculation: EFW 2,155 g 78% Hadlock EFW (lb,oz) 4 lb 12 oz EFW by Hadlock ([id number]) appropriate Growth Overview Exam date GA BPD [...] 75% 55.2 64% 48.4 52% 1378 81% 01/03/2025 32w 0d 86 97% 320.1 97% 291.3 80% 61.9 39% 57.2 82% 2155 78% Anatomy The following structures appear normal: Heart / Thorax 7-goxxri-uykiwyl view. Aortic arch view. Abdomen Stomach. Kidneys. Bladder. The following structures were documented previously: Head / Neck Cranium. Lateral ventricles. Choroid plexus. Midline falx. Cavum septi pellucidi. Cerebellum. Cisterna magna. Thalami. Face Lips. Profile. Nose. Nasal bone. Orbits. Heart / Thorax 4-chamber view. RVOT view. LVOT view. 3-vessel view. Situs. Bicaval view. Ductal arch view. Great vessels. Right lung. Left lung. Diaphragm. Abdomen Cord insertion. Bowel. Genitals. Spine Cervical spine. Thoracic spine. Lumbar spine. Sacral spine. Extremities / Skeleton Arms. Hands. Legs. Feet. sex: male. Maternal Structures Right Ovary Not visualized Left Ovary Abnormal Left Adnexal Mass Findings: cystic contents with low-level echogenicity and calcifications. Size 76.0 mm x 38.0 mm x 51.0 mm. Mean 55.0 mm. Vol 77.120 cm Impression ========= Single, live, intrauterine at 32w 0d size is appropriate Amniotic fluid volume: normal No major malformations were seen within the limitations of ultrasound Complex left adnexal mass measures 76 x 38 x 51 mm- bigger than last exam Follow-up ======== Follow up ultrasound in 4 weeks for growth assessment, adnexal status and to begin weekly BPP/NST due to maternal obesity Coding ====== Procedures 06057: US Preg Uterus Follow Up [employer] PACS Anatomical Region Laterality Modality Other 01/03/2025 8:02 AM METALLURGICAL INSPECTOR Viktor Rodriguez MD [facility] ORDERABLES * SONOGRAM - TRANSVAGINAL (09/28/2024 8:10 AM METALLURGICAL INSPECTOR) Linked Results Indication ======== G1: SAB G2: 32 wk 1956 gm, PROM/PTL G3: SAB G4: Current , AMA 37 low-risk cf-DNA, Class III obesity (BMI 56) History ====== OB History 4. Para 1 [id number] Lab Tests Test Date Result NIPT Low [...] length screening is recommended Coding ====== Procedures 35598: US Uterus Limited 17979: US Preg Uterus Transvaginal [facility] [employer] PACS Anatomical Region Laterality Modality Other 09/28/2024 8:10 AM METALLURGICAL INSPECTOR Viktor Rodriguez MD [facility] ORDERABLES * URINE MICROSCOPIC ONLY REFLEX TO CULTURE (09/15/2024 2:23 PM METALLURGICAL INSPECTOR) Reflex Status Culture to follow 09/15/2024 2:51 PM METALLURGICAL INSPECTOR [facility] RBC UA 3-5 0 - 5 # /hpf 09/15/2024 2:51 PM METALLURGICAL INSPECTOR [facility] WBC UA 0-5 0 - 5 # /hpf 09/15/2024 2:51 PM METALLURGICAL INSPECTOR [facility] Bacteria UA None Seen None Seen 09/15/2024 2:51 PM METALLURGICAL INSPECTOR [facility] Squamous Epithelial Cells 3-5 0 - 5 /hpf 09/15/2024 2:51 PM METALLURGICAL INSPECTOR [facility] Mucus UA 1+ /LPF 09/15/2024 2:51 PM METALLURGICAL INSPECTOR [facility] Urine URINE SPECIMEN OBTAINED BY CLEAN CATCH PROCEDURE / Unknown Collection / Unknown 09/15/2024 2:23 PM METALLURGICAL INSPECTOR 09/15/2024 2:30 PM METALLURGICAL INSPECTOR Narrative [facility] - 09/15/2024 2:51 PM METALLURGICAL INSPECTOR Shanel Cast MD LAB - URINALYSIS ORD ERABLES [facility] [address] [place] [address] * (ABNORMAL) URINALYSIS REFLEX MICROSCOPIC REFLEX CULTURE (09/15/2024 2:23 PM METALLURGICAL INSPECTOR) Color UA Yellow Straw, Yellow 09/15/2024 2:47 PM METALLURGICAL INSPECTOR [facility] Clarity UA Slt Cloudy(A) Clear 09/15/2024 2:47 PM METALLURGICAL INSPECTOR [facility] Glucose UA Negative Negative 09/15/2024 2:47 PM METALLURGICAL INSPECTOR [facility] Bilirubin UA Negative Negative 09/15/2024 2:47 PM METALLURGICAL INSPECTOR [facility] Ketone UA 1+(A) Negative 09/15/2024 2:47 PM METALLURGICAL INSPECTOR [facility] Specific [place] UA 1.029 1.005 - 1.030 09/15/2024 2:47 PM METALLURGICAL INSPECTOR [facility] Blood UA Negative Negative 09/15/2024 2:47 PM METALLURGICAL INSPECTOR [facility] pH UA 5.0 5.0 - 8.0 pH 09/15/2024 2:47 PM METALLURGICAL INSPECTOR [facility] Protein UA 1+(A) Negative 09/15/2024 2:47 PM METALLURGICAL INSPECTOR [facility] Urobilinogen UA Negative Negative mg/dL 09/15/2024 2:47 PM METALLURGICAL INSPECTOR [facility] Nitrite UA Negative Negative 09/15/2024 2:47 PM METALLURGICAL INSPECTOR [facility] Leukocyte UA Trace(A) Negative 09/15/2024 2:47 PM METALLURGICAL INSPECTOR [facility] Urine Microscopy Urine microscopy to follow 09/15/2024 2:47 PM METALLURGICAL INSPECTOR [facility] Reflex Status Culture to follow 09/15/2024 2:47 PM [facility] Urine URINE SPECIMEN OBTAINED BY CLEAN CATCH PROCEDURE / Unknown Collection / Unknown 09/15/2024 2:23 PM METALLURGICAL INSPECTOR 09/15/2024 2:30 PM METALLURGICAL INSPECTOR Narrative [facility] - 09/15/2024 2:47 PM METALLURGICAL INSPECTOR Ascorbic Acid can cause false negative urine strip tests for blood, glucose, nitrite, and bilirubin. Shanel Cast MD LAB - URINALYSIS ORD ERABLES Performing Organization Address City/[facility]/ZIP Co de Phone Number [facility] [address] [place] [address] * CULTURE URINE (09/15/2024 2:23 PM METALLURGICAL INSPECTOR) Pathologist [facility] Culture Urine <10,000 CFU/mL urogenital evgeny REYES 09/16/2024 9:43 PM METALLURGICAL INSPECTOR [facility] Urine URINE SPECIMEN OBTAINED BY CLEAN CATCH PROCEDURE / Unknown Collection / Unknown 09/15/2024 2:23 PM METALLURGICAL INSPECTOR 09/15/2024 2:30 PM METALLURGICAL INSPECTOR Narrative Authorizing Provider Result Rebeca Cast MD LAB - MICROBIOLOGY O RDERABLES Performing Organization Address [facility] Co de Phone Number [facility] [address] [place] [address], [facility] [phone] * (ABNORMAL) PROTEIN CREATININE RATIO URINE RANDOM PNL (09/15/2024 2:23 PM METALLURGICAL INSPECTOR) Pathologist [facility] Protein Urine 16.6(H) <11.9 mg/dL 09/15/2024 3:02 PM METALLURGICAL INSPECTOR [facility] Creatinine Urine 194.48 mg/dL 09/15/2024 3:02 PM METALLURGICAL INSPECTOR [facility] Protein/Creatin ine Ratio Urine 0.09 09/15/2024 3:02 PM METALLURGICAL INSPECTOR [facility] Urine URINE SPECIMEN OBTAINED BY CLEAN CATCH PROCEDURE / Unknown Collection / Unknown 09/15/2024 2:23 PM METALLURGICAL INSPECTOR 09/15/2024 2:29 PM METALLURGICAL INSPECTOR Narrative Authorizing Provider Result Rebeca Cast MD LAB - URINE CHEMISTR Y ORDERABLES Performing Organization Address City/[facility]/ZIP Co de Phone Number [facility] [address] [place], [place] [id number] * RESPIRATORY PANEL WITH SARS-COV-2 BY PCR (STL) (09/15/2024 2:13 PM METALLURGICAL INSPECTOR) Pathologist [facility] Adenovirus PCR Not detected Not detected 09/15/2024 7:39 PM METALLURGICAL INSPECTOR [facility] Coronavirus 229E PCR Not detected Not detected 09/15/2024 7:39 PM METALLURGICAL INSPECTOR [facility] Coronavirus HKU1 PCR Not detected Not detected 09/15/2024 7:39 PM METALLURGICAL INSPECTOR [facility] Coronavirus NL63 PCR Not detected Not detected 09/15/2024 7:39 PM METALLURGICAL INSPECTOR [facility] Coronavirus OC43 PCR Not detected Not detected 09/15/2024 7:39 PM METALLURGICAL INSPECTOR [facility] COVID-19 PCR Not detected Not detected 09/15/2024 7:39 PM METALLURGICAL INSPECTOR [facility] Human Metapneumovirus PCR Not detected Not detected 09/15/2024 7:39 PM METALLURGICAL INSPECTOR [facility] Human Rhinovirus/Enterov irus PCR Not detected Not detected 09/15/2024 7:39 PM METALLURGICAL INSPECTOR [facility] Influenza A PCR Not detected Not detected 09/15/2024 7:39 PM METALLURGICAL INSPECTOR [facility] Influenza B PCR Not detected Not detected 09/15/2024 7:39 PM METALLURGICAL INSPECTOR [facility] Parainfluenza Virus 1 PCR Not detected Not detected 09/15/2024 7:39 PM METALLURGICAL INSPECTOR [facility] Parainfluenza Virus 2 PCR Not detected Not detected 09/15/2024 7:39 PM METALLURGICAL INSPECTOR [facility] Parainfluenza Virus 3 PCR Not detected Not detected 09/15/2024 7:39 PM METALLURGICAL INSPECTOR [facility] Parainfluenza Virus 4 PCR Not detected Not detected 09/15/2024 7:39 PM METALLURGICAL INSPECTOR [facility] Respiratory Syncytial Virus PCR Not detected Not detected 09/15/2024 7:39 PM METALLURGICAL INSPECTOR [facility] Bordetella parapertussis PCR Not detected Not detected 09/15/2024 7:39 PM METALLURGICAL INSPECTOR [facility] Bordetella pertussis PCR Not detected Not detected 09/15/2024 7:39 PM METALLURGICAL INSPECTOR [facility] Chlamydia pneumoniae PCR Not detected Not detected 09/15/2024 7:39 PM METALLURGICAL INSPECTOR [facility] Mycoplasma pneumoniae PCR Not detected Not detected 09/15/2024 7:39 PM METALLURGICAL INSPECTOR [facility] Microbiology SPECIMEN FROM NASOPHARYNGEAL STRUCTURE / Unknown Collection / Unknown 09/15/2024 2:13 PM METALLURGICAL INSPECTOR 09/15/2024 2:19 PM METALLURGICAL INSPECTOR Narrative [facility] - 09/15/2024 7:39 PM METALLURGICAL INSPECTOR This nucleic amplification assay has received FDA authorization via the [place] [employer]. Shanel Cast MD LAB - MICROBIOLOGY O RDERABLES [facility] [address] [facility] [address], [facility] [phone] * (ABNORMAL) CBC W AUTO DIFFERENTIAL (09/15/2024 12:38 PM METALLURGICAL INSPECTOR) WBC 11.6(H) 4.0 - 10.7 x10E9/L 09/15/2024 12:44 PM METALLURGICAL INSPECTOR [facility] RBC Count 4.64 3.90 - 5.20 x10E12/L 09/15/2024 12:44 PM [facility] Hemoglobin 13.6 11.9 - 15.8 g/dL 09/15/2024 12:44 PM [facility] Hematocrit 39.7 34.8 - 46.1 % 09/15/2024 12:44 PM [facility] MCV 85.6 80.0 - 98.0 fL 09/15/2024 12:44 PM [facility] MCH 29.3 26.7 - 33.6 pg 09/15/2024 12:44 PM [facility] MCHC 34.3 31.7 - 36.3 g/dL 09/15/2024 12:44 PM [facility] RDW-CV 11.7 11.3 - 14.8 % 09/15/2024 12:44 PM [facility] Platelet Count 307 150 - 420 x10E9/L 09/15/2024 12:44 PM [facility] MPV 8.5 7.8 - 11.4 fL 09/15/2024 12:44 PM [facility] Neutrophil % 68.6 41.0 - 74.0 % 09/15/2024 12:44 PM [facility] Lymphocyte % 23.2 17.0 - 47.0 % 09/15/2024 12:44 PM [facility] Monocyte % 5.9 3.0 - 11.0 % 09/15/2024 12:44 PM [facility] Eosinophil % 1.2 0.0 - 7.0 % 09/15/2024 12:44 PM [facility] Basophil % 0.3 0.0 - 1.6 % 09/15/2024 12:44 PM [facility] Immature Granulocytes % 0.8 0.0 - 1.0 % 09/15/2024 12:44 PM [facility] Neutrophil Absolute 7.94(H) 1.60 - 7.50 x10E9/L 09/15/2024 12:44 PM [facility] Lymphocyte Absolute 2.69 1.00 - 4.40 x10E9/L 09/15/2024 12:44 PM [facility] Monocyte Absolute 0.68 0.15 - 1.00 x10E9/L 09/15/2024 12:44 PM [facility] Eosinophil Absolute 0.14 0.00 - 0.60 x10E9/L 09/15/2024 12:44 PM [facility] Basophil Absolute 0.04 0.00 - 0.13 x10E9/L 09/15/2024 12:44 PM [facility] Blood BLOOD SPECIMEN / Unknown Venipuncture / Unknown 09/15/2024 12:38 PM METALLURGICAL INSPECTOR 09/15/2024 12:41 PM METALLURGICAL INSPECTOR Shanel Chen Head LAB - HEMATOLOGY ORD ERABLES [facility] [address] [place] [address] * (ABNORMAL) COMPREHENSIVE METABOLIC PANEL (09/15/2024 12:38 PM METALLURGICAL INSPECTOR) Glucose 81 70 - 99 mg/dL 09/15/2024 1:03 PM [facility] Sodium 137 136 - 145 mmol/L 09/15/2024 1:03 PM [facility] Potassium 3.8 3.5 - 5.1 mmol/L 09/15/2024 1:03 PM [facility] Chloride 110(H) 98 - 107 mmol/L 09/15/2024 1:03 PM [facility] CO2 18(L) 22 - 29 mmol/L 09/15/2024 1:03 PM [facility] Calcium 9.1 8.4 - 10.4 mg/dL 09/15/2024 1:03 PM [facility] Anion Gap 9 6 - 16 mmol/L 09/15/2024 1:03 PM [facility] BUN 6 5.3 - 18.7 mg/dL 09/15/2024 1:03 PM [facility] Creatinine 0.52(L) 0.57 - 1.11 mg/dL 09/15/2024 1:03 PM [facility] Alkaline Phosphatase 42 40 - 150 U/L 09/15/2024 1:03 PM [facility] ALT 14 0 - 55 U/L 09/15/2024 1:03 PM [facility] AST 14 5 - 34 U/L 09/15/2024 1:03 PM [facility] Protein Total 6.9 6.4 - 8.3 gm/dL 09/15/2024 1:03 PM [facility] Albumin 2.8(L) 3.4 - 5.0 gm/dL 09/15/2024 1:03 PM [facility] Bilirubin Total 0.2 0.2 - 1.2 mg/dL 09/15/2024 1:03 PM [facility] eGFR by CKD-EPI >90 >=90 mL/min/1.7 3 m2 09/15/2024 1:03 PM [facility] Blood BLOOD SPECIMEN / Unknown Venipuncture / Unknown 09/15/2024 12:38 PM METALLURGICAL INSPECTOR 09/15/2024 12:41 PM METALLURGICAL INSPECTOR Shanel Chen Head LAB - CHEMISTRY ROSARIO DURÁN Performing Organization Address City/State/[facility] Co de Phone Number [facility] [address] [place] [address]
--- OUTSIDE RECORDS SUMMARY | 2025-01-04 07:47 | XMS_ITS | Clinical Summary ---
Author Organization [facility] Address Formerly [facility], [id number] [place] [address] Care Team Providers Care Media Intern Name Role Phone Yvon Crook MD Primary Care Provider [phone] Allergies Active Allergy Reactions Criticality Noted Date [...] Comments Blood Pressure 131/72 09/12/2024 12:25 PM MANAGER UTILITY Pulse 70 09/12/2024 12:25 PM MANAGER UTILITY Temperature 36.7 C (98 F) 09/12/2024 12:25 PM MANAGER UTILITY Respiratory Rate 22 09/12/2024 12:25 PM MANAGER UTILITY Oxygen Saturation 95% 09/12/2024 12:25 PM MANAGER UTILITY Inhaled Oxygen Concentration - - Weight 159.2 kg (351 lb) 09/12/2024 11:02 AM MANAGER UTILITY Height 165.1 cm (5' 5 ) 09/12/2024 11:02 AM MANAGER UTILITY Body Mass Index 58.41 09/12/2024 11:02 AM MANAGER UTILITY Plan of Treatment Health Maintenance Due Date [...] to complete this topic Insurance Care Teams Media Intern Relationship Specialty Start Date End Date Yvon Crook MD [address] [place] [address] PCP - General FAMILY PRACTICE 12/18/22
--- OUTSIDE RECORDS SUMMARY | 2025-01-04 07:47 | XMS_ITS | Referral Summary ---
Author Organization [facility] Address [address] [place] [address] Care Team Providers Care Business Process Expert Name Role Phone Unavailable Primary Care Provider Unavailabl e Source Comments [facility],non-owned Affiliates and Associated Physician Practices is amultiple site organization consisting of ambulatory clinics and hospital sitesin [place], [place], [place] and [place]. This disclosure is being madepursuant to the Care Everywhere program and may not contain all information available regarding this patient. Last updated 18.[facility] Encounters Date Type Department Care Team Description 01/03/2025 8:09 AM FIBERGLASS INSULATION INSTALLER - 01/03/2025 11:59 PM FIBERGLASS INSULATION INSTALLER Hospital Encounter [facility] [address] [id number] Cruz Tracy MD Discharge Disposition: Home or Self Care 12/07/2024 Travel 12/07/2024 9:39 AM FIBERGLASS INSULATION INSTALLER - 12/07/2024 11:59 PM FIBERGLASS INSULATION INSTALLER Hospital Encounter [facility] [address] [place] [address] Tamia Rangel MD Discharge Disposition: Home or Self Care 11/09/2024 9:43 AM FIBERGLASS INSULATION INSTALLER - 11/09/2024 11:59 PM FIBERGLASS INSULATION INSTALLER Hospital Encounter [facility] [address] [place] [address] Shanel Cast MD Discharge Disposition: Home or Self Care 10/26/2024 8:15 AM FIBERGLASS INSULATION INSTALLER - 10/26/2024 11:59 PM FIBERGLASS INSULATION INSTALLER Hospital Encounter [facility] [address] [place] [address] Walter Joshi MD Discharge Disposition: Home or Self Care 10/12/2024 9:00 AM FIBERGLASS INSULATION INSTALLER - 10/12/2024 11:59 PM FIBERGLASS INSULATION INSTALLER Hospital Encounter [facility] [address] [place] [address] Lobito Alexander DO OPTICAL ADVISOR Discharge Disposition: Home or Self Care from Last 3 Months Allergies Active Allergy Reactions Criticality Noted Date Comments Augmentin Nausea and/or Vomiting 08/24/2024 Azithromycin Diarrhea 08/24/2024 Cefprozil Diarrhea 08/24/2024 Methylphenidate SUPERVISOR CUSTOMER SERVICES Dysfunction 08/24/2024 Metoclopramide SUPERVISOR CUSTOMER [employer] Dysfunction 08/24/2024 Medications * Be aware [...] and heating? Not hard at all 09/15/2024 [facility] Occupat ional Health - Occupational Stress [...] any time in the past 12 m [facility], were you homeless or living in a jail (including now)? No 09/15/2024 Estimated Date of Delivery Comme nts Yes 02/28/2025 Based on last me nstrual period of 05/24/2024 Sex and Gender Information Value Date Recorded Sex Assigned at Not on file Gender Identity Not on file Sexual Orientation Not on file Last Filed Vital Signs Vital Sign Reading Time Taken Comments Blood Pressure 151/66 09/15/2024 2:50 PM FIBERGLASS INSULATION INSTALLER Pulse 88 09/15/2024 1:53 PM FIBERGLASS INSULATION INSTALLER Temperature 37.1 C (98.7 F) 09/15/2024 12:14 PM FIBERGLASS INSULATION INSTALLER Respiratory Rate 19 09/15/2024 1:53 PM FIBERGLASS INSULATION INSTALLER Oxygen Saturation 98% 09/15/2024 1:29 PM FIBERGLASS INSULATION INSTALLER Inhaled Oxygen Concentration - - Weight 159.2 kg (351 lb) 09/15/2024 9:30 AM FIBERGLASS INSULATION INSTALLER Height 165.1 cm (5' 5 ) 09/15/2024 9:30 AM FIBERGLASS INSULATION INSTALLER Body Mass Index 58.41 09/15/2024 9:30 AM FIBERGLASS INSULATION INSTALLER Plan of Treatment Upcoming Encounters Date Type Department Care Team (Late st Contact Info) Description 03/29/2025 Hospital Encounter [facility] [address] [place] [address] Procedures Procedure Name Priority Date/Time Associated Diagnosis Comments SONOGRAM - COMPLETE Routine 01/03/2025 8:02 AM FIBERGLASS INSULATION INSTALLER Antepartum multigravida of advanced maternal age (HCC) History of delivery, currently (HCC) Obesity affecting in second trimester, unspecified obesity type (HCC) Encounter for ultrasound to assess growth (HCC) Encounter for follow-up ultrasound of anatomy (HCC) 28 weeks gestation of (HCC) SONOGRAM - COMPLETE Routine 12/07/2024 9:40 AM FIBERGLASS INSULATION INSTALLER Antepartum multigravida of advanced maternal age (HCC) History of delivery, currently (HCC) Obesity affecting in second trimester, unspecified obesity type (HCC) Encounter for ultrasound to assess growth (HCC) Encounter for follow-up ultrasound of anatomy (HCC) 28 weeks gestation of (HCC) SONOGRAM - COMPLETE Routine 11/09/2024 9:49 AM FIBERGLASS INSULATION INSTALLER Antepartum multigravida of advanced maternal age (HCC) Obesity affecting in second trimester, unspecified obesity type (HCC) History of delivery, currently (HCC) 20 weeks gestation of (HCC) Encounter for screening for cervical length (HCC) SONOGRAM - COMPLETE Routine 10/26/2024 8:17 AM FIBERGLASS INSULATION INSTALLER Antepartum multigravida of advanced maternal age (HCC) Obesity affecting in second trimester, unspecified obesity type (HCC) History of delivery, currently (HCC) 20 weeks gestation of (HCC) Encounter for screening for cervical length (HCC) SONOGRAM - COMPLETE Routine 10/12/2024 9:07 AM FIBERGLASS INSULATION INSTALLER Antepartum multigravida of advanced maternal age (HCC) Obesity affecting in second trimester, unspecified obesity type (HCC) History of delivery, currently (HCC) 20 weeks gestation of ([facility]) Encounter for screening for cervical length ([facility]) from Last 3 Months Results * SONOGRAM - COMPLETE (01/03/2025 8:02 AM FIBERGLASS INSULATION INSTALLER) Only the most recent of5 resultswithin the time period is included. Linked Results Indication ======== Incomplete Anatomy Screen Left Complex Adnexal Mass Class III Obesity History of Failed GCT, awaiting GTT results History ====== OB History 4. Para 1 [id number] 1. miscarriage 2. live 2010. Gest. age [...] 4 lb 12 oz EFW by Hadlock ([id number]) appropriate Growth Overview Exam date [place] BPD [...] following structures appear normal: Heart / Thorax 0-znvbyo-znkqkkv view. Aortic arch view. Abdomen Stomach. Kidneys. [...] due to maternal obesity Coding ====== Procedures 97772: [place] Preg Uterus Follow Up [facility] PACS Anatomical Region Laterality Modality Other 01/03/2025 8:02 AM FIBERGLASS INSULATION INSTALLER Viktor Rodriguez MD [facility] ORDERABLES from Last 3 Months Jennifer Guzman Personal/Family Self 1985
--- OUTSIDE RECORDS SUMMARY | 2025-01-04 07:47 | XMS_ITS | Encounter Summary ---
Author Organization [facility] Address [address] [address] Care Team Providers Care Interlocker Maintainer Name Role Phone Unavailable Primary Care Provider Unavailabl e Reason for Referral * (Routine) - Open Specialty Diagnoses / Procedures Referred By Contac t Referred To Contact Diagnoses Antepartum multigravida of advanced maternal age (HCC) History of delivery, currently (HCC) Obesity affecting in second trimester, unspecified obesity type (HCC) Encounter for ultrasound to assess growth (HCC) Encounter for follow-up ultrasound of anatomy ([facility]) 28 weeks gestation of (HCC) Procedures SONOGRAM - COMPLETE Viktor Rodriguez MD [address] [address] [address] [place] [address] Referral ID Status Reason Start Date Expiration Date Visits Re quested Visits Authorized [id number] Open 11/30/2024 11/30/2025 3 3 L DIE FINISHER Reason for Visit * Reason Comments Ultrasound Encounter Details Date Type Department Care Team (Latest Contact Info) Description 01/03/2025 8:09 AM METAL DIE FINISHER - 01/03/2025 11:59 PM METAL DIE FINISHER Hospital Encounter [facility] [address] [place] [address] Cruz Tracy MD [address] [place] [address] Discharge Disposition: Home or Self Care Social History Tobacco Use Types Packs/Day Years Used Date Smoking Tobacco: Never Smokeless Tobacco: Never Alcohol Use Standard Drinks/Week Comments Not Currently 0 (1 standard drink = 0.6 oz pur e alcohol) Overall Financial Resource Strain (CARDIA) Answe r Date Recorded How hard is it for you to pa y for the very basics like food, housing, medical care, and heating? Not hard at all 09/15/2024 [facility]at [facility] - Occupational Stress Questionnaire Answer Date Recorded [...] any time in the past 12 m [facility], were you homeless or living in a correction (including now)? No 09/15/2024 Estimated Date of Delivery Comme nts Yes 02/28/2025 Based on last me nstrual period of 05/24/2024 Sex and Gender Information Value Date Recorded Sex Assigned at Not on file Gender Identity Not on file Sexual Orientation Not on file documented as of this encounter Medications at Time of Discharge Medication Sig Dispensed Refills Start Date End Date aspirin EC (Ecotrin) 81 MG tablet Take 2 (two) tablets by mouth once daily budesonide-formoterol (Symbicort) 80-4.5 MCG/ACT inhaler Inhale 2 (two) puffs by mouth 2 times daily 10.2 g 1 09/15/2024 famotidine (Pepcid) 20 MG tablet Take 1 (one) tablet by mouth every 12 hours 30 tablet 2 09/15/2024 guaiFENesin ER 12hr (Mucinex) 600 MG tablet Take 1 (one) tablet by mouth every 12 hours NIFEdipine CR osmotic 24hr (Procardia-XL) 30 MG tablet Take 1 (one) tablet by mouth once daily 30 tablet 2 09/15/2024 Vit-Fe Fumarate-FA ( vitamin) 28-0.8 MG tablet Take 1 (one) tablet by mouth once daily documented as of this encounter Plan of Treatment Upcoming Encounters Date Type Department Care Team (Late st Contact Info) Description 03/29/2025 Hospital Encounter [facility] [address] [place] [address] documented as of this encounter Procedures Procedure Name Priority Date/Time Associated Diagnosis Comments SONOGRAM - COMPLETE Routine 01/03/2025 8:02 AM METAL DIE FINISHER Antepartum multigravida of advanced maternal age (HCC) History of delivery, currently ([facility]) Obesity affecting in second trimester, unspecified obesity type ([facility]) Encounter for ultrasound to assess growth ([facility]) Encounter for follow-up ultrasound of anatomy ([facility]) 28 weeks gestation of ([facility]) documented in this encounter Results * SONOGRAM - COMPLETE (01/03/2025 8:02 AM METAL DIE FINISHER) Linked Results Indication ======== Incomplete Anatomy Screen Left Complex Adnexal Mass Class III Obesity History of Failed GCT, awaiting GTT results History ====== OB History 4. Para 1 [id number] 1. miscarriage 2. live 2010. Gest. age [...] 4 lb 12 oz EFW by Hadlock ([id number]) appropriate Growth Overview Exam date [place] BPD [...] following structures appear normal: Heart / Thorax 5-pldmgc-dwqrbrh view. Aortic arch view. Abdomen Stomach. Kidneys. [...] due to maternal obesity Coding ====== Procedures [id number]: [place] Preg Uterus Follow Up [employer] PACS Anatomical Region Laterality Modality Other 01/03/2025 8:02 AM METAL DIE FINISHER Viktor Rodriguez MD [facility] ORDERABLES documented in this encounter Visit Diagnoses Diagnosis Antepartum multigravida of advanced maternal age ([facility])- Primary History of delivery, currently ([facility]) with history of pre-term labor Obesity affecting in second trimester, unspecified obesity type ([facility]) Encounter for ultrasound to assess growth ([facility]) Encounter for follow-up ultrasound of anatomy ([facility]) 31 weeks gestation of ([facility]) state, incidental 28 weeks gestation of ([facility]) state, incidental documented in this encounter
--- OUTSIDE RECORDS SUMMARY | 2025-01-04 07:47 | XMS_ITS | Clinical Summary ---
Author Organization [facility] [employer] Address [address] [place] [address] Care Team Providers Care Veterans' Coordinator Name Role Phone Unavailable Primary Care Provider Unavailabl e Source Comments [facility],non-owned Affiliates and Associated Physician Practices is amultiple site organization consisting of ambulatory clinics and hospital sitesin [place], [place], [place] and [place]. This disclosure is being madepursuant to the Care Everywhere program and may not contain all information available regarding this patient. Last updated 18.[facility] Allergies Active Allergy Reactions Criticality Noted Date Comments Augmentin Nausea and/or Vomiting 08/24/2024 Azithromycin Diarrhea 08/24/2024 Cefprozil Diarrhea 08/24/2024 Methylphenidate FOREST OFFICER Dysfunction 08/24/2024 Metoclopramide FOREST OFFICER Dysfunction 08/24/2024 Medications * Be aware that [...] Department Care Team Description 01/03/2025 8:09 AM BOAT FUELER - 01/03/2025 11:59 PM BOAT FUELER Hospital Encounter [facility] [address] [place] [address] Cruz Tracy MD Discharge Disposition: Home or Self Care 12/07/2024 9:39 AM BOAT FUELER - 12/07/2024 11:59 PM BOAT FUELER Hospital Encounter [facility] [address] [place] [phone] Tamia Rangel MD Discharge Disposition: Home or Self Care 12/07/2024 Travel 11/09/2024 9:43 AM BOAT FUELER - 11/09/2024 11:59 PM BOAT FUELER Hospital Encounter [facility] [address] [place] [address] Shanel Cast MD Discharge Disposition: Home or Self Care 10/26/2024 8:15 AM BOAT FUELER - 10/26/2024 11:59 PM BOAT FUELER Hospital Encounter [facility] [address] [place] [phone] Walter Joshi MD Discharge Disposition: Home or Self Care 10/12/2024 9:00 AM BOAT FUELER - 10/12/2024 11:59 PM BOAT FUELER Hospital Encounter [facility] [address] [place] [address] Lobito Alexander DO TECHNICAL SUPPORT ANALYST Discharge Disposition: Home or Self Care from [...] and heating? Not hard at all 09/15/2024 [facility] [place] of Occupat ional Health - Occupational Stress [...] any time in the past 12 m [facility], were you homeless or living in [...] Comments Blood Pressure 151/66 09/15/2024 2:50 PM BOAT FUELER Pulse 88 09/15/2024 1:53 PM BOAT FUELER Temperature 37.1 C (98.7 F) 09/15/2024 12:14 PM BOAT FUELER Respiratory Rate 19 09/15/2024 1:53 PM BOAT FUELER Oxygen Saturation 98% 09/15/2024 1:29 PM BOAT FUELER Inhaled Oxygen Concentration - - Weight 159.2 kg (351 lb) 09/15/2024 9:30 AM BOAT FUELER Height 165.1 cm (5' 5 ) 09/15/2024 9:30 AM BOAT FUELER Body Mass Index 58.41 09/15/2024 9:30 AM BOAT FUELER Plan of Treatment Upcoming Encounters Date Type Department Care Team (Late st Contact Info) Description 03/29/2025 Hospital Encounter [facility] [address] [place] [address] Health Maintenance Due Date Last Done Comments PAP SMEAR 1985 HIV SCREENING 2002 HEPATITIS C SCREENING 10/17/2005 DTAP/TDAP/TD VACCINES (1 - Tdap) 2006 HEPATITIS B VACCINE (1 of 3 - 19+ 3-dose series) 2006 COVID-19 VACCINE (1 - 2023-2 5 season) 2024 INFLUENZA VACCINE [...] SONOGRAM - COMPLETE Routine 01/03/2025 8:02 AM BOAT FUELER Antepartum multigravida of advanced maternal age (HCC) History of delivery, currently (HCC) Obesity affecting in second trimester, unspecified obesity type (HCC) Encounter for ultrasound to assess growth (HCC) Encounter for follow-up ultrasound of anatomy (HCC) 28 weeks gestation of (HCC) SONOGRAM - COMPLETE Routine 12/07/2024 9:40 AM BOAT FUELER Antepartum multigravida of advanced maternal age (HCC) History of delivery, currently (HCC) Obesity affecting in second trimester, unspecified obesity type (HCC) Encounter for ultrasound to assess growth (HCC) Encounter for follow-up ultrasound of anatomy (HCC) 28 weeks gestation of (HCC) SONOGRAM - COMPLETE Routine 11/09/2024 9:49 AM BOAT FUELER Antepartum multigravida of advanced maternal age (HCC) Obesity affecting in second trimester, unspecified obesity type (HCC) History of delivery, currently (HCC) 20 weeks gestation of (HCC) Encounter for screening for cervical length (HCC) SONOGRAM - COMPLETE Routine 10/26/2024 8:17 AM BOAT FUELER Antepartum multigravida of advanced maternal age (HCC) Obesity affecting in second trimester, unspecified obesity type (HCC) History of delivery, currently (HCC) 20 weeks gestation of (HCC) Encounter for screening for cervical length (HCC) SONOGRAM - COMPLETE Routine 10/12/2024 9:07 AM BOAT FUELER Antepartum multigravida of advanced maternal age (HCC) Obesity affecting in second trimester, unspecified obesity type (HCC) History of delivery, currently (HCC) 20 weeks gestation of (HCC) Encounter for screening for cervical length (HCC) from Last 3 Months Results * SONOGRAM - COMPLETE (01/03/2025 8:02 AM BOAT FUELER) Only the most recent of5 resultswithin the time period is included. Linked Results Indication ======== Incomplete Anatomy Screen Left Complex Adnexal Mass Class III Obesity History of Failed GCT, awaiting GTT results History ====== OB History 4. Para 1 [id number] 1. miscarriage 2. live 2010. Gest. age [...] 4 lb 12 oz EFW by Hadlock ([id number]) appropriate Growth Overview Exam date [place] BPD [...] following structures appear normal: Heart / Thorax 5-easqel-fzsdtqj view. Aortic arch view. Abdomen Stomach. Kidneys. [...] due to maternal obesity Coding ====== Procedures [id number]: [place] Preg Uterus Follow Up [facility] PACS Anatomical Region Laterality Modality Other 01/03/2025 8:02 AM BOAT FUELER Viktor Rodriguez MD [facility] ORDERABLES from Last 3 Months Jennifer Guzman Personal/Family Self 1985
[2025-01-04 08:21] LABS: Glucose Fasting Gestational 96 mg/dL (>/=95)
[2025-01-04 09:52] LABS: Glucose 1 Hour Gest 172 mg/dL (>/=180)
[2025-01-04 11:04] LABS: Glucose 2 Hour Gest 152 mg/dL (>/= 155)
[2025-01-04 12:05] LABS: Glucose 3 Hour Gest 132 mg/dL (>/=140)
== END 2025-01-04 07:45 | disposition home or self-care (01) ==
LOC: ANHLAB 07:45
PROVIDERS: PCP Emergency Medicine; Visit Provider Obstetrics & Gynecology
DX: Z34.90 Encounter for supervision of normal pregnancy, unspecified, unspecified trimester (principal); Z3A.00 Weeks of gestation of pregnancy not specified
CPT/HCPCS: 36415; 82951; 82952

== ENCOUNTER 2025-02-02 10:26 | Outpatient (CLI) | payer OTHER, SELFPAY ==
[2025-02-02 10:58] VITALS: BP 131/63; PULSE 79
[2025-02-02 11:01] VITALS: BP 128/57; PULSE 88
[2025-02-02 11:04] LABS: Basophils Absolute Auto 0.1 K/mm3 (0.0-0.1); Basophils Percent Auto 0.4 % (0.2-1.2); Eosinophils Absolute Auto 0.2 K/mm3 (0-0.3); Eosinophils Percent Auto 1.2 % (0-4.4); Hematocrit 37.6 % (37.0-47.0); Hemoglobin 12.9 g/dL (12.0-15.0); Immature Granulocyte Absolute 0.12 K/mm3 (0.00-0.031); Lymphocytes Absolute Auto 1.93 K/mm3 (0.9-3.2); Lymphocytes Percent Auto 15.3 % (18.3-44.2); Mean Corpuscular HGB Conc 34.3 g/dl (32-36); Mean Corpuscular Hemoglobin 30.4 pg (26-34); Mean Corpuscular Volume 88.5 fl (80-100); Mean Platelet Volume 9.2 fl (7.4-10.4); Monocytes Absolute Auto 0.9 K/mm3 (0.1-0.6); Neutrophils Absolute Auto 9.5 K/mm3 (1.3-6.7); Neutrophils Percent Auto 75.1 % (45.5-73.1); Platelet Count Result 299 k/mm3 (150-375); Red Blood Count 4.25 M/mm3 (4.2-5.4); White Blood Count 12.6 K/mm3 (4.5-10.0)
[2025-02-02 11:05] LABS: Alanine Aminotransferase 14 U/L (6-35); Albumin Level 3.5 g/dL (3.5-5.1); Alkaline Phosphatase 91 U/L (38-126); Anion Gap 10 mmol/L (4-12); Aspartate Amino Transferase 18 U/L (14-36); Bilirubin,Total 0.2 mg/dL (0.2-1.3); Blood Urea Nitrogen 7 mg/dL (7-17); Calcium 9.4 mg/dL (8.4-10.2); Carbon Dioxide 18 mmol/L (22-30); Chloride 107 mmol/L (98-107); Estimated Glomerular Filt Rate > 60; Glucose 95 mg/dL (65-110); Potassium 4.2 mmol/L (3.4-5.0); Sodium 135 mmol/L (137-145); Uric Acid 4.3 mg/dL (2.5-7.5)
[2025-02-02 11:16] VITALS: BP 131/77; PULSE 85
--- OUTSIDE RECORDS SUMMARY | 2025-02-02 11:49 | XMS_ITS | Clinical Summary ---
Author Organization [facility] Address [address] [place] [address] Care Team Providers Care Senior Peoplesoft Developer Name Role Phone Unavailable Primary Care Provider Unavailabl e Source Comments [facility],non-owned Affiliates and Associated Physician Practices is amultiple site organization consisting of ambulatory clinics and hospital sitesin [place], [place], [place] and [place]. This disclosure is being madepursuant to the Care Everywhere program and may not contain all information available regarding this patient. Last updated 18.[facility] Allergies Active Allergy Reactions Criticality Noted Date Comments Augmentin Nausea and/or Vomiting 08/24/2024 Azithromycin Diarrhea 08/24/2024 Cefprozil Diarrhea 08/24/2024 Methylphenidate HIGH WIRE ARTIST Dysfunction 08/24/2024 Metoclopramide HIGH WIRE ARTIST Dysfunction 08/24/2024 Medications * Be aware that [...] 12 hours 30 tablet 2 09/15/2024 Active budesonide-formote rol (Symbicort) 80-4.5 MCG/ACT inhaler Inhale 2 (two) puffs by mouth 2 times daily 10.2 g 1 09/15/2024 Active NIFEdipine CR osmotic 24hr (Procardia-XL) 30 MG tablet Take 1 (one) tablet by mouth once daily 30 tablet 2 09/15/2024 Active Additional Information Patient taking differently: 60 mgOral DAILY,Indications: Hypertension, Reason: Provider adjusted, Informant: Patient, Reported on 02/02/2025 docusate sodium (Colace) 100 MG capsuleIndications :Constipation Take 1 (one) capsule by mouth once daily Reasons: Constipation Active Active Problems Problem Noted Date Diagnosed Date Shortness of breath 09/15/2024 Estimated Date of Delivery Comme nts Yes 02/28/2025 Based on last me nstrual period of 05/24/2024 Encounters Date Type Department Care Team Description 02/02/2025 8:44 AM CDT Hospital Encounter [facility] [address] [place] [id number] Head, Shanel Chen MD 01/18/2025 Travel 01/03/2025 8:09 AM WHIP SAWYER - 01/03/2025 11:59 PM WHIP SAWYER Hospital Encounter [facility] [address] [place] [id number] Cruz Tracy MD Discharge Disposition: Home or Self Care 12/07/2024 9:39 AM WHIP SAWYER - 12/07/2024 11:59 PM WHIP SAWYER Hospital Encounter [facility] [address] [place] [id number] Tamia Rangel MD Discharge Disposition: Home or Self Care 12/07/2024 Travel 11/09/2024 9:43 AM WHIP SAWYER - 11/09/2024 11:59 PM WHIP SAWYER Hospital Encounter [facility] [address] [place] [id number] Head, Shanel Chen MD Discharge Disposition: Home [...] and heating? Not hard at all 09/15/2024 [facility] [place] of Occupat ional Health - Occupational Stress [...] any time in the past 12 m [facility], were you homeless or living in a intermediate (including now)? No 09/15/2024 Estimated Date of Delivery Comme nts Yes 02/28/2025 Based on last me nstrual period of 05/24/2024 Sex and Gender Information Value Date Recorded Sex Assigned at Not on file Gender Identity Not on file Sexual Orientation Not on file Last Filed Vital Signs Vital Sign Reading Time Taken Comments Blood Pressure 121/72 02/02/2025 9:40 AM CDT Pulse 84 02/02/2025 9:40 AM CDT Temperature 37.1 C (98.7 F) 09/15/2024 12:14 PM WHIP SAWYER Respiratory Rate 19 09/15/2024 1:53 PM WHIP SAWYER Oxygen Saturation 98% 09/15/2024 1:29 PM WHIP SAWYER Inhaled Oxygen Concentration - - Weight 166.5 kg (367 lb) 02/02/2025 9:28 AM CDT Height 165.1 cm (5' 5 ) 09/15/2024 9:30 AM WHIP SAWYER Body Mass Index 61.07 09/15/2024 9:30 AM WHIP SAWYER Plan of Treatment Upcoming Encounters Date Type Department Care Team (Late st Contact Info) Description 03/29/[address] [facility] [address] [place] [address] Health Maintenance Due Date Last Done Comments PAP SMEAR 1985 HIV SCREENING 2002 HEPATITIS C SCREENING 10/17/2005 DTAP/TDAP/TD VACCINES (1 - Tdap) 2006 HEPATITIS B VACCINE (1 of 3 - 19+ 3-dose series) 2006 COVID-19 VACCINE (2023-2 5 season) 2024 INFLUENZA VACCINE (#1) 2024 9, 07/30/2018, 10/08/2017 DEPRESSION SCREENING 11/10/2024 OB-ONE HOUR GLUCOSE 11/22/2024 OB-TDAP CURRENT 11/29/2024 OB-RHOGAM INJECTION 12/06/2024 OB-GROUP B STREP SCREEN 01/24/2025 ZOSTER VACCINE (1 of 2) 2037 HIB VACCINE Aged Out No longer eligi ble based on patient's age to complete this topic HPV VACCINE Aged Out No longer eligi ble based on patient's age to complete this topic MENINGOCOCCAL (Group B) VACCINE SHARED DECISION-MAKING Aged Out No longer eligible based on patient's age to complete this topic MENINGOCOCCAL GROUPS A/C/Y/W VACCINE Aged Out No longer eligible b ased on patient's age to complete this topic PNEUMOCOCCAL VACCINE Aged Out No long er eligible based on patient's age to complete this topic Respiratory Syncytial Virus (RSV) Vaccine Pt: or over 60 yrs (No Doses Required) Completed Procedures Procedure Name Priority Date/Time Associated Diagnosis Comments BIOPHYSICAL PROFILE W NST Routine 02/02/2025 8:53 AM CDT Antepartum multigravida of advanced maternal age History of delivery, currently Obesity affecting in second trimester, unspecified obesity type Encounter for ultrasound to assess growth 36 weeks gestation of SONOGRAM - COMPLETE Routine 01/03/2025 8 :02 AM WHIP SAWYER Antepartum multigravida of advanced maternal age History of delivery, currently Obesity affecting in second trimester, unspecified obesity type Encounter for ultrasound to assess growth Encounter for follow-up ultrasound of anatomy 28 weeks gestation of SONOGRAM - COMPLETE Routine 12/07/2024 9 :40 AM WHIP SAWYER Antepartum multigravida of advanced maternal age History of delivery, currently Obesity affecting in second trimester, unspecified obesity type Encounter for ultrasound to assess growth Encounter for follow-up ultrasound of anatomy 28 weeks gestation of SONOGRAM - COMPLETE Routine 11/09/2024 9 :49 AM WHIP SAWYER Antepartum multigravida of advanced maternal age Obesity affecting in second trimester, unspecified obesity type History of delivery, currently 20 weeks gestation of Encounter for screening for cervical length from Last 3 Months Results * BIOPHYSICAL PROFILE W NST (02/02/2025 8:53 AM CDT) Linked Results Indication ======== Left Complex Adnexal Mass Class III Obesity in History of History ====== OB History 4. Para 1 [id number] 1. miscarriage 2. live 2010. Gest. age 32 w + 5 d. Weight 1,956 g. Details: PPROM/PTL 3. miscarriage Lab Tests Test Date Result NIPT Low risk Maternal Assessment = Physical Exam Height 168 cm, 5 ft 6 in. Weight 166 kg, 367 lb. Initial weight 160 kg, 353 lb. BMI 59.24 kg/m . Initial BMI 56.98 kg/m . Weight gain 6 kg, 14 lb Method ====== Transabdominal ultrasound. View: Sufficient ========= Meier . Number of fetuses: 1 Dating ====== Date Details Gest. age RAMU LMP 05/24/2024 36 w + 2 d 02/28/2025 Stated RAMU 36 w + 2 d 02/28/2025 Assigned dating based on the LMP, selected on 09/15/2024 36 w + 2 d 02/28/2025 General Evaluation Cardiac activity present. FHR 154 bpm. Presentation: cephalic Placenta: Placental site: anterior Amniotic Fluid Assessment ===== Amount of AF: normal MVP 6.2 cm. RAZ 15.1 cm. Q1 2.2 cm, Q2 2.8 cm, Q3 4.0 cm, Q4 6.2 cm Biophysical Profile 2: breathing movements 2: Gross body movements 2: tone 2: Amniotic fluid volume NST: reactive 08/19 Biophysical profile score Non Stress Test NST interpretation: reactive. Baseline FHR 140 bpm. Baseline variability: moderate. Accelerations: present. Decelerations: absent Biometry BPD 93.1 mm 37w 6d 92% Hadlock HC 349.6 mm 40w 5d 98% Hadlock AC 342.5 mm 38w 1d 95% Hadlock Femur 68.5 mm 35w 1d 20% Hadlock Humerus 57.4 mm 33w 2d 9% Julio HC / AC 1.02 Weight Calculation: EFW 3,284 g 86% Hadlock EFW (lb,oz) 7 lb 4 oz EFW by Hadlock ([id number]) overall normal range, but the AC is >90% Growth Overview = Exam date GA BPD (mm) HC (mm) [...] 80% 61.9 39% 57.2 82% 2155 78% 02/02/2025 36w 2d 93.1 92% 349.6 98% 342.5 95% 68.5 20% 57.4 9% 3284 86% Anatomy sex: male. Maternal Structures Left Ovary Appearance: Left Adnexal mass was suboptimal Impression ========= Single, live, intrauterine at 36w 2d growth is overall normal range, but the AC is >90% Amniotic fluid volume: normal Biophysical profile: 08/19 Left adnexal mass was suboptimally visualized Comment ======== Per TIP Ahumada consultation not requested today. Delivery is planned on 02/14 (38 weeks) Follow-up ======== 1. Weekly testing with BPP/NST is recommended until delivery. 2. Patient sent to L&D for evaluation of mild range BP. The office will be notified. 3. MOBILE HOME SET UP PERSON ultrasound at 4-6 weeks is recommended to evaluate previously visualized left adnexal m ass. If the patient requires delivery then the surgeon should evaluate the left ovary at that time. Coding ====== Procedures 69193: [place] [address]: Biophysical Profile W NST [employer] PACS Anatomical Region Laterality Modality Other 02/02/2025 8:53 AM CDT Viktor Rodriguez MD [facility] ORDERABLES * SONOGRAM - COMPLETE (01/03/2025 8:02 AM WHIP SAWYER) Only the most recent of3 resultswithin the time period is included. Linked Results Indication ======== Incomplete Anatomy Screen Left Complex Adnexal Mass Class III Obesity History of Failed GCT, awaiting GTT results History ====== OB History 4. Para 1 [id number] 1. miscarriage 2. live 2010. Gest. age [...] 4 lb 12 oz EFW by Hadlock ([id number]) appropriate Growth Overview Exam date GA BPD [...] following structures appear normal: Heart / Thorax 9-jsyrco-kxpsrur view. Aortic arch view. Abdomen Stomach. Kidneys. [...] due to maternal obesity Coding ====== Procedures [id number]: US Preg Uterus Follow Up [facility] TrackR PACS Anatomical Region Laterality Modality Other 01/03/2025 8:02 AM WHIP SAWYER Viktor Rodriguez MD [facility] ORDERABLES from Last 3 Months Jennifer Guzman Personal/Family Self 1985
--- OUTSIDE RECORDS SUMMARY | 2025-02-02 11:49 | XMS_ITS | Clinical Summary ---
Author Organization [facility] Address [facility] [place] [address] Care Team Providers Care Airport Maintenance Chief Name Role Phone Yvon Crook MD Primary Care Provider [phone] Allergies Active Allergy Reactions Criticality Noted Date [...] Comments Blood Pressure 131/72 09/12/2024 12:25 PM TOP PRINTING PRESS OPERATOR Pulse 70 09/12/2024 12:25 PM TOP PRINTING PRESS OPERATOR Temperature 36.7 C (98 F) 09/12/2024 12:25 PM TOP PRINTING PRESS OPERATOR Respiratory Rate 22 09/12/2024 12:25 PM TOP PRINTING PRESS OPERATOR Oxygen Saturation 95% 09/12/2024 12:25 PM TOP PRINTING PRESS OPERATOR Inhaled Oxygen Concentration - - Weight 159.2 kg (351 lb) 09/12/2024 11:02 AM TOP PRINTING PRESS OPERATOR Height 165.1 cm (5' 5 ) 09/12/2024 11:02 AM TOP PRINTING PRESS OPERATOR Body Mass Index 58.41 09/12/2024 11:02 AM TOP PRINTING PRESS OPERATOR Plan of Treatment Health Maintenance Due [...] to complete this topic Insurance Care Teams Airport Maintenance Chief Relationship Specialty Start Date End Date Yvon Crook MD [address] [place] [address] PCP - General FAMILY PRACTICE 12/18/22
--- OUTSIDE RECORDS SUMMARY | 2025-02-02 11:49 | XMS_ITS | Encounter Summary ---
Author Organization [facility] Address [address] [place] [address] Care Team Providers Care Driving Instructor Name Role Phone Unavailable Primary Care Provider Unavailabl e Reason for Referral * (Routine) - Open Specialty Diagnoses / Procedures Referred By Nelia galicia Referred To Contact Diagnoses Antepartum multigravida of advanced maternal age (HCC) History of delivery, currently (HCC) Obesity affecting in second trimester, unspecified obesity type (HCC) Encounter for ultrasound to assess growth (HCC) 36 weeks gestation of (HCC) Procedures BIOPHYSICAL PROFILE W Viktor Trammell MD [address] [place] [address] Referral ID Status Reason Start Date Expiration Date Visits Re quested Visits Authorized [id number] Open 01/25/2025 01/25/2026 3 3 Reason for Visit * Reason Comments Biophysical Profile Non-stress Test * (Routine) - Open Specialty Diagnoses / Procedures Referred By Nelia t Referred To Contact Diagnoses Antepartum multigravida of advanced maternal age (HCC) History of delivery, currently (HCC) Obesity affecting in second trimester, unspecified obesity type (HCC) Encounter for ultrasound to assess growth (HCC) 36 weeks gestation of (HCC) Procedures BIOPHYSICAL PROFILE W Viktor Trammell MD [address] [place] [address] Referral ID Status Reason Start Date Expiration Date Visits Re quested Visits Authorized [id number] Open 01/25/2025 01/25/2026 3 3 Encounter Details Date Type Department Care Team (Late st Contact Info) Description 02/02/2025 8:44 AM CDT Hospital Encounter [facility] [address] [place] [address] Head, Shanel Chen MD [address] [place] [address] Social History Tobacco Use Types Packs/Day Years [...] and heating? Not hard at all 09/15/2024 [facility] [place] of Occupat ional Health - Occupational Stress [...] were you homeless or living in a halfway (including now)? No 09/15/2024 Estimated Date of Delivery Comme nts Yes 02/28/2025 Based on last me nstrual period of 05/24/2024 Sex and Gender Information Value Date Recorded Sex Assigned at Not on file Gender Identity Not on file Sexual Orientation Not on file documented as of this encounter Last Filed Vital Signs Vital Sign Reading Time Taken Comments Blood Pressure 121/72 02/02/2025 9:40 AM CDT Pulse 84 02/02/2025 9:40 AM CDT Temperature - - Respiratory Rate - - Oxygen Saturation - - Inhaled Oxygen Concentration - - Weight 166.5 kg (367 lb) 02/02/2025 9:28 AM CDT Height - - Body Mass Index 61.07 09/15/2024 9:30 AM THERAPY AIDE documented in this encounter Progress Notes * Monica Meléndez RN - 02/02/2025 10:28 AM CDT Patient here today for NST/BPP performed at GA 36w2d. Patient reports she is scheduled for deliveryon 02/14/25 1700 cervid[address] [facility]OL at [facility]. Patient reports positive movement. Denies cramping, contractions, vaginal bleeding, and leakage of fluid. Patient denies headache, epigastric pain and visual changes. VS per flowsheet. MFM reviewed NST and orders to send patient to local L&D for evaluation of pre eclampsia due to elevated initial BP. Report given to DEVANTE Wilkerson at [facility]. Monica Meléndez RN 02/02/2025 10:31 AM documented in this encounter Plan of Treatment Upcoming Encounters Date Type Department Care Team (Late st Contact Info) Description 03/29/2025 Hospital Encounter [facility] [address] [place] [address] documented as of this encounter Procedures Procedure Name Priority Date/Time Associated Diagnosis Comments BIOPHYSICAL PROFILE W NST Routine 02/02/2025 8:53 AM CDT Antepartum multigravida of advanced maternal age History of delivery, currently Obesity affecting in second trimester, unspecified obesity type Encounter for ultrasound to assess growth 36 weeks gestation of documented in this encounter Results * BIOPHYSICAL PROFILE W NST (02/02/2025 8:53 AM CDT) Linked Results Indication ======== Left Complex Adnexal Mass Class III Obesity in History of History ====== OB History 4. Para 1 [id number] 1. miscarriage 2. live 2010. Gest. age [...] tone 2: Amniotic fluid volume NST: reactive 10/10 Biophysical profile score Non Stress Test NST [...] 7 lb 4 oz EFW by Hadlock ([id number]) overall normal range, but the AC is [...] BP. The office will be notified. 3. APPRAISER AUDITOR ultrasound at 4-6 weeks is recommended to evaluate previously visualized left adnexal m ass. If the patient requires delivery then the surgeon should evaluate the left ovary at that time. Coding ====== Procedures [id number]: [place] [address]: Biophysical Profile W NST Sifteo PACS Anatomical Region Laterality Modality Other 02/02/2025 8:53 AM CDT Viktor Rodriguez MD [facility] ORDERABLES documented in this encounter Visit Diagnoses Diagnosis Gestational hypertension, third trimester (HCC)- Primary Antepartum multigravida of advanced maternal age (HCC) History of delivery, currently (HCC) with history of pre-term labor Obesity affecting in second trimester, unspecified obesity type (HCC) Encounter for ultrasound to assess growth (HCC) 36 weeks gestation of (HCC) state, incidental documented in this encounter
[2025-02-02 11:56] LABS: Creatinine Urine 131.4 mg/dL
[2025-02-02 12:00] LABS: Total Protein Urine Random < 5 mg/dL; Ur Ttl Prot Creatinine Ratio < 0.04 mg/mg (0-0.20)
[2025-02-02 12:04] LABS: Add Urine Microscopic? YES; Appearance Urine Turbid (Clear); Bacteria Urine 4+ /hpf; Bilirubin Urine Negative (Negative); Blood Urine Non-Hemolyzed Trace (Negative); Color Urine Yellow (Yellow); Glucose Urine UA Negative (Negative); Ketones Urine Negative (Negative); Leukocyte Esterase Ur 3+ LEU/UL (Negative); Need Manual Microscopic Reviewed; Nitrate Urine Negative (Negative); Protein Urine Trace mg/dL (Negative); Specific Grav Ur 1.024 (1.001-1.035); Squamous Epithelial Cell Urine Many /hpf (Few); Urobilinogen Urine 0.2 mg/dL (<2.0); WBC Urine 51-100 /hpf (0-3); pH Urine 5.5 (5.0-9.0)
--- NOTE | 2025-02-02 12:24 | PC.NURSE ---
1210- Spoke with Dr. Rodriguez regarding patient admission for PIH workup. Labs and BPs reviewed. Orders to discharge to home.
== END 2025-02-02 12:25 | disposition home or self-care (01) ==
LOC: ANHOBOP 10:29 → ANHOBPP 10:30
PROVIDERS: Visit Provider Student in an Organized Health Care Education/Training Program
DX: O13.9 Gestational [pregnancy-induced] hypertension without significant proteinuria, unspecified trimester (principal); Z3A.00 Weeks of gestation of pregnancy not specified
CPT/HCPCS: 36415; 59025; 80053; 81001; 82570; 84156; 84550; 85025; 99199

== ENCOUNTER 2025-02-05 08:22 | Outpatient (RCR) | payer OTHER, SELFPAY ==
[2025-01-22 09:43] VITALS: BP 139/76; PULSE 84
[2025-01-29 14:34] VITALS: BP 128/70; PULSE 84
--- NOTE | ~2025-02-05 | US_ITS ---
EXAMINATION: US OB BPP wo non-stress DATE: 02/05/2025 09:26 INDICATION: Chronic hypertension. Third trimester. TECHNIQUE: Real-time pelvic ultrasound was performed. COMPARISON: Ultrasound 01/29/2025 FINDINGS: There is a single living fetus in vertex presentation. The placenta is anterior. heart rate is 148 beats per minute (bpm). Biophysical profile performed by the technologist: breathing (30 sec sustained breathing in 30 minutes): 2 out of 2 movement (3 gross body movements in 30 minutes): 2 out of 2 tone (one episode of bpgussh-mjhafwlry-jdyxqty limb movement): 2 out of 2 Amniotic fluid pocket (2 cm): 2 out of 2 Total score: 8 out of 8 IMPRESSION: 1. Single living fetus in vertex presentation. 2. Biophysical profile 8 out of 8. Reviewed, dictated and finalized at location A.
--- NOTE | ~2025-02-05 | US_ITS ---
Pelvic ultrasound with biophysical profile INDICATION: Hypertension TECHNIQUE: Real-time pelvic ultrasound was performed. The interpreting radiologist was not present fo r the study. COMPARISON: 12/21/2024 FINDINGS: There is a single living fetus in vertex presentation. The placenta is towards the fundus.. hea rt rate is 148 beats per minute (bpm). Biophysical profile performed by the technologist: breathing (30 sec sustained breathing in 30 minutes): 2 out of 2 movement (3 gross body movements in 30 minutes): 2 out of 2 tone (one episode of yjudiyz-yggezkewv-yckhasu limb movement): 2 out of 2 Amniotic fluid pocket (2 cm): 2 out of 2 Total score: 8 out of 8 IMPRESSION: 1. Single living fetus in vertex presentation. 2. Biophysical profile 8 out of 8. Reviewed, dictated and finalized at location .
--- NOTE | ~2025-02-05 | US_ITS ---
US OB BPP wo non-stress DATE: 01/29/2025 15:26 INDICATION: chtn TECHNIQUE: Real-time imaging, Doppler analysis COMPARISON: 01/22/2025 obstetrical ultrasound with biophysical profile Live mendoza intrauterine gestation; heart rate 147 bpm. Vertex presentation, longitudinal lie Anterior placenta, no previa Deepest vertical amniotic fluid pocket: 3.1 cm FINDINGS: BIOPHYSICAL PROFILE reported by plating technician: breathin out of 2 movement: 2 out of 2 tone: 2 out of 2 Amniotic fluid pocket: 2 out of 2 Total score: 8 out of 8 IMPRESSION: Normal biophysical profile score of 8 out of 8 Deepest vertical pocket of amniotic fluid: 3.1 cm Reviewed, dictated and finalized at Location A. Reviewed, dictated and finalized at location A.
[2025-02-05 09:20] VITALS: BP 133/64; PULSE 91
== END 2025-03-02 17:20 | disposition home or self-care (01) ==
LOC: ANHOBOP 08:22
PROVIDERS: Visit Provider Obstetrics & Gynecology
DX: O16.9 Unspecified maternal hypertension, unspecified trimester (principal)
CPT/HCPCS: 59025; 76819

== ENCOUNTER 2025-02-08 16:12 | Inpatient (IN) | payer OTHER, SELFPAY ==
[2025-02-08] VITALS (20 sets, daily range): BP systolic 117–159; BP diastolic 44–88; PULSE 84–99; TEMP 36.6–36.8; BMI 61.6
--- NOTE | 2025-02-08 16:12 | LDADM ---
This patient, Jennifer Guzman, was admitted to Labor/Delivery/Recovery 104 on 02/08/25 at 16:12. Plans for labor, pain management and were discussed with patient. Patient/family oriented to hospital policies and general routines including ID bracelet, bed and alarms, visiting hours, pain management, procedures, bathroom and other care routines, personal items, smoking policy, room service/diet and guest tray routines, security routines, and visiting hours. Patient/Family are encouraged to report perceived risks to care and to ask questions if they do not understand what they are told or what they should do. See OBIX for further documentation.
[2025-02-08 17:21] LABS: Basophils Percent Auto 0.4 % (0.2-1.2); Eosinophils Absolute Auto 0.1 K/mm3 (0-0.3); Eosinophils Percent Auto 0.7 % (0-4.4); Hematocrit 38.5 % (37.0-47.0); Immature Granulocyte Absolute 0.14 K/mm3 (0.00-0.031); Immature Granulocyte Percent A 1.4 % (0-0.5); Lymphocytes Absolute Auto 1.88 K/mm3 (0.9-3.2); Lymphocytes Percent Auto 18.5 % (18.3-44.2); Mean Corpuscular HGB Conc 33.8 g/dl (32-36); Mean Corpuscular Hemoglobin 29.5 pg (26-34); Mean Corpuscular Volume 87.5 fl (80-100); Mean Platelet Volume 9.2 fl (7.4-10.4); Monocytes Absolute Auto 1.1 K/mm3 (0.1-0.6); Monocytes Percent Auto 10.9 % (2.6-8.5); Neutrophils Absolute Auto 6.9 K/mm3 (1.3-6.7); Neutrophils Percent Auto 68.1 % (45.5-73.1); Platelet Count Result 298 k/mm3 (150-375); Red Cell Distribution Width 12.8 % (11.5-14.5); White Blood Count 10.2 K/mm3 (4.5-10.0)
--- OUTSIDE RECORDS SUMMARY | 2025-02-08 17:26 | XMS_ITS | Clinical Summary ---
Author Organization [facility] Address [address] [place] [address] Care Team Providers Care Cut Off Saw Operator Metal Name Role Phone Unavailable Primary Care Provider Unavailabl e Source Comments [facility],non-owned Affiliates and Associated Physician Practices is amultiple site organization consisting of ambulatory clinics and hospital sitesin [place], [place], [place]. This disclosure is being madepursuant to the Care Everywhere program and may not contain all information available regarding this patient. Last updated 18.[facility] Allergies Active Allergy Reactions Criticality Noted Date Comments Augmentin Nausea and/or Vomiting 08/24/2024 Azithromycin Diarrhea 08/24/2024 Cefprozil Diarrhea 08/24/2024 Methylphenidate PRESS T[employer]ER [employer]ENDI[employer] GRENADE Dysfunction 08/24/2024 Metoclopramide PRESS TENDER [employer]ENDI[employer] GRENADE Dysfunction 08/24/2024 Medications * Be aware that [...] Care Team Description 02/02/2025 8:44 AM CDT - 02/02/2025 11:59 PM CDT Hospital Encounter Formerly [facility], [facility] [address] [place] [id number] Shanel Cast MD Discharge Disposition: Home or Self Care 01/18/2025 Travel 01/03/2025 8:09 AM [employer] PROCESSING LABOURER - 01/03/2025 11:59 PM [employer] Hospital Encounter Formerly [facility], [facility] [address] [place] [id number] Cruz Tracy MD Discharge Disposition: Home or Self Care 12/07/2024 9:39 AM [employer] PROCESSING LABOURER - 12/07/2024 11:59 PM [facility] Hospital Encounter Formerly [facility], [facility] [address] [place] [id number] Tamia Rangel MD Discharge Disposition: Home or Self Care 12/07/2024 Travel from Last 3 Months Family History Medical [...] and heating? Not hard at all 09/15/2024 [place] [facility] - Occupational Stress [...] any time in the past 12 m [facility], were you homeless or living [...] 37.1 C (98.7 F) 09/15/2024 12:14 PM [employer]ING [employer]ER Respiratory Rate 19 09/15/2024 1:53 PM [employer] PROCESSING LABOURER Oxygen Saturation 98% 09/15/2024 1:29 PM [employer] PROCESSING LABOURER Inhaled Oxygen Concentration - - Weight 166.5 kg (367 lb) 02/02/2025 9:28 AM CDT Height 165.1 cm (5' 5 ) 09/15/2024 9:30 AM [employer] PROCESSING LABOURER Body Mass Index 61.07 09/15/2024 9:30 AM [employer] PROCESSING LABOURER Plan of Treatment Upcoming Encounters Date Type Department Care Team (Late st Contact Info) Description 03/29/2025 Hospital Encounter [facility] [address] [place] [address] Health Maintenance Due Date Last Done Comments [...] - COMPLETE Routine 01/03/2025 8 :02 AM [employer] O[employer] PROCESSING LABOURER Antepartum multigravida of advanced maternal age History of delivery, currently Obesity affecting in second trimester, unspecified obesity type Encounter for ultrasound to assess growth Encounter for follow-up ultrasound of anatomy 28 weeks gestation of SONOGRAM - COMPLETE Routine 12/07/2024 9 :40 AM [employer]ING [employer]OURER Antepartum multigravida of advanced maternal age History of delivery, currently Obesity affecting in second trimester, unspecified obesity type Encounter for ultrasound to assess growth Encounter for follow-up ultrasound of anatomy 28 weeks gestation of from Last 3 Months Results * BIOPHYSICAL PROFILE W NST (02/02/2025 8:53 AM CDT) Linked Results Indication ======== Left Complex Adnexal Mass Class III Obesity in History of History ====== OB History 4. Para 1 [id number] 1. miscarriage 2. live 2010. Gest. age [...] 7 lb 4 oz EFW by Hadlock ([id number]) overall normal range, but the AC is [...] BP. The office will be notified. 3. CLOTH PICKER ultrasound at 4-6 weeks is recommended to evaluate previously visualized left adnexal m ass. If the patient requires delivery then the surgeon should evaluate the left ovary at that time. Coding ====== Procedures 27268: [place] [address]: Biophysical Profile W NST [employer] PACS Anatomical Region Laterality Modality Other 02/02/2025 8:53 AM CDT Viktor Rodriguez MD [facility] ORDERABLES * SONOGRAM - COMPLETE (01/03/2025 8:02 AM [employer] PROCESSING LABOURER) Only the most recent of2 resultswithin the time period is included. Linked Results Indication ======== Incomplete Anatomy Screen Left Complex Adnexal Mass Class III Obesity History of Failed GCT, awaiting GTT results History ====== OB History 4. Para 1 [id number] 1. miscarriage 2. live 2010. Gest. age [...] 4 lb 12 oz EFW by Hadlock ([id number]) appropriate Growth Overview Exam date [place] BPD [...] following structures appear normal: Heart / Thorax 2-anqgqg-otyjymo view. Aortic arch view. Abdomen Stomach. Kidneys. [...] due to maternal obesity Coding ====== Procedures 32047: [facility] Anatomical Region Laterality Modality Other 01/03/2025 8:02 AM [employer] PROCESSING LABOURER Viktor Rodriguez MD [facility] ORDERABLES from Last 3 Months Jennfier Guzman Personal/Family Self 1985
--- OUTSIDE RECORDS SUMMARY | 2025-02-08 17:26 | XMS_ITS | Clinical Summary ---
Author Organization [facility] Address Formerly [facility] [place] [address] Care Team Providers Care Signalman Name Role Phone Yvon Crook MD Primary Care Provider [phone] Allergies Active Allergy Reactions Criticality Noted Date [...] Comments Blood Pressure 131/72 09/12/2024 12:25 PM ANIMAL BEHAVIOURIST Pulse 70 09/12/2024 12:25 PM ANIMAL BEHAVIOURIST Temperature 36.7 C (98 F) 09/12/2024 12:25 PM ANIMAL BEHAVIOURIST Respiratory Rate 22 09/12/2024 12:25 PM ANIMAL BEHAVIOURIST Oxygen Saturation 95% 09/12/2024 12:25 PM ANIMAL BEHAVIOURIST Inhaled Oxygen Concentration - - Weight 159.2 kg (351 lb) 09/12/2024 11:02 AM ANIMAL BEHAVIOURIST Height 165.1 cm (5' 5 ) 09/12/2024 11:02 AM ANIMAL BEHAVIOURIST Body Mass Index 58.41 09/12/2024 11:02 AM ANIMAL BEHAVIOURIST Plan of Treatment Health Maintenance Due Date [...] to complete this topic Insurance Care Teams Signalman Relationship Specialty Start Date End Date Yvon Crook MD [address] [place] [address] PCP - General FAMILY PRACTICE 12/18/22
[2025-02-08] MEDS: DINOPROSTONE 10 MG VAG INSERT VAGINAL (17:43)
[2025-02-08] MEDS: LACTATED RINGERS 1,000 ML 125 ML IV CONT (18:05)
[2025-02-08] MEDS: AMPICILLIN 2 GM/NS 100 ML 2 GM/100 ML BAG IVPB (18:06)
[2025-02-08 18:13] LABS: HIV 1/2 Ab P24 Ag Result Negative (Negative)
[2025-02-08 18:31] LABS: Syphilis IgG/IgM Antibody Negative (Negative)
--- NOTE | 2025-02-08 18:52 | P.PNAN_ITS ---
Anes - Eval Pre Procedure Procedure: labor pain management Date/Time: 02/08/25 18:52 Surgeon: Ronal Preop Diagnosis: pain during labor Pre Op Diagnosis: Induction of Labor Patient Data Age: 39 Gender: F Height: 1.65 m Weight: 168 kg Last Vital Signs Temp 98.1 F 02/08/25 17:39 Pulse 93 02/08/25 18:46 BP 157/76 H 02/08/25 18:46 Allergies Allergy/AdvReac Type Severity Reaction Status Date / Time amoxicillin (From Augmentin) Allergy Severe Diarrhea Verified 02/08/25 16:56 cefprozil Allergy Intermediate DIARRHEA Verified 02/08/25 16:56 clavulanic acid Allergy Intermediate Nausea and Verified 02/08/25 16:56 Vomiting methylphenidate Allergy Intermediate Confusion Verified 02/08/25 16:56 metoclopramide Allergy Intermediate Confusion Verified 02/08/25 16:56 azithromycin AdvReac Intermediate CONSTANT Verified 02/08/25 16:56 DIARRHEA Home Medications ?Medication ?Instructions ?Recorded ?Confirmed ?Type vits no.126-ferrous fum 1 tablet PO DAILY 08/19/24 02/08/25 History 28 mg iron-folic acid 800 mcg tablet (Classic ) nystatin 100,000 unit/gram topical 1 applic topical BID #15 grams 09/16/24 02/08/25 Rx powder aspirin 81 mg tablet,delayed 162 mg PO DAILY 12/06/24 02/08/25 History release (Adult Low Dose Aspirin) nystatin-triamcinolone 100,000 1 applic topical BID #30 grams 12/06/24 02/08/25 Rx unit/gram-0.1 % topical ointment nifedipine 60 mg tablet,extended 60 mg PO DAILY high blood pressure 12/21/24 02/08/25 Rx release #60 tabs labetalol 200 mg tablet 200 mg PO Q12H #120 tabs 12/28/24 02/08/25 Rx famotidine 20 mg tablet See Rx Instructions .Route 02/04/25 02/08/25 Rx .COMPLEX #30 tabs Laboratory Tests 02/08/25 17:15 WBC 10.2 H K/mm3 (4.5-10.0) RBC 4.40 M/mm3 (4.2-5.4) Hgb 13.0 g/dL (12.0-15.0) Hct 38.5 % (37.0-47.0) MCV 87.5 fl (80-100) MCH 29.5 pg (26-34) MCHC 33.8 g/dl (32-36) RDW 12.8 % (11.5-14.5) Plt Count 298 k/mm3 (150-375) MPV 9.2 fl (7.4-10.4) Immature Gran % (Auto) 1.4 H % (0-0.5) Neut % (Auto) 68.1 % (45.5-73.1) Lymph % (Auto) 18.5 % (18.3-44.2) Parmer % (Auto) 10.9 H % (2.6-8.5) Eos % (Auto) 0.7 % (0-4.4) Baso % (Auto) 0.4 % (0.2-1.2) Lymph # (Auto) 1.88 K/mm3 (0.9-3.2) Parmer # (Auto) 1.1 H K/mm3 (0.1-0.6) Eos # (Auto) 0.1 K/mm3 (0-0.3) Baso # (Auto) 0.0 K/mm3 (0.0-0.1) Abs Immat Gran (auto) 0.14 H K/mm3 (0.00-0.031) Absolute Neuts (auto) 6.9 H K/mm3 (1.3-6.7) Absolute Nucleated RBC 0.000 K/mm3 (0.0-0.012) Nucleated RBC % 0.0 % (0.0-0.2) Syphilis IgG/IgM Ab Negative (Negative) HIV 1&2 Ab/P24 Ag 4thGn Negative (Negative) Blood Type B Positive Antibody Screen Negative Patient hx anesthesia problems: none Family hx anesthesia problems: none Results Review: All pre-operative results and documents have been reviewed as part of the pre- operative evaluation. [facility] Past Medical History Medical History Hypertension Morbid obesity with BMI of 60.0-69.9, adult Suppression of menses Surgical History Surgical History History of placement of ear tubes Hx of cholecystectomy Family History Family History Father Hypertension Mother Hypertension Social History Social History Smoking status: Former smoker Alcohol intake: former Substance use: never Substance use type: does not use Do You Feel Safe in your Home?: Yes Lack of Transportation: No Lack of Food: Never True Current Housing: I Have Housing Concerned About Future Housing: No Difficulty Paying Gas/Electric Bills: No Difficulty Paying for Meds: No Currently Unemployed: No Education: Grade School Difficulty w/ Childcare or Family Care: No Living arrangements: with family Occupation/Education: occupation Gender identity (if verbalized by the patient): Female Sexual Orientation (if Verbalized by the Patient): Straight or Heterosexual Spiritual care concerns: No Exam Day of Procedure 02/08/25 18:52
[2025-02-08] MEDS: LABETALOL HCL 100 MG TABLET 200 MG PO (21:00)
[2025-02-08] MEDS: FAMOTIDINE 20 MG/2 ML VIAL IV PUSH (21:00)
[2025-02-08] MEDS: AMPICILLIN 1 GM/NS 50 ML 1 GM/50 ML BAG IVPB (22:04)
[2025-02-08 22:45] LABS: Add Urine Microscopic? YES; Appearance Urine Clear (Clear); Bacteria Urine None Seen /hpf; Bilirubin Urine Negative (Negative); Blood Urine Trace (Negative); Color Urine Yellow (Yellow); Creatinine Urine 141.4 mg/dL; Glucose Urine UA Negative (Negative); Ketones Urine Trace mg/dL (Negative); Leukocyte Esterase Ur Negative LEU/UL (Negative); Nitrate Urine Negative (Negative); Non Pathogenic Casts 0-2; Protein Urine Trace mg/dL (Negative); Specific Grav Ur 1.037 (1.001-1.035); Squamous Epithelial Cell Urine None Seen /hpf (Few); Urobilinogen Urine 0.2 mg/dL (<2.0); WBC Urine 0-5 /hpf (0-3); pH Urine 5.5 (5.0-9.0)
[2025-02-08 23:04] LABS: Total Protein Urine Random < 5 mg/dL; Ur Ttl Prot Creatinine Ratio < 0.04 mg/mg (0-0.20)
[2025-02-09] VITALS (304 sets, daily range): BP systolic 117–161; BP diastolic 51–135; PULSE 25–157; TEMP 36.4–36.9; O2SAT 86–100
[2025-02-09] MEDS: AMPICILLIN 1 GM/NS 50 ML 1 GM/50 ML BAG IVPB ×6 (01:59→23:08)
[2025-02-09 04:42] LABS: Alanine Aminotransferase 15 U/L (6-35); Albumin Level 3.5 g/dL (3.5-5.1); Alkaline Phosphatase 101 U/L (38-126); Anion Gap 12 mmol/L (4-12); Aspartate Amino Transferase 19 U/L (14-36); Bilirubin,Total 0.2 mg/dL (0.2-1.3); Blood Urea Nitrogen 12 mg/dL (7-17); Calcium 9.7 mg/dL (8.4-10.2); Carbon Dioxide 17 mmol/L (22-30); Chloride 107 mmol/L (98-107); Estimated CRCL calculation 230 ml/min; Estimated Glomerular Filt Rate > 60; Glucose 108 mg/dL (65-110); Potassium 4.1 mmol/L (3.4-5.0); Sodium 136 mmol/L (137-145)
[2025-02-09] MEDS: OXYTOCIN 30 UNITS/NS 500 ML 30 UNITS/500 ML BAG IV CONT (06:40)
--- NOTE | 2025-02-09 07:11 | P.HP_ITS ---
H&P: HPI History of Present Illness Date/Time: 02/09/25 07:11 Chief Complaint: induction of labor Narrative: Jennifer is a 39yo @ 37.2wks who presents for medical induction of labor. She has uncontrolled chronic hypertension on 2 separate oral medications. She has been comanaged with MFM and been doing testing. She reports good movement. No PEREZ, vision changes, CP, SOB. Her is complicated by: - CHTN- nifedipine 60xl, labetalol 200mg BID - h/o PTD @ 32w (PPROM)- CL Q 2 wks, 16-24 wks - obesity Pre-preg BMI 58- ASA, MFM for scans, testing at 34-36w - AMA; MFM anatomy - Left adnexal mass; solid ~6.7cm - GBS positive will need abx in labor Review of Systems Constitutional: Constitutional: Denies chills, Denies fever(s) and Denies headache(s) Eyes: Eyes: Denies change in vision ENT: Denies headache(s) Cardiovascular: Cardiovascular: Denies chest pain and Denies dyspnea Respiratory: Respiratory: Denies dyspnea Genitourinary: Genitourinary: Denies abnormal vaginal bleeding and Denies vaginal discharge Neurologic: Denies headache(s) Psychiatric: Psychiatric: Denies anxiety and Denies depression [facility] Past Medical History Medical History Hypertension Morbid obesity with BMI of 60.0-69.9, adult Suppression of menses Surgical History Surgical History History of placement of ear tubes Hx of cholecystectomy Family History Family History Father Hypertension Mother Hypertension Social History Social History Smoking status: Former smoker Alcohol intake: former Substance use: never Substance use type: does not use Do You Feel Safe in your Home?: Yes Lack of Transportation: No Lack of Food: Never True Current Housing: I Have Housing Concerned About Future Housing: No Difficulty Paying Gas/Electric Bills: No Difficulty Paying for Meds: No Currently Unemployed: No Education: Grade School Difficulty w/ Childcare or Family Care: No Living arrangements: with family Occupation/Education: occupation Gender identity (if verbalized by the patient): Female Sexual Orientation (if Verbalized by the Patient): Straight or Heterosexual Spiritual care concerns: No Meds Home Medications and Allergies Home Medications ?Medication ?Instructions ?Recorded ?Confirmed ?Type vits no.126-ferrous fum 1 tablet PO DAILY 08/19/24 02/08/25 History 28 mg iron-folic acid 800 mcg tablet (Classic ) nystatin 100,000 unit/gram topical 1 applic topical BID #15 grams 09/16/24 0412/04 Rx powder aspirin 81 mg tablet,delayed 162 mg PO DAILY 12/06/24 02/08/25 History release (Adult Low Dose Aspirin) nystatin-triamcinolone 100,000 1 applic topical BID #30 grams 12/06/24 02/08/25 Rx unit/gram-0.1 % topical ointment nifedipine 60 mg tablet,extended 60 mg PO DAILY high blood pressure 12/21/24 02/08/25 Rx release #60 tabs labetalol 200 mg tablet 200 mg PO Q12H #120 tabs 12/28/24 02/08/25 Rx famotidine 20 mg tablet See Rx Instructions .Route 02/04/25 02/08/25 Rx .COMPLEX #30 tabs Allergies Allergy/AdvReac Type Severity Reaction Status Date / Time amoxicillin (From Augmentin) Allergy Severe Diarrhea Verified 02/08/25 16:56 cefprozil Allergy Intermediate DIARRHEA Verified 02/08/25 16:56 clavulanic acid Allergy Intermediate Nausea and Verified 02/08/25 16:56 Vomiting methylphenidate Allergy Intermediate Confusion Verified 02/08/25 16:56 metoclopramide Allergy Intermediate Confusion Verified 02/08/25 16:56 azithromycin AdvReac Intermediate CONSTANT Verified 02/08/25 16:56 DIARRHEA Vital Signs Vital Signs - 24 hr 02/08/25 17:31 02/08/25 17:39 02/08/25 17:46 Temperature 98.1 F Pulse Rate 88 92 Blood Pressure 151/81 H 159/82 H Pulse Oximetry 02/08/25 18:00 02/08/25 18:01 02/08/25 18:16 Temperature 98.2 F Pulse Rate 92 87 Blood Pressure 148/69 H 153/82 H Pulse Oximetry 02/08/25 18:31 02/08/25 18:46 02/08/25 19:01 Temperature Pulse Rate 90 93 92 Blood Pressure 154/81 H 157/76 H 158/86 H Pulse Oximetry 02/08/25 19:16 02/08/25 19:31 02/08/25 19:46 Temperature Pulse Rate 90 90 91 Blood Pressure 145/75 H 153/81 H 150/79 H Pulse Oximetry 02/08/25 20:01 02/08/25 20:37 02/08/25 20:46 Temperature Pulse Rate 99 92 95 Blood Pressure 148/88 H 148/71 H 150/80 H Pulse Oximetry 02/08/25 21:00 02/08/25 21:01 02/08/25 22:00 Temperature 98 F Pulse Rate 95 94 Blood Pressure 148/81 H Pulse Oximetry 02/08/25 22:01 02/08/25 23:01 02/09/25 00:00 Temperature 97.6 F Pulse Rate 92 84 Blood Pressure 120/44 L 117/63 Pulse Oximetry 02/09/25 00:01 02/09/25 01:02 02/09/25 02:00 Temperature 97.9 F Pulse Rate 86 88 Blood Pressure 129/70 128/73 Pulse Oximetry 02/09/25 03:01 02/09/25 03:14 02/09/25 03:19 Temperature Pulse Rate 88 Blood Pressure 137/69 Pulse Oximetry 97 96 02/09/25 03:24 02/09/25 03:29 02/09/25 03:34 Temperature Pulse Rate Blood Pressure Pulse Oximetry 97 97 97 02/09/25 03:39 02/09/25 03:44 02/09/25 03:49 Temperature Pulse Rate Blood Pressure Pulse Oximetry 95 96 95 02/09/25 03:54 02/09/25 03:59 02/09/25 04:01 Temperature Pulse Rate 83 Blood Pressure 132/75 Pulse Oximetry 97 94 02/09/25 04:04 02/09/25 04:09 02/09/25 04:14 Temperature Pulse Rate Blood Pressure Pulse Oximetry 93 93 95 02/09/25 04:19 02/09/25 04:24 02/09/25 04:29 Temperature Pulse Rate Blood Pressure Pulse Oximetry 94 95 98 02/09/25 04:30 02/09/25 04:34 02/09/25 04:39 Temperature 97.8 F Pulse Rate Blood Pressure Pulse Oximetry 93 92 02/09/25 04:44 02/09/25 04:49 02/09/25 04:54 Temperature Pulse Rate Blood Pressure Pulse Oximetry 94 93 92 02/09/25 04:59 02/09/25 05:01 02/09/25 05:04 Temperature Pulse Rate 82 Blood Pressure 136/82 Pulse Oximetry 95 94 02/09/25 05:09 02/09/25 05:14 02/09/25 05:19 Temperature Pulse Rate Blood Pressure Pulse Oximetry 93 95 95 02/09/25 05:52 02/09/25 05:57 02/09/25 06:00 Temperature 97.9 F Pulse Rate Blood Pressure Pulse Oximetry 97 96 02/09/25 06:02 02/09/25 06:07 02/09/25 06:12 Temperature Pulse Rate Blood Pressure Pulse Oximetry 96 94 94 02/09/25 06:17 02/09/25 06:22 02/09/25 06:27 Temperature Pulse Rate Blood Pressure Pulse Oximetry 95 96 95 02/09/25 06:32 02/09/25 06:37 02/09/25 06:42 Temperature Pulse Rate Blood Pressure Pulse Oximetry 96 95 95 02/09/25 06:47 02/09/25 06:52 02/09/25 06:57 Temperature Pulse Rate Blood Pressure Pulse Oximetry 97 96 97 02/09/25 06:59 02/09/25 07:04 02/09/25 07:07 Temperature Pulse Rate Blood Pressure Pulse Oximetry 96 95 97 Exam Const: General: cooperative, no acute distress and obese Nutritional Appearance: obese morbidly obese Orientation/consciousness: patient oriented x3 Resp: Effort & Inspection: normal respiratory effort Cardio: Rate: regular rate GI: GI Palp: No abdominal tenderness : Other: FHT's: 140's/ mod phil/ + accels/ no decels - cat 1 TOCO: ctxs q5min Cervix: 2.5/50/-3 Membranes: AROM, clear 0725 Presentation: cephalic Skin: General skin exam: normal color Neuro: General: patient oriented x3 Extrem: General: normal to inspection Psych: Appearance: grossly normal Affect: normal affect Attitude: cooperative H&P: Results Labs Labs: Short CBC 02/08/25 Range/Units 17:15 WBC 10.2 H (4.5-10.0) K/mm3 Hgb 13.0 (12.0-15.0) g/dL Hct 38.5 (37.0-47.0) % Plt Count 298 (150-375) k/mm3 BMP 02/08/25 17:15 Sodium 136 L Potassium 4.1 Chloride 107 Carbon Dioxide 17 L BUN 12 D Creatinine 0.44 L Glucose 108 Calcium 9.7 Liver Function 02/08/25 Range/Units 17:15 Total Bilirubin 0.2 (0.2-1.3) mg/dL AST 19 (14-36) U/L ALT 15 (6-35) U/L Alkaline Phosphatase 101 (38-126) U/L Albumin 3.5 (3.5-5.1) g/dL Urine 02/08/25 Range/Units 22:25 Urine Color Yellow (Yellow) Urine Appearance Clear (Clear) Urine pH 5.5 (5.0-9.0) Ur Specific [place] 1.037 H (1.001-1.035) Urine Protein Trace (Negative) mg/dL Urine Glucose (UA) Negative (Negative) mg/dL Assessment and Plan Assessment and plan (1) Chronic hypertension affecting : Code(s): O10.919 - Unspecified pre-existing hypertension complicating , unspecified trimester Status: Acute Plan - Uncontrolled CHTN; on nifedipine 60mg qd + labetalol 200mg BID-- continue - PIH labs normal - BPs in moderate range; no severe range - AROM performed; may need to place internal monitors if having inability to monitor - Continuous monitoring; currently category 1 - GBS positive: ampicillin per protocol - Anesthesia consult PRN pain
[2025-02-09] MEDS: NIFEdipine 30 MG TAB.ER.24 60 MG PO (08:28)
[2025-02-09] MEDS: LABETALOL HCL 100 MG TABLET 200 MG PO (08:29)
[2025-02-09] MEDS: LACTATED RINGERS 1,000 ML 125 ML IV CONT ×3 (09:00→18:37)
--- NOTE | 2025-02-09 13:08 | PM.OBPNLAB ---
Pain Control Date/time seen: 02/09/25 13:08 Pain control: epidural (working well after third placement) Pelvic Exam Dilation (cm): 4 Effacement (%): 50 station: -3 Amniotic membrane status: Ruptured (AROM, clear 0725) Contractions Monitor mode: Internal Contraction frequency: 3 Status status: Category ll Comments: FSE placed on this exam severe variable into prolonged deceleration noted after epidural after FSE placement, Cat 1 tracing Assessment and Plan Pitocin rate (mU/min): 0 (held) Assessment: induction ongoing Plan: continuous present management Comments: - prolonged decel noted after epidural placement; FSE placed, now with category 1 tracing - pitocin held and will continue to hold until 30 min of cat 1 tracing - if any further prolonged decelerations noted, will proceed with pLTCS
[2025-02-09] MEDS: ONDANSETRON INJ 4 MG/2 ML VIAL IV PUSH (14:40)
[2025-02-09] MEDS: FAMOTIDINE 20 MG/2 ML VIAL IV PUSH (18:01)
--- NOTE | 2025-02-09 18:25 | PM.OBPNLAB ---
Pain Control Date/time seen: 02/09/25 18:25 Pain control: epidural Pelvic Exam Dilation (cm): 5 Effacement (%): 70 station: -3 Amniotic membrane status: Ruptured (AROM, clear 0725) Contractions Monitor mode: Internal Contraction frequency: 2 (-3 (adequate)) Status status: Category l Assessment and Plan Pitocin rate (mU/min): 8 Assessment: induction ongoing Plan: continuous present management Comments: - BPs in moderate range, no severe; asympatomatic - continue ampicillin for GBS +
[2025-02-09] MEDS: CALCIUM CARBONATE (TUMS) 500 MG (200 MG ELEMENTAL) PO (18:37)
[2025-02-10] VITALS (108 sets, daily range): BP systolic 86–167; BP diastolic 46–120; PULSE 51–92; RESP 16–20; TEMP 36.1–37.1; O2SAT 91–100
[2025-02-10] MEDS: CALCIUM CARBONATE (TUMS) 500 MG (200 MG ELEMENTAL) PO (02:30)
[2025-02-10] MEDS: AMPICILLIN 1 GM/NS 50 ML 1 GM/50 ML BAG IVPB (03:04)
[2025-02-10] MEDS: LACTATED RINGERS 1,000 ML 125 ML IV CONT ×2 (03:04→05:43)
[2025-02-10] MEDS: CHLORHEXIDINE GLUCONATE 4% SOL 120 ML BTL 1 APPLIC TOPICAL (04:30)
[2025-02-10] MEDS: LABETALOL HCL 100 MG TABLET 200 MG PO ×2 (05:22→22:52)
[2025-02-10] MEDS: FAMOTIDINE 20 MG/2 ML VIAL IV PUSH (05:42)
[2025-02-10] MEDS: ONDANSETRON INJ 4 MG/2 ML VIAL IV PUSH (05:42)
[2025-02-10] MEDS: ACETAMINOPHEN 500 MG TABLET 1000 MG PO (05:43)
--- NOTE | 2025-02-10 05:55 | WPDHPUPDATE1 ---
History and Physical Update Update Date/Time: 02/10/25 05:55 History and Physical has been reviewed, including an updated exam of the patient. There are NO changes in the patient's condition. Risks, benefits, and alternatives have been discussed and questions answered. Patient agrees to proceed with primary .
--- NOTE | 2025-02-10 05:55 | PM.OBPNLAB ---
Pain Control Date/time seen: 02/10/25 05:55 Pain control: epidural Pelvic Exam Dilation (cm): 5 Effacement (%): 70 station: -3 Amniotic membrane status: Ruptured (AROM, clear 0725) Contractions Monitor mode: Internal Contraction frequency: 2 (-3 (adequate)) Status status: Category l Assessment and Plan Plan: Comments: - she has remained 5cm with ruptured, on pitocin augmentation, with IUPC (adequate contractions) in place for 12 hours - pt has had intermittent severe range BPs - proceed with primary
[2025-02-10] MEDS: GENTAMICIN SULFATE IVPB (06:20)
[2025-02-10] MEDS: AZITHROMYCIN 500 MG/NS 250 ML 500 MG/250 ML BAG 250 MG IVPB (06:20)
[2025-02-10] MEDS: DEXTROSE 5% IVPB (06:20)
[2025-02-10] MEDS: CLINDAMYCIN 900 MG/D5W 50 ML 900 MG/50 ML PIGGYBACK 50 MG IVPB (06:20)
--- NOTE | 2025-02-10 07:42 | W.PM.OBCSD ---
OB - Delivery Note Procedure Delivery date: 02/10/25 Pre-op diagnosis: Chronic Hypertension (uncontrolled), Failed Induction of Labor and Positive Group B Strep (GBS) Post-op Diagnosis: Same Induction method: Per Cervidil Protocol Delivery augmentation: Rupture of Membranes and Pitocin Delivery monitor: Internal FHT and Internal Uterine Prior to decision for section, ACOG/SM labor guidelines were considered and discussed with the patient and staff. Decision made to proceed with the section.: Yes Procedure Performed: Primary Primary branch: low cervical, transverse Surgeon: Mary Villeda MD Anesthesia type: Epidural Description of Procedure/Findings: Jennifer was counseled on all risks and benefits in detail. She was taken to the operating room where epidural was found to be adequate. She was then prepped and draped in the normal sterile fashion and a Traxi. She received Azithromycin 500mg, Gentamicin 5mg/kg and Clindamycin 900mg and a time out was performed. A Pfannenstiel incision was made in the skin and carried down to the underlying fascia. The fascia was nicked on either side of the midline and the fascial incision was extended laterally and superiorly using curved Donovan scissors. The fascia was then elevated using Deanna clamps and the underlying rectus muscles were dissected off the fascia, superiorly and inferiorly. The rectus muscles were then in the midline and the peritoneum was entered bluntly. Once adequate exposure was obtained, a Mobius self retractor was placed within the abdomen. A bladder flap was created and a large sinus on the left side of the uterus was then noted to be bleeding 3 figure of 8 stitches using 0 -Vicryl was placed and it was hemostatic. A low transverse incision was made on the lower uterine segment and clear fluid was noted. The occiput was brought to the hysterotomy and the head was easily delivered. The shoulders and body then followed without complications. The infant had spontaneous cry and the mouth and nose were bulb suctioned. The cord was clamped and cut and the infant was handed off to the awaiting pediatric nurse. A segment of the cord was collected for cord gases. The remaining cord blood was collected for typing. With pitocin infusing, the placenta delivered with gentle traction on the cord without complications. The uterus was then cleared out of all clots and debris using a clean, moist lap. The hysterotomy was then repaired in a running, interlocking fashion using 0 Vicryl. A second layer imbricating suture was then made using 0 Vicryl. Brisk bleeding was noted from a feeding vessel in the lower part of the uterus; 2 figure of eight stitches using 0-Vicryl were placed and the hysterotomy was then found to be hemostatic and good uterine tone was noted. The bilateral adnexa were examined; the left ovarian cyst was noted 5-6cm, cystic and normal in appearance. The pelvis was cleared of all clots and fluid. Surgicel powder was then placed over the raw edges. The Mobius retractor was removed from the abdomen. The peritoneum, muscle, and fascia were examined and made hemostatic with bovie cautery. The fascia was then repaired using a 0 loop PDS suture in a running fashion. The subcutaneous tissue was then irrigated and made hemostatic with bovie cautery. The subcutaneous tissue was then reapproximated using 2-0 Vicryl. The skin was then closed using skyler. A BULL dressing was placed over her incision in a sterile manner. Sponge, lap, needle and instrument counts were correct at the end of the procedure x2. The patient tolerated the procedure well and was taken to recovery in a stable condition. Specimen: Yes Estimated Blood Loss: 820 Pathology: Yes (placenta) Complications: No immediate complications Condition: Stable Disposition: Floor [place] Baby Date of : 02/10/25 Time of : 06:52 Gestational Age by Date: 37 (.3) gender: Male Weight (pounds): 6 Weight (ounces): 12 presentation: vertex position: Right Occiput Transverse (asynclitic ) Placenta delivery description: Expressed Cord Vessel Description: 3 Vessels and Delayed Cord Clamping score one minute: 8 score five minutes: 9
[2025-02-10] MEDS: miSOPROStol 200 MCG TABLET 800 MCG RECTAL (07:55)
[2025-02-10] MEDS: fentaNYL CITRATE INJ (*CRX) 100 MCG/2 ML VIAL 50 MCG IV PUSH (08:00)
--- NOTE | 2025-02-10 10:12 | OBPPTRN ---
Patient transferred to post room #286 via stretcher. Support person present. Oriented to unit, room, information board, rooming in, admission packet and security measures. Patient verbalizes understanding.
[2025-02-10] MEDS: OXYTOCIN 30 UNITS/NS 500 ML 30 UNITS/500 ML BAG 125 UNITS IV CONT (10:35)
[2025-02-10] MEDS: SIMETHICONE 80 MG TAB.CHEW PO ×2 (11:30→17:30)
[2025-02-10] MEDS: KETOROLAC 15 MG/ML VIAL (*BKC) IV PUSH ×2 (11:30→17:30)
[2025-02-10] MEDS: ACETAMINOPHEN 325 MG TABLET 650 MG PO ×2 (11:30→17:30)
[2025-02-10] MEDS: FLUCONAZOLE 150 MG TABLET PO (11:31)
[2025-02-10] MEDS: MULTIVIT/MIN/PREN/FOL AC/IRON TABLET 1 TAB PO (11:31)
[2025-02-10] MEDS: NIFEdipine 30 MG TAB.ER.24 60 MG PO (11:31)
[2025-02-10] MEDS: DOCUSATE SODIUM 100 MG CAPSULE PO ×2 (11:31→17:30)
[2025-02-10] MEDS: LIDOCAINE 5% PATCH 1 PATCH TRANSDERM (11:37)
[2025-02-10] MEDS: DEXTROSE 5%/0.45% SOD CHL 1,000 ML 125 ML IV CONT (14:17)
[2025-02-10 14:36] LABS: Hematocrit 32.6 % (37.0-47.0); Hemoglobin 10.6 g/dL (12.0-15.0); Mean Corpuscular HGB Conc 32.5 g/dl (32-36); Mean Corpuscular Hemoglobin 29.7 pg (26-34); Mean Corpuscular Volume 91.3 fl (80-100); Mean Platelet Volume 9.3 fl (7.4-10.4); Platelet Count Result 238 k/mm3 (150-375); Red Blood Count 3.57 M/mm3 (4.2-5.4); Red Cell Distribution Width 12.9 % (11.5-14.5); White Blood Count 14.9 K/mm3 (4.5-10.0)
--- NOTE | 2025-02-10 18:04 | PC.NURSE ---
1754. Introductions were made, then consulted with patient to assess needs related to . Mother led the conversation with her?plans to feed?her infant and the?experience so far. Encouraged understanding of the benefits of skin to skin (demonstrating unwrapping infant and placing upright on her chest), stimulating with massage touch, changing positions to encourage wakefulness, how to watch for early feeding cues, responsive feeding, feeding on demand (aiming for 8-12 times in 24 hours, about every 2-3 hours), milk production, building/maintaining a milk supply, duration of feeding, signs of adequate intake/output and how to record on the feeding sheet. Mother works well with her with encouragement and education. Reviewed positioning and ear, shoulder, hip alignment, supporting the breast to facilitate a deep latch, asymmetrical latch (off-center), leading with the chin with a big, open, wide gape and body close to mother. latched optimally to the left breast in cross cradle position. Education given to the mother of how to visualize the suckling (with good rocking jaw motion), swallows (dropping of the lower jaw) and how to listen for drinking at the breast (the ka sound). was [able/unable] to maintain latch without pain to mother protecting the nipple with optimal positioning and latching. Reviewed comfort measures of healing with a warm, wet washcloth to rinse breast, then leave open to air-dry, good handwashing when or touching the breast/nipples to prevent infection. Mother voiced understanding of skin to skin, stimulating with massage touch, responsive feedings, hand expressed colostrum, talking to to encourage if it has been 2 -2.5 hours since the start of the last , to call if does not latch, or if there is discomfort with . Resources used for education were facilitated with the visual educational handouts. Inpatient resources provided with feeding sheet, name written on the communication board, and the mom/baby guide. Parents voiced understanding of information, demonstrated learning and will call if there is a request for assistance. Reported to the Primary RN.
[2025-02-10] MEDS: ENOXAPARIN 40 MG/0.4 ML SYRINGE SUB-Q (22:52)
[2025-02-11] VITALS (7 sets, daily range): BP systolic 123–142; BP diastolic 62–72; PULSE 80–89; RESP 18–20; TEMP 36.2–36.6; O2SAT 98–100
[2025-02-11] MEDS: KCL 20 MEQ/D5/0.45% SOD CHL 1,000 ML 125 ML IV CONT (00:10)
[2025-02-11] MEDS: ACETAMINOPHEN 325 MG TABLET 650 MG PO ×5 (00:10→23:30)
[2025-02-11] MEDS: KETOROLAC 15 MG/ML VIAL (*BKC) IV PUSH ×2 (00:10→05:40)
[2025-02-11 04:55] LABS: Basophils Absolute Auto 0.1 K/mm3 (0.0-0.1); Basophils Percent Auto 0.6 % (0.2-1.2); Eosinophils Absolute Auto 0.2 K/mm3 (0-0.3); Eosinophils Percent Auto 1.8 % (0-4.4); Hematocrit 29.9 % (37.0-47.0); Immature Granulocyte Absolute 0.11 K/mm3 (0.00-0.031); Immature Granulocyte Percent A 0.9 % (0-0.5); Lymphocytes Absolute Auto 2.65 K/mm3 (0.9-3.2); Lymphocytes Percent Auto 20.9 % (18.3-44.2); Mean Corpuscular HGB Conc 33.4 g/dl (32-36); Mean Corpuscular Hemoglobin 30.7 pg (26-34); Mean Corpuscular Volume 91.7 fl (80-100); Mean Platelet Volume 9.4 fl (7.4-10.4); Monocytes Percent Auto 7.6 % (2.6-8.5); Neutrophils Absolute Auto 8.7 K/mm3 (1.3-6.7); Neutrophils Percent Auto 68.2 % (45.5-73.1); Platelet Count Result 228 k/mm3 (150-375); Red Blood Count 3.26 M/mm3 (4.2-5.4); Red Cell Distribution Width 13.1 % (11.5-14.5); White Blood Count 12.7 K/mm3 (4.5-10.0)
[2025-02-11 05:15] LABS: Alanine Aminotransferase 13 U/L (6-35); Albumin Level 2.6 g/dL (3.5-5.1); Alkaline Phosphatase 71 U/L (38-126); Anion Gap 6 mmol/L (4-12); Aspartate Amino Transferase 21 U/L (14-36); Bilirubin,Total 0.2 mg/dL (0.2-1.3); Blood Urea Nitrogen 6 mg/dL (7-17); Calcium 8.2 mg/dL (8.4-10.2); Carbon Dioxide 19 mmol/L (22-30); Chloride 108 mmol/L (98-107); Estimated CRCL calculation 250 ml/min; Estimated Glomerular Filt Rate > 60; Glucose 97 mg/dL (65-110); Potassium 3.8 mmol/L (3.4-5.0); Sodium 133 mmol/L (137-145)
--- NOTE | 2025-02-11 07:09 | WPDANLDPN2 ---
Anes-Prog Note L&D Date/Time: 02/11/25 07:09 Comfortable throughout: section Neuraxial method: epidural Epidural/Spinal procedure site: clean & non-tender Neuro status: Neuro function grossly intact. Cardiovascular status: normal Respiratory status: normal Airway patency: baseline Mental status: baseline Post-Op hydration status: normal Vital Signs: Last Vital Signs Temp 36.2 C L 02/11/25 00:10 Pulse 89 02/11/25 00:10 Resp 20 02/11/25 00:10 BP 142/69 H 02/11/25 00:10 Pulse Ox 99 02/11/25 00:10 O2 Del Method Room Air 02/10/25 15:30 Pain score (VAS): 3/10 I/O: Intake & Output 02/10/25 02/10/25 02/11/25 15:59 23:59 07:59 Intake Total 0 790 1950 Output Total 5461 499 5404 Balance -1020 515 700 Post-procedural complaints: none Patient feedback: Patient satisfied with anesthetic care.
--- NOTE | 2025-02-11 07:09 | WPDANLDNPN2 ---
Anes-Prog Note L&D-Neuraxial Date/Time: 02/11/25 07:09 Neuraxial medications: epidural PF morphine Opiod-related complaints: none Patient feedback: Patient satisfied with post-operative pain management.
[2025-02-11] MEDS: NIFEdipine 30 MG TAB.ER.24 60 MG PO (08:11)
[2025-02-11] MEDS: LABETALOL HCL 100 MG TABLET 200 MG PO ×2 (08:11→21:35)
[2025-02-11] MEDS: DOCUSATE SODIUM 100 MG CAPSULE PO ×2 (08:12→17:41)
[2025-02-11] MEDS: SIMETHICONE 80 MG TAB.CHEW PO ×3 (08:13→17:40)
[2025-02-11] MEDS: MULTIVIT/MIN/PREN/FOL AC/IRON TABLET 1 TAB PO (08:13)
[2025-02-11] MEDS: FAMOTIDINE 20 MG TABLET PO (08:37)
--- NOTE | 2025-02-11 09:05 | PM.OBPNVD ---
OB - PN: Subj Subjective Date/time seen: 02/11/25 09:05 Narrative: POD#1 Jennifer reports doing well today. 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 Her pain is controlled. She is tolerating regular diet, voiding, passing gas, and ambulating without issues. She denies any issues with her incision. She is bottle feeding. She would like her son circumcised, but he hasn't been eating well. OB - PN: Obj Data Labs 02/11/25 04:28 02/11/25 04:28 Labs: Laboratory Results - last 24 hr 02/10/25 02/11/25 14:28 04:28 WBC 14.9 H 12.7 H RBC 3.57 L 3.26 L Hgb 10.6 L 10.0 L Hct 32.6 L 29.9 L MCV 91.3 91.7 MCH 29.7 30.7 MCHC 32.5 33.4 RDW 12.9 13.1 Plt Count 238 228 MPV 9.3 9.4 Immature Gran % (Auto) 0.9 H Neut % (Auto) 68.2 Lymph % (Auto) 20.9 [place] % (Auto) 7.6 Eos % (Auto) 1.8 Baso % (Auto) 0.6 Lymph # (Auto) 2.65 [place] # (Auto) 1.0 H Eos # (Auto) 0.2 Baso # (Auto) 0.1 Abs Immat Gran (auto) 0.11 H Absolute Neuts (auto) 8.7 H Absolute Nucleated RBC 0.000 Nucleated RBC % 0.0 Sodium 133 L Potassium 3.8 Chloride 108 H Carbon Dioxide 19 L Anion Gap 6 BUN 6 L D Creatinine 0.40 L Estim Creat Clear Calc 250 Estimated GFR > 60 Glucose 97 Calcium 8.2 L Total Bilirubin 0.2 AST 21 ALT 13 Alkaline Phosphatase 71 Total Protein 5.0 L Albumin 2.6 L OB - PN A/P Assessment and Plan (1) S/P section: Code(s): Z98.891 - History of uterine scar from previous surgery Status: Acute (2) Chronic hypertension affecting : Code(s): O10.919 - Unspecified pre-existing hypertension complicating , unspecified trimester Status: Acute Plan day: 1 Plan: routine care Comments: - PO pain meds - Regular diet - Ambulation and hydration encouraged - Circ tomorrow as he's not eating well today - continue nifedipine 60mg qd + labetalol 200mg BID Time Spent With Patient Time: Total time spent is greater than 50% in coordination of care (as documented) at patient's floor/unit and/or counseling patient: Review of Systems Constitutional: Constitutional: Denies chills, Denies fever(s) and Denies headache(s) Eyes: Eyes: Denies change in vision ENT: Denies dizziness and Denies headache(s) Cardiovascular: Cardiovascular: Denies chest pain, Denies palpitations and Denies dyspnea Respiratory: Respiratory: Denies cough and Denies dyspnea Gastrointestinal: Gastrointestinal: Denies nausea and Denies vomiting Genitourinary: Comments: normal bleeding Neurologic: Denies dizziness and Denies headache(s) Endocrine: Endocrine: Denies palpitations Exam Const: General: cooperative, comfortable and no acute distress Orientation/consciousness: patient oriented x3 Resp: Effort & Inspection: normal respiratory effort Auscultation: clear to auscultation bilaterally Cardio: Rate: regular rate GI: Inspection: non-distended and incision (covered with clean dressing) GI Palp: Yes abdominal tenderness (appropriate) and Yes Soft to palpation Auscultation: normal bowel sounds : Other: fundus firm Skin: General skin exam: normal color Neuro: General: patient oriented x3 Extrem: General: normal to inspection Psych: Appearance: grossly normal Affect: normal affect Attitude: cooperative
--- NOTE | 2025-02-11 09:14 | PM.OBDSVD ---
DS: Admitting Diagnosis Discharge Date 02/13/2025 <Esteban Persaud MD - Last Filed: 02/13/25 09:53> Admitting Diagnosis CHTN-- uncontrolled morbid obesity <Mary Villeda MD - Last Filed: 02/11/25 09:16> DS: Discharge Diagnosis Discharge Diagnosis (1) S/P section: Code(s): Z98.891 - History of uterine scar from previous surgery <Mary Villeda MD - Last Filed: 02/11/25 09:16> Status: Acute <Mary Villeda MD - Last Filed: 02/11/25 09:16> (2) Chronic hypertension affecting : Code(s): O10.919 - Unspecified pre-existing hypertension complicating , unspecified trimester <Mary Villeda MD - Last Filed: 02/11/25 09:16> Status: Acute <Mary Villeda MD - Last Filed: 02/11/25 09:16> OB - DS: Summary OB Procedures : NST, PIH Mgmt and Ultrasound <Mary Villeda MD - Last Filed: 02/11/25 09:16> OB Procedures Intrapartum: low cervical, transverse <Mary Villeda MD - Last Filed: 02/11/25 09:16> OB Procedures: : None <Mary Villeda MD - Last Filed: 02/11/25 09:16> Peripartum Data Infant Delivery Method: Section <Mary Villeda MD - Last Filed: 02/11/25 09:16> Procedures: Procedures Operation Date: 02/10/25 06:15 Actual Procedure Side Surgeon p Section Bilateral Mary Villeda MD <Mary Villeda MD - Last Filed: 02/11/25 09:16> complications: none <Mary Villeda MD - Last Filed: 02/11/25 09:16> [place] 1: Gender: Male <Mary Villeda MD - Last Filed: 02/11/25 09:16> Disposition of : home <Mary Villeda MD - Last Filed: 02/11/25 09:16> Status at Discharge Functional status at discharge: independent ambulation <Mary Villeda MD - Last Filed: 02/11/25 09:16> Overall status at discharge: patient is back to baseline <Mary Villeda MD - Last Filed: 02/11/25 09:16> Time Spent with Patient Time attestation: Total time spent providing and/or coordinating discharge services: <Mary Villeda MD - Last Filed: 02/11/25 09:16> Exam Const: General: cooperative, comfortable, no acute distress and obese <Mary Villeda MD - Last Filed: 02/11/25 09:16> Nutritional Appearance: obese morbidly obese <Mary Villeda MD - Last Filed: 02/11/25 09:16> Orientation/consciousness: patient oriented x3 <Mary Villeda MD - Last Filed: 02/11/25 09:16> Resp: Effort & Inspection: normal respiratory effort <Mary Villeda MD - Last Filed: 02/11/25 09:16> Auscultation: clear to auscultation bilaterally <Mary Villeda MD - Last Filed: 02/11/25 09:16> Cardio: Rate: regular rate <Mary Villeda MD - Last Filed: 02/11/25 09:16> GI: Inspection: non-distended, incision (covered with BULL dressing) and Pannus present <Mary Villeda MD - Last Filed: 02/11/25 09:16> GI Palp: No abdominal tenderness and Yes Soft to palpation <Mary Villeda MD - Last Filed: 02/11/25 09:16> Auscultation: normal bowel sounds <Mary Villeda MD - Last Filed: 02/11/25 09:16> : Other: fundus firm <Mary Villeda MD - Last Filed: 02/11/25 09:16> Skin: General skin exam: normal color <Mary Villeda MD - Last Filed: 02/11/25 09:16> Neuro: General: patient oriented x3 <Mary Villeda MD - Last Filed: 02/11/25 09:16> Extrem: General: normal to inspection <Mary Villeda MD - Last Filed: 02/11/25 09:16> Psych: Appearance: grossly normal <Mary Villeda MD - Last Filed: 02/11/25 09:16> Affect: normal affect <Mary Villeda MD - Last Filed: 02/11/25 09:16> Attitude: cooperative <Mary Villeda MD - Last Filed: 02/11/25 09:16> DS: Data Data Completed and Pending Pending studies at discharge: Pending at discharge 02/10/25 06:52 Cytology [PTH] Routine <Mary Villeda MD - Last Filed: 02/11/25 09:16> Labs on day of discharge: Labs from last 24 hours 02/11/25 02/10/25 04:28 14:28 WBC 12.7 H 14.9 H RBC 3.26 L 3.57 L Hgb 10.0 L 10.6 L Hct 29.9 L 32.6 L MCV 91.7 91.3 MCH 30.7 29.7 MCHC 33.4 32.5 RDW 13.1 12.9 Plt Count 228 238 MPV 9.4 9.3 Immature Gran % (Auto) 0.9 H Neut % (Auto) 68.2 Lymph % (Auto) 20.9 [place] % (Auto) 7.6 Eos % (Auto) 1.8 Baso % (Auto) 0.6 Lymph # (Auto) 2.65 [place] # (Auto) 1.0 H Eos # (Auto) 0.2 Baso # (Auto) 0.1 Abs Immat Gran (auto) 0.11 H Absolute Neuts (auto) 8.7 H Absolute Nucleated RBC 0.000 Nucleated RBC % 0.0 Sodium 133 L Potassium 3.8 Chloride 108 H Carbon Dioxide 19 L Anion Gap 6 BUN 6 L D Creatinine 0.40 L Estim Creat Clear Calc 250 Estimated GFR > 60 Glucose 97 Calcium 8.2 L Total Bilirubin 0.2 AST 21 ALT 13 Alkaline Phosphatase 71 Total Protein 5.0 L Albumin 2.6 L <Mary Villeda MD - Last Filed: 02/11/25 09:16> Discharge Plan Discharge Attending physician on discharge: Mary Villeda <Mary Villeda MD - Last Filed: 02/11/25 09:16> Mary Villeda <Esteban Persaud MD - Last Filed: 02/13/25 09:53> Discharging Clinician: Esteban Persaud <Mary Villeda MD - Last Filed: 02/11/25 09:16> Esteban Persaud <Esteban Persaud MD - Last Filed: 02/13/25 09:53> Anticipated Discharge Date/Time: 02/13/25 09:00 <Mary Villeda MD - Last Filed: 02/11/25 09:16> Patient Disposition: Home, Self-Care <Mary Villeda MD - Last Filed: 02/11/25 09:16> Activity: may shower and pelvic rest <Mary Villeda MD - Last Filed: 02/11/25 09:16> may shower and pelvic rest <Esteban Persaud MD - Last Filed: 02/13/25 09:53> Diet: regular <Mary Villeda MD - Last Filed: 02/11/25 09:16> regular <Esteban Persaud MD - Last Filed: 02/13/25 09:53> Discharge Instructions: no lifting over 15 pounds call if issues with BULL dressing <Mary Villeda MD - Last Filed: 02/11/25 09:16> Patient Instructions: (DC) <Mary Villeda MD - Last Filed: 02/11/25 09:16> Patient Language: Mongolian <Mary Villeda MD - Last Filed: 02/11/25 09:16> Stand Alone Forms: General Discharge Information <Mary Villeda MD - Last Filed: 02/11/25 09:16> Follow-up/Referrals: Mary Villeda MD [Physician] - 1 Week <Mary Villeda MD - Last Filed: 02/11/25 09:16> Discharge Medications: New acetaminophen 325 mg Tablet 650 mg PO Q6H Qty: 60 0RF fluconazole 150 mg Tablet 150 mg PO Q72H Qty: 3 0RF hydrocodone-acetaminophen 5-325 mg Tablet 1 tablet PO Q3H PRN (Reason: Breakthrough Pain Rated 4-6) Qty: 24 0RF docusate sodium 100 mg Capsule 100 mg PO BID Qty: 90 0RF ibuprofen 600 mg Tablet 600 mg PO Q6H Qty: 40 0RF Continued Classic 28 mg iron- 800 mcg tablet 1 tablet PO DAILY nystatin-triamcinolone 100,000-0.1 unit/gram-% ointment 1 applic topical BID Qty: 30 1RF labetalol 200 mg tablet 200 mg PO Q12H Qty: 120 0RF nystatin 100,000 unit/gram powder 1 applic topical BID Qty: 15 1RF nifedipine 60 mg tablet extended release 60 mg PO DAILY Qty: 60 0RF famotidine 20 mg tablet See Rx Instructions .ROUTE .COMPLEX Qty: 30 0RF Dose Instruction: TAKE 1 TABLET BY MOUTH EVERY DAY Rx Instructions: TAKE 1 TABLET BY MOUTH EVERY DAY Discontinued aspirin [Adult Low Dose Aspirin] 81 mg tablet,delayed release (DR/EC) 162 mg PO DAILY <Mary Villeda MD - Last Filed: 02/11/25 09:16> Date of admission: 02/08/25 16:12 <Mary Villeda MD - Last Filed: 02/11/25 09:16> Primary Care Provider: Yvon Crook <Mary Villeda MD - Last Filed: 02/11/25 09:16> Admitting Provider: Mary Villeda <Mary Villeda MD - Last Filed: 02/11/25 09:16> Attending physician on admission: Mary Villeda <Mary Villeda MD - Last Filed: 02/11/25 09:16> Condition: Stable <Mary Villeda MD - Last Filed: 02/11/25 09:16>
[2025-02-11] MEDS: LIDOCAINE 5% PATCH 1 PATCH TRANSDERM (11:47)
[2025-02-11] MEDS: IBUPROFEN 600 MG TABLET PO ×3 (11:48→23:30)
[2025-02-11] MEDS: ENOXAPARIN 40 MG/0.4 ML SYRINGE SUB-Q (21:35)
[2025-02-12] MEDS: ACETAMINOPHEN 325 MG TABLET 650 MG PO ×4 (05:00→23:20)
[2025-02-12] MEDS: IBUPROFEN 600 MG TABLET PO ×4 (05:00→23:20)
[2025-02-12 08:30] VITALS: BP 149/91; PULSE 85; RESP 18; TEMP 36.9; O2SAT 98
[2025-02-12] MEDS: SIMETHICONE 80 MG TAB.CHEW PO ×3 (09:00→17:40)
[2025-02-12] MEDS: LABETALOL HCL 100 MG TABLET 200 MG PO ×2 (09:01→20:15)
[2025-02-12] MEDS: FAMOTIDINE 20 MG TABLET PO (09:01)
[2025-02-12] MEDS: NIFEdipine 30 MG TAB.ER.24 60 MG PO (09:01)
[2025-02-12] MEDS: DOCUSATE SODIUM 100 MG CAPSULE PO ×2 (09:01→17:40)
[2025-02-12] MEDS: MULTIVIT/MIN/PREN/FOL AC/IRON TABLET 1 TAB PO (09:02)
--- NOTE | 2025-02-12 10:47 | PM.OBPNVD ---
OB - PN: Subj Subjective Date/time seen: 02/12/25 10:47 S: Diet ambulation well tolerated. Pain control excellent. No issues or concerns at this time. Bottle feeding exclusively. O: VSS afebrile Abdomen positive bowel sounds soft appropriately tender Labs noted A: Doing well postoperatively. P: Discharge home tomorrow. Note: Circumcision held due to feeding issues, will perform tomorrow. OB - PN: Obj Data Labs 02/11/25 04:28 02/11/25 04:28 OB - PN A/P Time Spent With Patient Time: Total time spent is greater than 50% in coordination of care (as documented) at patient's floor/unit and/or counseling patient:
[2025-02-12] MEDS: MEASLES,MUMPS,RUBELLA VACCINE 0.5 ML VIAL SUB-Q (12:00)
[2025-02-12 20:15] VITALS: BP 144/74; PULSE 101; RESP 18; TEMP 36.6; O2SAT 99
[2025-02-12] MEDS: ENOXAPARIN 40 MG/0.4 ML SYRINGE SUB-Q (20:15)
[2025-02-13] MEDS: ACETAMINOPHEN 325 MG TABLET 650 MG PO ×2 (05:20→10:04)
[2025-02-13] MEDS: IBUPROFEN 600 MG TABLET PO ×2 (05:20→10:04)
[2025-02-13 09:00] VITALS: BP 155/81; PULSE 93; RESP 18; TEMP 37.3; O2SAT 100
[2025-02-13] MEDS: NIFEdipine 30 MG TAB.ER.24 60 MG PO (10:02)
[2025-02-13] MEDS: FAMOTIDINE 20 MG TABLET PO (10:03)
[2025-02-13] MEDS: HYDROcodone/acetaminophen (*CRX) 5-325 MG TABLET 1 TAB PO (10:03)
[2025-02-13] MEDS: LABETALOL HCL 100 MG TABLET 200 MG PO (10:04)
[2025-02-13] MEDS: MULTIVIT/MIN/PREN/FOL AC/IRON TABLET 1 TAB PO (10:04)
[2025-02-13] MEDS: SIMETHICONE 80 MG TAB.CHEW PO (10:05)
[2025-02-13] MEDS: DOCUSATE SODIUM 100 MG CAPSULE PO (10:05)
[2025-02-13] MEDS: FLUCONAZOLE 150 MG TABLET PO (10:06)
--- NOTE | 2025-02-13 10:38 | PC.NURSE ---
Patient states that she would like BULL dressing changed before discharge. She states, If I go home with this dressing like this, I will get an infection. Spoke with Dr. Persaud regarding this. He is OK with patient getting dressing changed today, but she will need to bring a new BULL dressing to her follow up appointment in office. I will make sure she is sent home with a new dressing.
--- NOTE | 2025-02-13 12:01 | PC.NURSE ---
Patient very concerned about her dressing on her incision. Patient requesting dressing be changed. Old BULL dressing was removed. A small amount of old drainage was noted. Incision was well approximated, skyler intact, no redness noted. Surrounding skin was cleaned and dried with alcohol swabs. Once skin was dried a new BULL dressing was applied. Unable to get a good seal with dressing, even with reinforcement tape was applied. Patient informed that it was not completely sealed and to keep dressing area dry. Verb understanding. Patient has a followup here in the hospital tomorrow. Will reassess dressing at that time.
[2025-02-14 08:41] VITALS: BP 145/93; PULSE 84; RESP 20; TEMP 36.6; O2SAT 98
== END 2025-02-13 15:00 | disposition home or self-care (01) | DRG 540 ==
LOC: ANHOB2 02-11 09:14 → ANHLDR 02-15 09:11
PROVIDERS: Admitting Provider Obstetrics & Gynecology; PCP Emergency Medicine; Visit Provider Obstetrics & Gynecology
PROC: 10D00Z1 Extraction of Products of Conception, Low, Open Approach (ICD-10-PCS; CPT 59514; principal; 2025-02-10 06:15)
DX: O10.92 Unspecified pre-existing hypertension complicating childbirth (principal); Z37.0 Single live birth; Z3A.37 37 weeks gestation of pregnancy; O99.824 Streptococcus B carrier state complicating childbirth; O63.9 Long labor, unspecified; O61.0 Failed medical induction of labor; O42.02 Full-term premature rupture of membranes, onset of labor within 24 hours of rupture
CPT/HCPCS: 36415; 80053; 81001; 82570; 84156; 84550; 85025; 85027; 86593; 86703; 86850; 86900; 86901; 88307; 90710; A4248; A9270; G0432; J0290; J0456; J1580; J1650; J1885; J2004; J2274; J2405; J2590; J2795; J3010; J3480; J7120